=== PATIENT | female | born 2000 | race Caucasian/White ===

== ENCOUNTER 2023-04-16 14:40 | Emergency (ER) | payer BC, SELFPAY ==
[2023-04-16 14:50] VITALS: BP 133/84; PULSE 92; RESP 18; TEMP 36.4; O2SAT 97; BMI 34.3
--- NOTE | 2023-04-16 14:51 | XR_ITS ---
The [address] [address] Patient Name: CHACE KHANNA MRN: [id number] date: 2000 Sex: F Assigned Patient Location: ER Current Patient Location: ER Accession/Order Number: [id number] Exam Date: 04/16/2023 14:55 Report Date: 04/16/2023 15:46 At the request of: MAVERICK FAM Procedure: XR elbow RT min 3V EXAM: XR elbow RT min 3V HISTORY: injury COMPARISON: None. TECHNIQUE: 3 views FINDINGS: There is an impacted fracture of the radial neck. The proximal ulna and distal humerus are intact. Articulations at the elbow are intact. Soft tissue swelling is noted, with displacement of distal humeral fat pads. XR/XR elbow RT min 3V IMPRESSION: Impacted radial neck fracture. Electronically authenticated by: Shalonda SCHULZ Date: 04/16/2023 15:46
--- NOTE | 2023-04-16 15:10 | PC.NURSE ---
Pt tripped and fell onto R arm -- some swelling to area. denies any chance of
--- NOTE | 2023-04-16 16:14 | ED_ITS ---
HPI - General Adult General Chief complaint: Extremity Injury, Upper Stated complaint: FELL ON R ARM, MIGHT BE BROKEN Time Seen by Provider: 04/16/23 15:54 Source: patient Mode of arrival: walk-in Limitations: no limitations History of Present Illness HPI narrative: Patient is a 23-year-old female who is presenting to the Emergency Room with chief complaint of right elbow pain. Patient Was on a ladder and getting down, patient had a misstep and fell to the side, most of her weight fell onto the right elbow. Patient did not hit her head. She has no headache. No headache or neck pain. No abdominal pain, nausea or vomiting. No other extremity injury except to right elbow. Patient is right-hand dominant. Patient states the pain is in the right elbow radiating slightly down into the right forearm mid sectio n. Patient has no right hand and right wrist pain. No right shoulder pain no right clavicle pain. No back pain, no other acute complaints. . All systems are negative except as noted/marked. All systems reviewed and otherwise negative. . Nurses note and vital signs reviewed and patient is not hypoxic. General: The patient appears well and in no apparent distress. Patient is resting comfortably on cart. Patient is not toxic, lethargic, or listless Skin: Warm, dry, no pallor noted. There is no rash noted. No petechiae, purpura. Head: Normocephalic, atraumatic, Patient has no midline or paracervical tenderness to palpation. Patient has full range of motion of cervical spinal no difficulty. Eye: Normal conjunctiva, no drainage, EOMI. PERRL Ears, Nose, Mouth, and Throat: oral mucosa is moist. Nares patent. Mouth without vesicles. Cardiovascular: Regular Rate and Rhythm, no murmur, gallop, rub Respiratory: Patient is in no distress, no accessory muscle use, lungs are clear to auscultation, no wheezing, rales or rhonchi Back: non-tender, GI: soft, no tenderness Musculoskeletal: Patient has full range of motion of all of the extremities Except the right elbow. Patient has limited range of motion of flexion and extension supination pronation of the right elbow with moderate pain. Patient has mild swelling to the proximal 3rd of the right forearm and to the right elbow. No ecchymosis noted. Otherwise no motor, sensory, or focal neurological deficits Neurological: A&O x3, normal speech Psychiatric: Cooperative Related Data Previous Rx's Medication Instructions Recorded hydrocodone 5 mg-acetaminophen 325 1 tab PO Q6H PRN pain #10 tabs 04/16/23 mg tablet Allergies Allergy/AdvReac Type Severity Reaction Status Date / Time No Known Drug Allergies Allergy Verified 04/16/23 14:50 PFSH PFSH Social History Smoking status: Never smoker Exam Constitutional Vital Signs, click to edit/add: Last Vital Signs Temp 97.6 F 04/16/23 14:50 Pulse 92 H 04/16/23 14:50 Resp 18 04/16/23 14:50 BP 133/84 H 04/16/23 14:50 Pulse Ox 97 04/16/23 14:50 O2 Del Method Room Air 04/16/23 14:50 Course Vital Signs Vital signs: Vital Signs Temperature 97.6 F 04/16/23 14:50 Pulse Rate 92 H 04/16/23 14:50 Respiratory Rate 18 04/16/23 14:50 Blood Pressure 133/84 H 04/16/23 14:50 Pulse Oximetry 97 04/16/23 14:50 Oxygen Delivery Method Room Air 04/16/23 14:50 Temperature 97.6 F 04/16/23 14:50 Pulse Rate 92 H 04/16/23 14:50 Respiratory Rate 18 04/16/23 14:50 Blood Pressure 133/84 H 04/16/23 14:50 Pulse Oximetry 97 04/16/23 14:50 Oxygen Delivery Method Room Air 04/16/23 14:50 Medical Decision Making MDM Narrative Medical decision making narrative: Patient has no obvious signs of fracture on the right elbow x-ray, but she does have a positive anterior and posterior fat pad sign. Patient was placed in a long arm posterior splint and sling. Patient was sent home with a few Clements to use if needed for severe pain. Patient took 1000 mg of Tylenol and 800 mg of Motrin prior to arrival with ice. 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 Education done at bedside on Rice therapy, a management, and following up with orthopedic surgery. Patient understands Aleve or sling on at all times. Patient has seen Dr. Melvin or Kristine previously in the past, she was given a name and number to follow up with him again. No questions at discharge. Discharge Plan Discharge Chief Complaint: Extremity Injury, Upper Clinical Impression: Closed fracture of head of right radius Patient Disposition: Home, Self-Care Condition: Fair Prescriptions / Home Meds: New hydrocodone-acetaminophen 5-325 mg tablet 1 tab PO Q6H PRN (Reason: pain) Qty: 10 0RF Instructions: Arm Fracture in Adults (DC), Elbow Fracture (ED), Splint Care (ED) Additional Instructions: Ice 20 minutes on, 20 minutes off. Call orthopedic surgery on Tuesday for follow- up. Keep her splint on at all times. Use your sling as needed as well. Keep your splint dry in the shower or bath. Alternate Tylenol and Motrin every 4 hours for pain. Do not take the pain pill with Tylenol, he could actually take too much Tylenol together. Pain medication may cause constipation, be cautious. As discussed at bedside, Dr. Melvin or Kristine by the orthopedic surgeons down the road in [place] to call on Tuesday. [phone] Stand Alone Forms: Portal Instructions Referrals: Meena Tim MD [Primary Care Provider] - 1 week Discharge Date/Time: 04/16/23 16:26 Procedures ED Procedure Instructions Procedures Procedures: Patient had a long arm posterior splint and sling placed to the right arm Splint was assisted with . the patient was neurovascularly intact before and after the splint was placed. the affected bones/injured area had proper alignment in a splint. Education on splint care at home was given at bedside. Patient and family have no questions at discharge.
== END 2023-04-16 16:26 | disposition home or self-care (01) ==
PROVIDERS: Emergency Provider Emergency Medicine; PCP Family Medicine
DX: S52.121A Displaced fracture of head of right radius, initial encounter for closed fracture (principal); W11.XXXA Fall on and from ladder, initial encounter
CPT/HCPCS: 29105; 73080; 99283

== ENCOUNTER 2023-07-22 14:10 | Outpatient (OUT) | payer BC, SELFPAY ==
[2023-07-22 14:38] LABS: Basophils Percent Auto 0.5 % (0.2-2.0); Eosinophils Absolute Auto 0.2 10^3/uL (0.0-0.7); Hematocrit 39.6 % (36.0-48.0); Hemoglobin 13.5 g/dL (12.0-16.0); Immature Granulocytes Abs Auto 0.02 10^3/uL (0.00-0.03); Immature Granulocytes Pct Auto 0.2 % (0.0-0.5); Lymphocytes Absolute Auto 1.8 10^3/uL (1.2-3.8); Lymphocytes Percent Auto 21.2 % (20.5-60.0); Mean Corpuscular HGB Conc 34.1 g/dL (29.9-35.2); Mean Corpuscular Hemoglobin 29.5 pg (26.7-34.0); Mean Corpuscular Volume 86.5 fL (81.0-99.0); Mean Platelet Volume 8.6 fL (9.5-13.5); Monocytes Absolute Auto 0.8 10^3/uL (0.3-0.8); Monocytes Percent Auto 9.9 % (1.7-12.0); Neutrophils Absolute Auto 5.6 10^3/uL (1.4-6.5); Neutrophils Percent Auto 66.2 % (43.0-75.0); Platelet Count 341 10^3/uL (150-450); Red Blood Count 4.58 10^6/uL (4.20-5.40); Red Cell Distribution Width 12.6 % (11.0-15.0); White Blood Count 8.4 10^3/uL (4.0-11.0)
--- NOTE | 2023-07-22 14:56 | ECG_ITS ---
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
[2023-07-22 15:16] LABS: Free T4 0.85 ng/dL (0.76-1.46)
[2023-07-22 15:21] LABS: Anion Gap 11.5; BUN Creatinine Ratio 12.8; Calcium 8.7 mg/dL (8.5-10.1); Carbon Dioxide 27.3 mmol/L (21.0-32.0); Chloride 103 mmol/L (98-107); Estimated GFR (African America >60 (>=60); Estimated GFR (Non-African Ame >60 (>=60); Glucose 84 mg/dL (74-106); Potassium 3.8 mmol/L (3.5-5.1); Sodium 138 mmol/L (136-145); Thyroid Stimulating Hormone 1.038 uIU/mL (0.358-3.740)
== END 2023-07-22 14:11 | disposition home or self-care (01) ==
PROVIDERS: PCP Family Medicine; Visit Provider Family Medicine
DX: R55 Syncope and collapse (principal); E03.9 Hypothyroidism, unspecified
CPT/HCPCS: 36415; 80048; 84439; 84443; 85025; 93005

== ENCOUNTER 2024-01-11 15:58 | Outpatient (OUT) | payer BC, SELFPAY ==
[2024-01-11 16:17] LABS: Basophils Absolute Auto 0.1 10^3/uL (0.0-0.1); Basophils Percent Auto 0.6 % (0.2-2.0); Eosinophils Absolute Auto 0.2 10^3/uL (0.0-0.7); Eosinophils Percent Auto 2.1 % (0.9-7.0); Hematocrit 39.6 % (36.0-48.0); Hemoglobin 13.1 g/dL (12.0-16.0); Immature Granulocytes Abs Auto 0.03 10^3/uL (0.00-0.03); Immature Granulocytes Pct Auto 0.3 % (0.0-0.5); Lymphocytes Absolute Auto 2.5 10^3/uL (1.2-3.8); Lymphocytes Percent Auto 25.8 % (20.5-60.0); Mean Corpuscular HGB Conc 33.1 g/dL (29.9-35.2); Mean Corpuscular Hemoglobin 28.5 pg (26.7-34.0); Mean Corpuscular Volume 86.1 fL (81.0-99.0); Mean Platelet Volume 8.8 fL (9.5-13.5); Monocytes Absolute Auto 0.8 10^3/uL (0.3-0.8); Monocytes Percent Auto 8.6 % (1.7-12.0); Neutrophils Absolute Auto 6.1 10^3/uL (1.4-6.5); Neutrophils Percent Auto 62.6 % (43.0-75.0); Platelet Count 326 10^3/uL (150-450); Red Cell Distribution Width 13.2 % (11.0-15.0); White Blood Count 9.7 10^3/uL (4.0-11.0)
[2024-01-11 16:49] LABS: Alanine Aminotransferase 35 U/L (14-59); Albumin Globulin Ratio 0.9; Albumin Level 3.5 g/dL (3.4-5.0); Alkaline Phosphatase 70 U/L (46-116); Anion Gap 12.9; Aspartate Amino Transferase 24 U/L (15-37); BUN Creatinine Ratio 14.8; Bilirubin Total 0.2 mg/dL (0.2-1.0); Calcium 9.2 mg/dL (8.5-10.1); Carbon Dioxide 27.9 mmol/L (21.0-32.0); Chloride 101 mmol/L (98-107); Estimated GFR (African America >60 (>=60); Estimated GFR (Non-African Ame >60 (>=60); Glucose 90 mg/dL (74-106); Potassium 3.8 mmol/L (3.5-5.1); Sodium 138 mmol/L (136-145); Thyroid Stimulating Hormone 1.854 uIU/mL (0.358-3.740); Total Protein 7.5 g/dL (6.4-8.2)
[2024-01-11 17:11] LABS: Free T4 0.91 ng/dL (0.76-1.46)
== END 2024-01-11 15:59 | disposition home or self-care (01) ==
LOC: LAB 16:00
PROVIDERS: PCP Family Medicine
DX: F31.12 Bipolar disorder, current episode manic without psychotic features, moderate (principal)
CPT/HCPCS: 36415; 80053; 82306; 82607; 84439; 84443; 85025

== ENCOUNTER 2024-04-14 14:33 | Emergency (ER) | payer BC, SELFPAY ==
[2024-04-14 14:37] VITALS: BP 128/86; PULSE 87; TEMP 36.8; O2SAT 100; BMI 35.5
--- OUTSIDE RECORDS SUMMARY | 2024-04-14 14:41 | XMS_ITS | CCD ---
Author Organization [facility] CliniSym[facility] Care Team Providers Care Acute Care Nursing Assistant Name Role Phone No, Physician Primary Care Provider Unavailshen AVALOS, PHYSICIAN Primary Care Unavailable JAZ CAMPOS Attending Unavailable BAILEY, PHYSICIAN Primary Care Unavailable JOE JIMENEZ Admitting Unavailable JOE JIMENEZ Consulting Unavailable JOE JIMENEZ Attending Unavailable MD Meena Olmos Primary Care Provider DO Jaz Farrell Emergency Provider Meena Leigh Unavailable Sarah Bennett Unavailable AMARILIS, DR MEENA Guido Primary Care Unavailable MISC, DR HYDE Attending Unavailable MISC, DR HYDE Consulting Unavailable MISC, DR HYDE Admitting Unavailable OLMOS, DR MEENA Guido Admitting Unavailable OLMOS, DR MEENA Guido Attending Unavailable AMARILIS, DR MEENA Guido Consulting Unavailable AMARILIS, DR MEENA Guido Primary Care Unavailable AMARILIS, DR MEENA Guido Admitting Unavailable AMARILIS, DR MEENA Gudio Referring Unavailable OLMOS, DR MEENA Guido Attending Unavailable AMARILIS, DR MEENA Guido Consulting Unavailable AMARILIS, DR MEENA Guido Primary Care Unavailable RAJEEV HUBER Admitting Unavailable RAJEEV HUBER Attending Unavailable RAJEEV HUBER Consulting Unavailable AMARILIS, DR MEENA Guido Primary Care Unavailable Mayo Ellis Consulting Unavailable NABOR PIKE Attending Unavailable Cynthia Sarah Unavailable NABOR PIKE Admitting Unavailable NABOR PIKE Attending Unavailable NABOR PIKE Primary Care Unavailable MD Meena Olmos Primary Care Provider JOSE Payne Emergency Provider JOSE Salas Emergency Provider [phone] Arielle Payne Admitting Unavailable Arielle Payne Attending Unavailable Meena Olmos Primary Care Unavailable Tonie Salas Admitting Unavailable Tonie Salas Attending Unavailable Meena Olmos Primary Care Unavailable Allergies Allergy Classification Reported Allergen(s) Allergy Type Date of Onset Reaction(s) Facility (4 sources) patient allergy list reviewed by nurse or physicia Propensity to adverse reactions 7 Comment:Done NWIX Other (4 sources) Allergies Reconciled Propensity to adverse reactions Unknown NWIX Other Medications Current Medications Medication Drug Class(es) Dates Sig (Normalized) Sig (Original) amoxicillin 875 mg / clavulanate 125 mg oral tablet (3 sources) Penicillin-class Antibacterial Start: 10-21-2022 take 1 tablet by mouth every twelve hours Amoxicillin-Pot Clavulanate 875-125 MG 1 tablet Orally every 12 hrs for 10 day(s) Sep, Active cefdinir 300 mg oral capsule (1 source) Cephalosporin Antibacterial Start: 10-28-2023 Cefdinir 300 MG as directed Orally bid for 7 days Oct, Active Norgestimate-Ethin yl Estradiol (11 sources) Progestin, Estrogen Start: 11-24-2023 take 1 tablet by mouth once daily Norgestimate-Ethi nyl Estradiol (Sprintec (28)) 0.25-35 mg-mcg tablet Active 1 TAB PO Daily November 24, 2023 1:00am Start: 06-18-2020 take 1 tablet by [place] [facility] once daily Estarylla 0.25-35 mg-mcg per tablet Take 1 tablet by mouth daily . 0 06/18/2020 Active Start: 06-18-2020 Estarylla 0.25 -35 mg-mcg per tablet take 1 tablet by [place] th every twenty-four hours Sprintec 28 0.25-35 MG-MCG 1 tablet Orally Once a day Active FLUoxetine 10 mg oral capsule (6 sources) Serotonin Reuptake Inhibitor Start: 11-24-2023 take 1 capsule by mouth once daily Fluoxetine (Prozac) 10 mg capsule Active 10 MG PO Daily November 24, 2023 1:00am take 1 capsule by mo [facility] every twenty-four hours PROzac 10 MG 1 tablet once a day Active ibuprofen 800 mg oral tablet (4 sources) Nonsteroidal Anti-inflammatory Drug Start: 07-15-2020 take 1 tablet by mouth every six hours as needed ibuprofen (ADVIL,MOTRIN) 800 MG tablet Take 800 mg by mouth every 6 (six) hours as needed . 0 07/15/2020 Active End: 08-07-2020 take 1 tablet by mouth every six hours as needed ibuprofen (ADVIL,MOTRIN) 400 MG tablet Take 400 mg by mouth every 6 (six) hours as needed for pain . 0 08/07/2020 Discontinued (Stop Taking at Discharge) lamoTRIgine 150 mg oral tablet (12 sources) Mood Stabilizer, Anti-epileptic Agent Start: 11-24-2023 take 150 mg by mouth once daily Lamotrigine Active 150 MG PO Daily November 24, 2023 1:00am Start: 04-17-2022 End: 11-24-2023 take 100 mg by mouth once daily Lamotrigine Discontinued 100 MG PO Daily April 17, 2022 12:00am November 24, 2023 9:32am lamoTRIgine 150 MG Oral for 30 Days Active levothyroxine sodium 0.05 mg oral tablet (12 sources) l-Thyroxine Start: 12-30-2023 take 1 tablet by mouth once daily Levothyroxine Active 0 .ROUTE .COMPLEX December 30, 2023 10:47pm TAKE 1 TABLET BY MOUTH EVERY DAY Start: 04-17-2022 End: 12-30-2023 take 50 ug by mouth once daily Levothyroxine Discontin ued 50 MCG PO Daily April 17, 2022 12:00am December 30, 2023 10:47pm take 1 tablet by [place] th once daily Levothyroxine Sodium 50 MCG TAKE 1 TABLET BY MOUTH EVERY DAY Active QUEtiapine 25 mg oral tablet (6 sources) Atypical Antipsychotic Start: 11-24-2023 take 75 mg by mouth once daily Quetiapine Active 75 MG PO Daily November 24, 2023 1:00am QUEtiapine Fumar ate 25 MG 1 tablet & 1 50 mg. tablet once a day for the 75 mg. Active sertraline 25 mg oral tablet (2 sources) Serotonin Reuptake Inhibitor Start: 07-11-2020 take 1 tablet by mouth once daily sertraline (ZOLOFT) 25 MG tablet Take 25 mg by mouth daily . 0 07/11/2020 Active traMADol hydrochloride 50 mg oral tablet (2 sources) Opioid Agonist Start: 08-07-2020 End: 08-07-2020 take 1 tablet by mouth every four hours as needed for pain traMADoL (ULTRAM) 50 mg tablet Indications: Appendicitis, unspecified appendicitis type Take 1 (one) tablet (50 mg total) by mouth every 4 (four) hours as needed for pain (postoperative pain) . 5 tablet 0 08/07/2020 Active Completed/Discontinued Medications Medication Drug Class(es) Dates Sig (Normalized) Sig (Original) acetaminophen 325 mg oral tablet (3 sources) Start: 08-07-2020 End: 08-07-2020 take 1 tablet by mouth every eight hours 975 mg, Oral, Every 8 hours, First dose on Nicky 08/07/20 at 1800 []Do not give within 6 hours of last dose of IV acetaminophen (OFIRMEV). []Give when patient is tolerating Oral Intake. [] Maximum dose of 4 grams in 24 hours. Start: 08-06-2020 End: 08-07-2020 650 mg, Oral, As needed, mil d pain, Starting Nicky 08/07/20 at 0756, PACU (only) calcium chloride 0.001 meq/ml / glucose 50 mg/ml / potassium chloride 0.004 meq/ml / sodium chloride 0.103 meq/ml / sodium lactate 0.028 meq/ml injectable solution (1 source) Start: 08-06-2020 End: 08-07-2020 take 125 mL intravenous route every hour 125 mL/hr, Intravenous, Continuous, Starting 08/06/20 at 1945 cefoTEtan (CEFOTAN) 2000 mg in sodium chloride (NS) 0.9% 50 mL MBP (2 sources) Start: 08-07-2020 End: 08-07-2020 take 2000 mg intravenous route every twelve hours 2,000 mg, Intravenous, at 100 mL/hr, Every 12 hours, First dose on Nicky 08/07/20 at 0600 Indication: appendicitis Start: 08-06-2020 End: 08-06-2020 cefoTEtan (CEFOTAN) 2000 mg in sodium chloride (NS) 0.9% 50 mL MBP 2 ml dicyclomine hydrochloride 10 mg/ml injection (1 source) Anticholinergic Start: 08-06-2020 End: 08-06-2020 dicyclomine (BENTYL) injection 20 mg 0.4 ml enoxaparin sodium 100 mg/ml prefilled syringe (1 source) Low Molecular Weight Heparin Start: 08-07-2020 End: 08-07-2020 inject 40 mg by subcutaneous injection once daily 40 mg, Subcutaneous, Daily, First dose on Nicky 08/07/20 at 2000 Administer in abdomen unless otherwise directed by prescriber. Notify physician if patient refuses. Indication: VTE Prophylaxis Start: 08-07-2020 End: 08-07-2020 inject 40 mg by subcutaneous injection once daily 40 mg, Subcutaneous, Daily, First dose on Nicky 08/07/20 at 2000 Administer in abdomen unless otherwise directed by prescriber. Notify physician if patient refuses. Indication: VTE Prophylaxis escitalopram 10 mg oral tablet (7 sources) Serotonin Reuptake Inhibitor Escitalopram Oxalate 10 MG Oral for 30 Days Not-Taking/PRN fluticasone propionate 0.05 mg/actuat metered dose nasal spray (4 sources) Corticosteroid Start: 11-24-2023 End: 03-14-2024 Fluticasone Propionate Discontinued 1 SPRAY INTRANASAL Daily November 24, 2023 1:00am March 14, 2024 8:59pm Start: 08-24-2023 take 1 spray(s) nasa l route once daily Fluticasone Propionate 50 MCG/ACT 1 spray in each nostril Nasally Once a day for 14 days Jul, Active Start: 08-24-2023 take 1 spray(s) nasa l route once daily Fluticasone Propionate 50 MCG/ACT 1 spray in each nostril Nasally Once a day for 14 days Jul, Active 0.5 ml HYDROmorphone hydrochloride 1 mg/ml prefilled syringe (1 source) Opioid Agonist Start: 08-06-2020 End: 08-07-2020 take 0.25-0.5 mg intravenous route every three hours as needed 0.25-0.5 mg, Intravenous, Every 3 hours PRN (may repeat), moderate to severe pain, Starting 08/06/20 at 1941 [] Initiate with 0.25 mg IV every 3 hours prn moderate to severe pain. [] For unrelieved pain, may repeat 0.25 mg IV dose within 30 minutes of initial dose. [] If pain is RELIEVED after repeat dose, change to 0.5 mg IV every 3 hours prn moderate to severe pain. [] If pain is UNrelieved after repeat dose, or patient requires dose reduction, call physician. [] May use IV for breakthrough pain or if unable to tolerate oral route. 1 ml morphine sulfate 4 mg/ml cartridge (1 source) Opioid Agonist Start: 08-06-2020 End: 08-06-2020 morphine syringe 4 mg naloxone (NARCAN) injection 0.1 mg (1 source) Start: 08-06-2020 End: 08-07-2020 naloxone (NARCAN) injection 0.1 mg ondansetron 4 mg oral tablet (4 sources) Serotonin-3 Receptor Antagonist Start: 04-17-2022 End: 11-24-2023 take 4 mg by mouth every eight hours Ondansetron Hcl Discontinued 4 MG PO Q8H 12 4 April 17, 2022 12:00am November 24, 2023 9:33am Start: 08-06-2020 End: 08-06-2020 ondansetron (ZOFRAN) injecti on 4 mg ondansetron (ZOFRAN-ODT) disintegrating tablet 4 mg (2 sources) Start: 08-07-2020 End: 08-07-2020 take 1 tablet by mouth every six hours as needed ondansetron (ZOFRAN-ODT) disintegrating tablet 4 mg Start: 08-07-2020 End: 08-07-2020 take 1 tablet by mouth every four hours as needed ondansetron (ZOFRAN-ODT) disintegrating tablet 4 mg oxyCODONE hydrochloride 5 mg oral tablet (1 source) Opioid Agonist Start: 08-06-2020 End: 08-07-2020 take 5-10 mg by mouth every four hours as needed 5-10 mg, Oral, Every 4 hours PRN (may repeat), moderate to severe pain, Starting 08/06/20 at 1950 [] Initiate with 5 mg oral every 4 hours prn moderate to severe pain. [] For unrelieved pain, may repeat 5 mg oral dose within 60 minutes of initial dose. [] If pain is RELIEVED after repeat dose, change to 10 mg oral every 4 hours prn moderate to severe pain. [] If pain is UNrelieved after repeat dose, or patient requires dose reduction, call physician. Sodium Chloride (2 sources) Start: 08-07-2020 End: 08-07-2020 sodium chloride (PF) (NS) flush 5 mL Start: 08-06-2020 End: 08-06-2020 sodium chloride 0.9% (NS) doris fozia 1,000 mL sodium chloride (PF) (NS) 0. 9 % contrast line flush 10 mL (1 source) Start: 08-06-2020 End: 08-07-2020 sodium chloride (PF) (NS) 0. 9 % contrast line flush 10 mL Problems Active Problems Problem Classification Problem Date Documented Date Episodic/Chronic Anxiety disorders (20 sources) Anxiety; Translations: [Anxiety disorder, unspecified] 11-24-2023 Chronic Appendicitis and other appendiceal conditions (4 sources) Appendicitis; Translations: [Disorder of appendix] Onset: 08-06-2020 08-06-2020 Episodic Headache; including migraine (13 sources) Migraine; Translations: [Migraine, unspecified, not intractable, without status migrainosus] 11-24-2023 Chronic Headache; including migraine (12 sources) Headache; Translations: [Headache] 04-17-2022 Episodic Mood disorders (4 sources) Bipolar disorder, current episode manic without psychotic features, moderate; Translations: [BIPOLAR CURRNT MANIC W/O PSYCH MOD] Onset: 12-20-2022 Chronic Nausea and vomiting (3 sources) Nausea and vomiting; Translations: [Nausea with vomiting, unspecified] 04-17-2022 Episodic Open wounds of extremities (2 sources) Laceration of thumb; Translations: [Laceration without foreign body of unspecified thumb without damage to nail, initial encounter] 03-14-2024 Episodic Other aftercare (1 source) Postoperative visit; Translations: [Encounter for other specified surgical aftercare] 03-15-2024 Episodic Other lower respiratory disease (3 sources) Dyspnea; Translations: [Shortness of breath] 04-17-2022 Episodic Other nutritional; endocrine; and metabolic disorders (3 sources) Obese class I; Translations: [Body mass index (BMI) 34.0-34.9, adult] Chronic Other nutritional; endocrine; and metabolic disorders (1 source) Body mass index (BMI) 34.0-34.9, adult; Translations: [Body mass index (BMI) 34.0-34.9, adult] Chronic Other upper respiratory infections (12 sources) Bacterial sinusitis; Translations: [Chronic sinusitis, unspecified] Chronic Other upper respiratory infections (11 sources) Acute upper respiratory infection, unspecified; Translations: [Acute pharyngitis, unspecified] Onset: 02-04-2014 Episodic Syncope (1 source) Syncope and collapse Episodic Thyroid disorders (16 sources) Hypothyroidism; Translations: [Hypothyroidism, unspecified] Onset: 06-09-2022 Chronic Viral infection (3 sources) Viral disease; Translations: [Viral infection, unspecified] 04-17-2022 Episodic Past or Other Problems Problem Classification Problem Date Documented Da te Episodic/Chronic Abdominal pain (5 sources) Lower abdominal pain; Translations: [Left lower quadrant pain] Onset: 06-05-2014 Episodic E Codes: Fall (1 source) Unspecified fall, initial encounter; Translations: [UNSPECIFIED FALL INITIAL ENCOUNTER] Onset: 08-03-2022 Episodic Genitourinary symptoms and ill-defined conditions (4 sources) Dysuria; Translations: [Dysuria] Onset: 11-29-2017 Episodic Intracranial injury (8 sources) Concussion with no loss of consciousness; Translations: [Concussion without loss of consciousness, initial encounter] Onset: 11-09-2016 Episodic Other aftercare (1 source) 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; Translations: [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 CURRENT DRUG THERAPY] Onset: 08-03-2022 Episodic Other aftercare (1 source) snf (current) use of hormonal contraceptives; Translations: [RETIREMENT HORMONAL CONTRACEPTIVES] Onset: 08-03-2022 Episodic Other non-traumatic joint disorders (3 sources) Pain in right ankle and joints of right foot; Translations: [PAIN IN RIGHT ANKLE] Onset: 07-31-2022 Episodic Other skin disorders (4 sources) Acne vulgaris; Translations: [Acne vulgaris] Onset: 12-18-2013 11-24-2023 Episodic Other skin disorders (4 sources) Hirsutism; Translations: [Hirsutism] Onset: 11-18-2016 11-24-2023 Episodic Other skin disorders (2 sources) Acne vulgaris; Translations: [Acne vulgaris] Onset: 12-18-2013 Episodic Other skin disorders (2 sources) Hirsutism; Translations: [Hirsutism] Onset: 11-18-2016 Episodic Ovarian cyst (4 sources) Cyst of ovary; Translations: [Other and unspecified ovarian cyst] Onset: 06-05-2014 Episodic Sprains and strains (1 source) Strain of unspecified muscle and tendon at ankle and foot level, right foot, initial encounter; Translations: [STRAIN UNS M AND T ANK FT LEVL RT INIT] Onset: 08-03-2022 Episodic Unclassified (2 sources) Contact with and (suspected) exposure to covid-19 Z20.822 Urinary tract infections (3 sources) Urinary tract infectious disease; Translations: [Urinary tract infection, site not specified] Onset: 11-29-2017 Episodic Urinary tract infections (1 source) Urinary tract infections; Translations: [Urinary tract infection, site not specified] Onset: 11-29-2017 Viral infection (1 source) COVID-19 Results Test Name Value Interpretation Reference Range Facility Basophils Auto (Bld) [#/Vol] on 01-11-2024 Basophils (Bld) [#/Vol] 0.1 10 3/uL 0.0-0.1 [facility] Basophils/100 WBC Auto (Bld) on 01-11-2024 Basophils/100 WBC (Bld) 0.6 % 0.2-2.0 [facility] Eosinophils/100 WBC Auto (Bl d)on 01-11-2024 Eosinophils/100 WBC (Bld) 2.1 % 0.9-7.0 [facility] Erythrocyte distribution wid th Auto (RBC) [Ratio]on 01-11-2024 Erythrocyte distribution width (RBC) [Ratio] 13.2 % 11.0-15.0 [facility] Estimated glomerular filtrat ion rate (GFR) non- Americanon 01-11-2024 GFR/1.73 sq M.predicted among non-blacks MDRD (S/P/Bld) [Vol rate/Area] mL/min/{1.73_m2} >=60 [facility] Globulin Calc (S) [Mass/Vol] on 01-11-2024 Globulin (S) [Mass/Vol] 4.0 g/dL [facility] Hematocrit Auto (Bld) [Volum e fraction]on 01-11-2024 Hematocrit (Bld) [Volume fraction] 39.6 % 36.0-48.0 [facility] Hemoglobin [Mass/volume] in Bloodon 01-11-2024 Hemoglobin (Bld) [Mass/Vol] 13.1 g/dL 12.0-16.0 [facility] Laboratory - Chemistry and C hemistry - challengeon 01-11-2024 Albumin [Mass/Vol] 3.5 g/dL 3.4-5.0 [facility] ALP [Catalytic activity/Vol] 70 U/L 46-116 [facility] ALT [Catalytic activity/Vol] 35 U/L 14-59 [facility] AST [Catalytic activity/Vol] 24 U/L 15-37 [facility] Bilirubin [Mass/Vol] 0.2 mg/dL 0.2-1.0 [facility] Calcium [Mass/Vol] 9.2 mg/dL 8.5-10.1 [facility] Chloride [Moles/Vol] 101 mmol/L 98-107 [facility] CO2 [Moles/Vol] 27.9 mmol/L 21.0-32.0 [facility] Cobalamin (Vitamin B12) [Mass/Vol] 218.0 pg/mL 193.0-986.0 [facility] Creatinine [Mass/Vol] 0.88 mg/dL 0.55-1.02 [facility] Free T4 [Mass/Vol] 0.91 ng/dL 0.76-1.46 [facility] GFR/1.73 sq M.predicted MDRD (S/P/Bld) [Vol rate/Area] mL/min/{1.73_m2} >=60 [facility] Glucose [Mass/Vol] 90 mg/dL 74-106 [facility] Potassium [Moles/Vol] 3.8 mmol/L 3.5-5.1 [facility] Protein [Mass/Vol] 7.5 g/dL 6.4-8.2 [facility] Sodium [Moles/Vol] 138 mmol/L 136-145 [facility] TSH Qn 1.854 m[IU]/L 0.358-3.740 [facility] Urea nitrogen [Mass/Vol] 13.0 mg/dL 7.0-18.0 [facility] Urea nitrogen/Creatinine [Mass ratio] 14.8 mg/mg [facility] - Hematology and Cell countson 01-11-2024 Immature granulocytes/100 WBC (Bld) 0.3 % 0.0-0.5 [facility] Leukocytes [#/volume] correc jose for nucleated erythrocytes in Blood by Automated counon 01-11-2024 WBC corrected for nucl RBC Auto (Bld) [#/Vol] 9.7 10 3/uL 4.0-11.0 [facility] Lymphocytes Auto (Bld) [#/Vo l]on 01-11-2024 Lymphocytes (Bld) [#/Vol] 2.5 10 3/uL 1.2-3.8 [facility] Lymphocytes/100 WBC Auto (Bl d)on 01-11-2024 Lymphocytes/100 WBC (Bld) 25.8 % 20.5-60.0 [facility] MCH Auto (RBC) [Entitic mass ]on 01-11-2024 MCH (RBC) [Entitic mass] 28.5 pg 26.7-34.0 [facility] MCHC Auto (RBC) [Mass/Vol]on 01-11-2024 MCHC (RBC) [Mass/Vol] 33.1 g/dL 29.9-35.2 [facility] MCV Auto (RBC) [Entitic vol] on 01-11-2024 MCV (RBC) [Entitic vol] 86.1 fL 81.0-99.0 [facility] Monocytes Auto (Bld) [#/Vol] on 01-11-2024 Monocytes (Bld) [#/Vol] 0.8 10 3/uL 0.3-0.8 [facility] Monocytes/100 WBC Auto (Bld) on 01-11-2024 Monocytes/100 WBC (Bld) 8.6 % 1.7-12.0 [facility] Neutrophils Auto (Bld) [#/Vo l]on 01-11-2024 Neutrophils (Bld) [#/Vol] 6.1 10 3/uL 1.4-6.5 [facility] Neutrophils/100 WBC Auto (Bl d)on 01-11-2024 Neutrophils/100 WBC (Bld) 62.6 % 43.0-75.0 [facility] No Panel Informationon 01-10 25-Hydroxy Vitamin D Total 37.6 ng/mL [facility] Comment on above: <20 ng/mL Vit D defi cient20-<30 ng/mL Vit D sivwmnubctes55-154 ng/mL Vit D sufficient>100 ng/mL Potential Toxicity Eosinophils # (Auto) 0.2 10 3/uL 0.0-0.7 [facility] Immature Granulocyte # (Auto) 0.03 10 3/uL 0.00-0.03 [facility] Platelet mean volume Auto (B ld) [Entitic vol]on 01-11-2024 Platelet mean volume (Bld) [Entitic vol] 8.8 fL 9.5-13.5 [facility] Platelets Auto (Bld) [#/Vol] on 01-11-2024 Platelets (Bld) [#/Vol] 326 10 3/uL 150-450 [facility] RBC Auto (Bld) [#/Vol]on RBC (Bld) [#/Vol] 4.60 10 6/uL 4.20-5.40 [facility] Serum or plasma albumin/glob ulin mass ratioon 01-11-2024 Albumin/Globulin [Mass ratio] 0.9 {ratio} [facility] Serum or plasma anion gap de terminationon 01-11-2024 Anion gap [Moles/Vol] 12.9 mmol/L [facility] Physical Therapy Noteon Physical Therapy Note [id number] [facility] Coding Summaryon 09-14-2023 Coding Summary HTMLBase 64 WkxvvaglLKw8jRi+PG hlYWQ+KM9XFXUdC75y yLVrqZ2qG9ITMNeJPy wgQVBQTElOSyIgbmFt AW7fmOZdGANk IC8+HD7sXOCtZspsjZ Xwz9Y3xNY8J70sya0e WGsvaIC9LIIhVfBaxp hwx4zdrMa5LRkiKxzs OyBt YHSyjO15JSC0oE31Mu 84eQBvzKZmm8daqFd6 BfQjCXZbDJU1mYdmYK ezs5NmQRNbF75zrILm c2U6 IGNvbGxhcHNlOyBlbX O5zX3qZFrzruguj7qu cfqpGaq0fj55wFTkd2 A2sRG9L0GpdyW4NIIo bGQg VjoxsCXFdZ3xujjmq8 xvcjogIzAwMDAwMDt0 BCz6XQYvhSzoYvGjRK 33THF9GZFxdnQtS7Sp LWFs hCsvFhZ8o2L5Dv4MK1 OFLjjzR4VTMOBWFQkp dGQ+GP13sh85H5OfBe diXzy2XMSaETF2fGQ1 aD0n KPUoGSpax0H9zIG5O7 DkkoIjch5pm8ezWWNt DSljB79eqWXqr4P4XT KatQP0BUQwoJtlTqZf aG93 Oyc+WJYlsTzty6RtTt oec9stm5qmbJk2Resw ZAJrqlDleZkdFVP0i6 VrGa5cBWAygUX1eYS6 aD0i CfJcRcN4XOmrJ333Cc BffTIpZidrX58yX1Wu dXA+WPNzCum9TUDfqP mqOM4hU8BdJDBynsfn bGVm jSqwYW4iFGSepfyhOX NvzH0wXRNmE7e9SrQs BvT5MSzlQ4BxYVFkst bdXc13vE4pFeHwBuW6 MGlu O5AapyR5VARvxHDkQX rtXKO9I15lg9W8LIJx IRMuOXN6iVV8aR8vlF lnbjogbGVmdDsgdmVy dGlj FXilTEouD582OWZreV snPkNvZGluZyBEYXRl OiAgMTIvMjAvMjAyMz wvdGQ+WPOmHUC6cRqh PSAn sXEnICycKu6icKzkqQ csNG7bQMRbutkaHEAe jS5oVPPieEQsiYztKJ 4hVDQnrgbvb400HuNr MHB0 VGXqiTImW1DdoJ8pKv MiBIMgVZNhM0HvwIPl GWiyW419JPcrEpH5YF HknbKtB5HhUHSitXyw OiB0 o6B9Ti3Gj3UizmxtU0 RhdHVzOiAgRmluYWw8 T0EdTvqkgRU+PC90YW VrLC47DRr7LEM5eDkg PSdi JSWqS2JmgL9zQiUzRZ RkZGRkOyc+PHRhYmxl IHdpZHRoPScxMDAlJy TfnOfwXM6cWe3oIYUj LWNv jKtvuXVjDrXwz4qmAJ NdAJzvOV5ahXhnX8By xJX3GWVwb3w2Qd82S4 4gS4FmxJN+PGNvbCB3 aWR0 xF2kZbYiAeC4UIpyQ1 96MlPbmPOrQchun6qg d9ksjAi2QyV7IEPfee FtbRefBTB2b1FdBi59 Y29s IHdpZHRoPSIxNSUiIH TmnZoprc4xzR5cAx4+ IKMuhBS2fYJ0fE7kYr ZlChP7NWzyH620XxCl cCIv Irmwv1byl8bhlHt6In IwJSIgdmFsaWduPSJ0 e2BlHk67P6EesPlbn9 YfSjn3us24xFNvv2S3 bGU9 Q0RqDUThtzqtuZCtlB igCZ7jWENndgfjVXRt hH1mSLSkA7q1PiAkPu J1QRdoP2AtnvH9QMWx bGQg VUCgbLIKmU4cvqjeu3 xvcjogIzAwMDAwMDt0 TZx6DVTrmHjqMfZbYT L2WdJ1FXG8yEHimX5u bGln jfogeD3vNuq+UGF0aW YgkALXDN2pRshjrNV+ ECKvWVY4iQarFDusNI VelZ4lCXRwU5u3XpLi LjA1 GKzzL0CjmpL6VTFovE CmUQKfhVCHiF7vohtq e8etcpciUbLbFYOsPD h3XFg8DERcbQhzSeAo ZWZ0 DhL2FPF2tQXbuB2sxE gwbcctpZ0dZjb+Qmly pQreFWH6KMp6O3TdHg y9WXUqaMnaEA1ugCVo ZGlu Gv5juPybqMfiTV4sJU Ynmmumu688OiRty6zi YPEzqFJeWMguEOW2C1 9fh9H9HQOrSSMiCZC3 dGV4 xI6ioHvbeanfnBYfcV sgdmVydGljYWwtYWxp R501NGUubKdpYxCzEF f0K9CaBdo8WUSzcXlx ZT0n gLLsGSuwHx1wfXmptV idKW8iFVBxomdrg882 WtJca2laLPMylJLiES haAPX8R72wf6B3BGSi MDAw ATJ3kYY6xA8joKobis ogbGVmdDsgdmVydGlj OLhpRNdyI069ASRhzW doHzVkuQu6F6CwKfx7 ZCBz xZuhUX4wuQMrJMfyVa 7brCxblMpeLZ6iDKCu nnbbj433WmFmn9hmOT ZqhCZtVDtcVNI2L18g b3I6 IITuVCLhVSG7rET5mA 1hbGlnbjogbGVmdDsg dmVydGljYWwtYWxpZ2 46IHRvcDsnPlBhdGll bnQg ZYnkJKu6Q3MbNxejxH I+HE48CVTeRV82zXVq gYZsg7lhgIp6LsFlID TaCWL6xZndUImws3So ZXIt A54yxGFvi8P4XKTabN rnoDKeBhAhbVT2fH0u GQepvutfn5jcazrtLi oyj4omcs68vR26V54i IHdp ZHRoPSIzMCUiIHZhbG rgan8znD0fNj9+PGNv cUM1eTW4bP8vOMXtBz T1QSbjR086TeTniLJt Pjxj s0sny1ttyTn4CqW0RN TlhhPrzGbtVVP5d4Aw Df15B93qLZzdVRIpTR FtEGGhAXLnnOnmyx0b dG9w Ii8+AUYqpVB5sRK6yL 3dDbBbBvI7NWdkO853 DqBguJLbQzuvL72uL7 JvdXA+ZLYcZoa2OQXg dHls NT3gnRGaVDmeAb6cNU T0CgIsTeKuWYrvA9Zm QCLzzqthskokgHO0MP LyFXZpyW69Ys0vlKcd MTBw fNMKiD5cngbwx7ajzo lnCgAgCXIlREo8NSm9 CAWoyHmiQrGmQXX3Wa W5ZTA7eXUepA1ujSgn bjog pH1fS8GeZIRwpqwtSc 30tS7yQtQuWhO4KJnx Oyc+C1CFDRAXMLFXOO 8GDO3HC36BDSfrlVV+ PHRk XBS5xKbjIBlsEUAduO 3zJHMiH5f4RbHqPwT4 MZgfK3MxOTXnffcePm 46hB3iIcAeTkZ6XJwf O2Zv uuW4CLCvqTUbZWjwZN P1H61oq9Z9GXNlQAMq WKQ4yLL1qV9ldTjqqa ogbGVmdDsgdmVydGlj YWwt IAcwG603WSQikCbcTc T0XiZpPuF9QBb2W2Ju Wia0PVLjfCtnAV3eiE EuAGtzGd6qeJiklZzg MC4w VBIpzfpnBUHtyJ4cTR RkhUGsmQtzGW1qPTCu bymms218CvMoKDA0AG LisAObO0MrxE8dHmDl MDAw VTZkD9UhgJCvJIkiC6 73TMwkMqN5BAErbcQs L6ZxEYWuhGscYbM9l5 H7Yz4pDMMHBVLwkpbi dGQ+ KDEeYJY5uZazSVohJK PldK6pBNFzE1u9YuQl ViU8NAiqU6ZyARYtov ufTs72nH5rGyPmGgC5 MGlu T0UbavA4DHNbnQAwHP knIED1U62ja9A9SYEu SDQsKAW1kKJ2hF4nxX lnbjogbGVmdDsgdmVy dGlj XLpfTMqeO584RVCqhY snPkZFTUFMRTwvdGQ+ VCCjNRL1pAvdVMtwCQ EtdC1xUUUiX4k1MsAo LjA1 LDqaT1FmWRFabflkNu 78oC1fZoZoMvT0NPal K0NvbxK1OQOolOWxBI ivIDC2F89wt1B5ROHo MDAw UHT6bPI8bU2fxFekhw ogbGVmdDsgdmVydGlj PXxrFEqvJ624XAYguC vtKzCqE2GornvsCrCE dXRw BFJcLZ64BL27DS78T5 RyPjwvdGFibGU+PHRh YmxlIHdpZHRoPScxMD RfUlTtlYhyTA4jIe4m ZGVy LWNvbGxhcHNlOiBjb2 baGXHxCLkdQZ8uaTqg Q1ImxQU7RIUqd2k1Ke 23H48wU4CsrEJ+PGNv bCB3 tWD0dJ3rRjXhBxO5AL daQ897LxMjbPTvDfij y8vyu5gawOg5PiJcAI VtueFegCybDUJ5f8Gc Lz48 H64rNDneQXUwRJUjQJ TmEFItcKdwbt9rkW5r Ii8+DNSksSC7lXD4lA 5dVsBjSrB1MWjlF239 InRv mPArBxcvM26lV9RciX A+OFRqFpu1HYDtwMco UR2eyPUmPRfdEe1xJX M0CqTmSsPxRRfeK3Ky ZGRp tztxawwkkSL2JCFrQI YukX45Yb4iqAyrRj0t TYCjUJR8HFHpcRLsD0 GadL0rNoLjQAGzUWIk O3Rl aPCpXWisZ943SJbdSp N7NALdfqWzH6PxNIZa jAwdNhW1o8U1Zh8MnZ unqTCfVM5yZkGkFTu7 L3Rk Seo2YQTgoOimGJ9kfE PfQNxhMd4upLjllUav BV9vYFSsynuaq402Nr Peb5jxJNYotFSvUApl ZXM7 Y89sd0Z2UDCkPJQgKA M3jFK2sD9miFjmxeau bGVmdDsgdmVydGljYW krUQvlD386UCMtsMtp PkZJ Qia2S6GkHdn0TFFisI nvKA8rcHEsUAumFo9j qHvxpGerVJ2xNCJpdp bht590FrYdh1hiOTDl cHQg ABnjSAU1Q03ag9X8IP LjXRBwVRB7oVE7oV3v bGlnbjogbGVmdDsgdm UutKrcCDgyUEfoI386 IHRv vVpxXw2RRhm5E1SaPa i7PEJbsXrwZO3oiHBq DQiiCm9deCardRptVZ 3eMVBjtoqbh268ZdSf b2xk SAXvzPAaOVgsUPM1O8 9hl0Q8FLNfKZBsUVO1 hJX8wX8pkWcrhipaqW VmdDsgdmVydGljYWwt YWxp O062DOBtoGsdYrIfnT VyOjwvdGQ+GN24ct36 Y2ZzJyciJil3ZMNbTD F7rDW8qJ4eVUWoYWvf c3R5 bGU (more content not included)... [facility] Provider Orderson 08-24-2023 Provider Orders [id number] Normal [facility] [place] [facility] SARS-CoV-2 (COVID-19) RNA NA A+probe Ql (Resp)on 08-24-2023 SARS-CoV-2 (COVID-19) RNA NIRANJAN+probe Ql (Unsp spec) Positive [facility] Other CBC AUTO DIFFon 12-20-2022 BASO # 0.1 103/ul Normal 0.0-0.1 [facility] Comment on above: Performed By: #### C BC #### [facility] [address] [place] [address] Dr. Ana Leo Basophils/100 WBC (Bld) 0.6 % Normal 0.2-2.0 [facility] Comment on above: Performed By: #### C BC #### [facility] [address] [place] [address] Dr. Ana Leo EO # 0.2 103/ul Normal 0.0-0.7 [facility] Comment on above: Performed By: #### C BC #### [facility] [address] [place] [address] Dr. Ana Leo Eosinophils/100 WBC (Bld) 1.9 % Normal 0.9-7.0 [facility] Comment on above: Performed By: #### C BC #### [facility] [address] [address] [address] Ana Leo Erythrocyte distribution width (RBC) [Ratio] 12.9 % Normal 11.0-15.0 [facility] Comment on above: Performed By: #### C BC #### [facility] [address] [place] [address] Dr. Ana Leo Hematocrit (Bld) [Volume fraction] 39.4 % Normal 36.0-48.0 [facility] Comment on above: Performed By: #### C BC #### [facility] [address] [place] [address] Dr. Ana Leo Hemoglobin (Bld) [Mass/Vol] 13.2 g/dL Normal 12.0-16.0 [facility] Comment on above: Performed By: #### C BC #### [facility] [address] [place] [address] Dr. Ana Leo IG # 0.01 10e3/ul Normal 0.00-0.03 [facility] Comment on above: Performed By: #### C BC #### [facility] [address] [place] [address] Dr. Ana Leo IG % 0.1 % Normal 0.0-0.5 [facility] Comment on above: Performed By: #### C BC #### [facility] [address] [place] [address] Dr. Ana Leo LYMPH # 2.3 103/ul Normal 1.2-3.8 [facility] Comment on above: Performed By: #### C BC #### [facility] [address] [place] [address] Dr. Ana Leo Lymphocytes/100 WBC (Bld) 27.7 % Normal 20.5-60.0 [facility] Comment on above: Performed By: #### C BC #### [facility] [address] [place] [address] Dr. Ana Leo MANUAL DIFF REQ NO Normal [facility] Comment on above: Performed By: #### C BC #### [facility] [address] [place] [address] Dr. Ana Leo MCH (RBC) [Entitic mass] 28.2 pg Normal 26.7-34.0 [facility] Comment on above: Performed By: #### C BC #### [facility] [address] [place] [address] Dr. Ana Leo MCHC (RBC) [Mass/Vol] 33.5 g/dL Normal 29.9-35.2 [facility] Comment on above: Performed By: #### C BC #### [facility] [address] [place] [address] Dr. Ana Leo MCV (RBC) [Entitic vol] 84.2 fL Normal 81.0-99.0 [facility] Comment on above: Performed By: #### C BC #### [facility] [address] [place] [address] Dr. Ana Leo MONO # 0.8 103/ul Normal 0.3-0.8 [facility] Comment on above: Performed By: #### C BC #### [facility] [address] [place] [address] Dr. Ana Leo Monocytes/100 WBC (Bld) 10.0 % Normal 1.7-12.0 [facility] Comment on above: Performed By: #### C BC #### [facility] [address] [place] [address] Dr. Ana Leo NEUT # 5.0 103/ul Normal 1.4-6.5 [facility] Comment on above: Performed By: #### C BC #### [facility] [address] [place] [address] Dr. Ana Leo Neutrophils/100 WBC (Bld) 59.7 % Normal 43.0-75.0 [facility] Comment on above: Performed By: #### C BC #### [facility] [address] [place] [address] Dr. Ana Leo Platelet mean volume (Bld) [Entitic vol] 8.6 fL Critically low 9.5-13.5 [facility] Comment on above: Performed By: #### C BC #### [facility] [address] [place] [address] Dr. Ana Leo PLT 300 103/ul Normal 150-450 [facility] Comment on above: Performed By: #### C BC #### [facility] [address] [place] [address] Dr. Ana Leo RBC 4.68 106/ul Normal 4.20-5.40 [facility] Comment on above: Performed By: #### C BC #### [facility] [address] [place] [address] Dr. Ana Leo WBC 8.4 103/ul Normal 4.0-11.0 [facility] Comment on above: Performed By: #### C BC #### [facility] [address] [place] [address] Dr. Ana Leo LIPID PROFILEon 12-20-2022 CHOL-HDL RATIO NORM SEE BELOW Normal [facility] Comment on above: Result Comment: 3.3 - 4.4 LOW RISK 4.4 - 7.1 AVERAGE RISK 7.1 - 11.0 MODERATE RISK >11.0 HIGH RISK Performed By: #### C MP, TSH, LIPID ####[facility] [id number] [id number]. nAa Leo Cholesterol [Mass/Vol] 173 mg/dL Normal <=200 [facility] Comment on above: Performed By: #### C MP, TSH, LIPID ####[facility] [address] [id number]. Ana Leo Cholesterol in HDL [Mass/Vol] 62 mg/dL Critically high 40-60 [facility] Comment on above: Performed By: #### C MP, TSH, LIPID ####[facility] [address] [id number]. Ana Leo Cholesterol in LDL [Mass/Vol] 85.0 mg/dL Normal [facility] Comment on above: Performed By: #### C MP, TSH, LIPID ####[facility] [address] [id number]. Ana Leo Cholesterol.total/Chol esterol in HDL [Mass ratio] 2.8 {ratio} Normal [facility] Comment on above: Performed By: #### C MP, TSH, LIPID ####[facility] [address] [id number]. Ana Leo HDL NORMAL > or = 60 mg/dl - LOW CARDIOVASCULAR RISK <40 mg/dl - HIGH CARDIOVASCULAR RISK Normal [facility] Comment on above: Performed By: #### C MP, TSH, LIPID ####[facility] [address] [id number]. Ana Leo LDL CALC NORMAL SEE BELOW Normal [facility] Comment on above: Result Comment: <100 mg/dl OPTIMAL 100 - 129 mg/dl NEAR OR ABOVE OPTIMAL 130 - 159 mg/dl BORDERLINE HIGH 160 - 189 mg/dl HIGH >190 mg/dl VERY HIGH Performed By: #### C MP, TSH, LIPID ####[facility] [address] [place], [place] [address]OkDr. Ana Leo Triglyceride [Mass/Vol] 130 mg/dL Normal <=150 [facility] Comment on above: Performed By: #### C MP, TSH, LIPID ####[facility] [address] [place], [place] [address]CvBraulio Leo VLDL CALC 26.0 mg/dL Normal [facility] Comment on above: Performed By: #### C MP, TSH, LIPID ####[facility] [address] [place], [place] [address]RaBraulio Leo PROF 14(COMP METB)on 023 Albumin [Mass/Vol] 3.7 g/dL Normal 3.4-5.0 [facility] Comment on above: Performed By: #### C MP, TSH, LIPID #### [facility] [address] [address] [address] Ana Leo Albumin/Globulin [Mass ratio] 1.0 {ratio} Normal [facility] Comment on above: Performed By: #### C MP, TSH, LIPID #### [facility] [address] [address] [address] Ana Leo ALP [Catalytic activity/Vol] 99 U/L Normal 46-116 [facility] Comment on above: Performed By: #### C MP, TSH, LIPID #### [facility] [address] [address] [address] Ana Leo ALT [Catalytic activity/Vol] 42 U/L Normal 14-59 [facility] Comment on above: Performed By: #### C MP, TSH, LIPID #### [facility] [address] [address] [address] Ana Leo Anion gap [Moles/Vol] 12.6 mmol/L Normal [facility] Comment on above: Performed By: #### C MP, TSH, LIPID #### [facility] [address] [address] [address] Ana Leo AST [Catalytic activity/Vol] 24 U/L Normal 15-37 [facility] Comment on above: Performed By: #### C MP, TSH, LIPID #### [facility] [address] [address] [address] Ana Leo Bilirubin [Mass/Vol] 0.2 mg/dL Normal 0.2-1.0 [facility] Comment on above: Performed By: #### C MP, TSH, LIPID #### [facility] [address] [place] [address] Dr. Ana Leo Calcium [Mass/Vol] 8.8 mg/dL Normal 8.5-10.1 [facility] Comment on above: Performed By: #### C MP, TSH, LIPID #### [facility] [address] [place] [address] Dr. Ana Leo Chloride [Moles/Vol] 105 mmol/L Normal 98-107 [facility] Comment on above: Performed By: #### C MP, TSH, LIPID #### [facility] [address] [place] [address] Dr. Ana Leo CO2 [Moles/Vol] 27.5 mmol/L Normal 21.0-32.0 [facility] Comment on above: Performed By: #### C MP, TSH, LIPID #### [facility] [address] [place] [address] Dr. Ana Leo Creatinine [Mass/Vol] 0.77 mg/dL Normal 0.55-1.02 [facility] Comment on above: Performed By: #### C MP, TSH, LIPID #### [facility] [address] [place] [address] Dr. Ana Leo EGFR-AF [place] >60 Normal >=60 [facility] Comment on above: Performed By: #### C MP, TSH, LIPID #### [facility] [address] [place] [address] Dr. Ana Leo EGFR-NON AF [place] >60 Normal >=60 [facility] Comment on above: Performed By: #### C MP, TSH, LIPID #### [facility] [address] [place] [address] Dr. Ana Leo Globulin (S) [Mass/Vol] 3.6 g/dL Normal [facility] Comment on above: Performed By: #### C MP, TSH, LIPID #### [facility] [address] [place] [address] Dr. Ana Leo Glucose [Mass/Vol] 103 mg/dL Normal 74-106 [facility] Comment on above: Performed By: #### C MP, TSH, LIPID #### [facility] [address] [place] [address] Dr. Ana Leo Potassium [Moles/Vol] 4.1 mmol/L Normal 3.5-5.1 [facility] Comment on above: Performed By: #### C MP, TSH, LIPID #### [facility] [address] [place] [address] Dr. Ana Leo Protein [Mass/Vol] 7.3 g/dL Normal 6.4-8.2 [facility] Comment on above: Performed By: #### C MP, TSH, LIPID #### [facility] [address] [place] [address] Dr. Ana Leo Sodium [Moles/Vol] 141 mmol/L Normal 136-145 [facility] Comment on above: Performed By: #### C MP, TSH, LIPID #### [facility] [address] [place] [address] Dr. Ana Leo Urea nitrogen [Mass/Vol] 9.0 mg/dL Normal 7.0-18.0 [facility] Comment on above: Performed By: #### C MP, TSH, LIPID #### [facility] [address] [place] [address] Dr. Ana Leo Urea nitrogen/Creatinine [Mass ratio] 11.7 mg/mg Normal [facility] Comment on above: Performed By: #### C MP, TSH, LIPID #### [facility] [address] [place] [address] Dr. Ana Leo TSHon 12-20-2022 TSH 1.924 uIU/mL Normal 0.358-3.740 [facility] Comment on above: Performed By: #### C MP, TSH, LIPID ####[facility] [address] [place], [place] [address]XpDr. Ana Leo VITAMIN D 25 OHon 12-20-2022 VIT D 25-OH 49.3 ng/mL Normal [facility] Comment on above: Performed By: #### V ITAD #### [facility] [address] [place], [place] [address] Dr. Ana Leo VIT D RANGES SEE BELOW Normal [facility] Comment on above: Result Comment: <20 ng/mL Vit D deficient 20 - <30 ng/mL Vit D insufficient 30 - 100 ng/mL Vit D sufficient >100 ng/mL Potential Toxicity Performed By: #### V ITAD #### [facility] [address] [address] [address] Ana Leo COVID/FLU/RSV RT-PCRon 10-20 SARS-CoV-2 (COVID-19) RNA NIRANJAN+probe Ql (Unsp spec) Negative [facility] [employer] Other COVID/FLU/RSV RT-PCR Negative [facility] [employer] Other Quick Strepon 10-20-2022 S. pyogenes Org specific cx Ql (Throat) Negative [facility] [employer] Other Quick Strep [facility] [employer] Other XR ANKLE RT MIN 3 VIEWSon XR ANKLE RT MIN 3 VIEWS EXAM: XR ANKLE RT MIN 3 VIEWS HISTORY: Pain COMPARISON: None. TECHNIQUE: Frontal, lateral, oblique views of the right ankle. FINDINGS: Mineralization: Within normal limits. Bones: No acute fractures or dislocations. Ankle mortise intact. Joints: Normal joint spacing. No effusion. Soft Tissues: Unremarkable. IMPRESSION: No acute osseous abnormality. Electronically authenticated by: MAYO ELLIS Date: 2022-07-31 09:22 Normal [facility] FREE T4on 06-09-2022 Free T4 [Mass/Vol] 1.01 ng/dL Normal 0.76-1.46 [facility] Comment on above: Performed By: #### F T4 #### [facility] [address] [address] [address] Ana Leo TSHon 06-09-2022 TSH 1.337 uIU/mL Normal 0.358-3.740 [facility] Comment on above: Performed By: #### T #### [facility] [address] [address] [address] Ana Leo Basophils Auto (Bld) [#/Vol] Ordered By: Jaz Farrell on 04-17-2022 Basophils (Bld) [#/Vol] 0.1 10*3/uL 0.0-0.2 [facility] Basophils/100 WBC Auto (Bld) Ordered By: Jaz Farrell on 04-17-2022 Basophils/100 WBC (Bld) 0.7 % . [facility] Bilirubin Test strip Ql (U)O rdered By: Jaz Farrell on 04-17-2022 Bilirubin Ql (U) Negative Negative [facility] Blood hemoglobin measurement (mass/volume)Ordered By: Jaz Farrell on 04-17-2022 Hemoglobin (Bld) [Mass/Vol] 13.5 g/dL 11.8-15.4 [facility] Blood leukocytes automated c ount (number/volume)Ordered By: Jaz Farrell on 04-17-2022 WBC (Bld) [#/Vol] 7.9 10*3/uL 4.5-11.0 [facility] COVID-19 SOFIAOrdered By: Fox Farrell on 04-17-2022 SARS-CoV+SARS-CoV-2 (COVID-19) Ag IA.rapid Ql (Resp) Negative Negative [facility] Comment on above: This is a duplicate [facility] SARS Antigen (HUMZA) result to be used for statistical tracking purpose only. Color Auto (U)Ordered By: Fox Farrell on 04-17-2022 Color (U) Yellow Yellow [facility] Creatinine and Glomerular fi ltration rate.predicted panel (S/P/Bld)Ordered By: Jaz Farrell on 04-17-2022 Creatinine [Mass/Vol] 0.81 mg/dL 0.44-1.03 [facility] Eosinophils Auto (Bld) [#/Vo l]Ordered By: Jaz Farrell on 04-17-2022 Eosinophils (Bld) [#/Vol] 0.3 10*3/uL 0.0-0.45 [facility] Eosinophils/100 WBC Auto (Bl d)Ordered By: Jaz Farrell on 04-17-2022 Eosinophils/100 WBC (Bld) 3.6 % . [facility] Erythrocyte distribution wid th Auto (RBC) [Ratio]Ordered By: Jaz Farrell on 04-17-2022 Erythrocyte distribution width (RBC) [Ratio] 13.3 % 11.9-15.3 [facility] Estimated glomerular filtrat ion rate (GFR) non- AmericanOrdered By: Jaz Farrell on 04-17-2022 GFR/1.73 sq M.predicted among non-blacks MDRD (S/P/Bld) [Vol rate/Area] > 60 mL/Min [facility] HCG ( test) IA.rapi d Ql (U)Ordered By: Jaz Farrell on 04-17-2022 HCG ( test) Ql (U) Negative [facility] Hematocrit Auto (Bld) [Volum e fraction]Ordered By: Jaz Farrell on 04-17-2022 Hematocrit (Bld) [Volume fraction] 40.0 % 34.0-46.4 [facility] Ketones Auto test strip (U) [Mass/Vol]Ordered By: Jaz Farrell on 04-17-2022 Ketones (U) [Mass/Vol] Negative Negative [facility] - Hematology and Cell countsOrdered By: Jaz Farrell on 04-17-2022 Nucleated RBC/100 WBC (Bld) [Ratio] 0.1 % 0-0.5 [facility] Lymphocytes Auto (Bld) [#/Vo l]Ordered By: Jaz Farrell on 04-17-2022 Lymphocytes (Bld) [#/Vol] 2.2 10*3/uL 1.00-4.8 [facility] Lymphocytes/100 WBC Auto (Bl d)Ordered By: Jaz Farrell on 04-17-2022 Lymphocytes/100 WBC (Bld) 28.1 % . [facility] MCH Auto (RBC) [Entitic mass ]Ordered By: Jaz Farrell on 04-17-2022 MCH (RBC) [Entitic mass] 28.9 pg 24.7-34.3 [facility] MCHC Auto (RBC) [Mass/Vol]Or dered By: Jaz Farrell on 04-17-2022 MCHC (RBC) [Mass/Vol] 33.7 g/dL 32.0-35.0 [facility] MCV Auto (RBC) [Entitic vol] Ordered By: Jaz Farrell on 04-17-2022 MCV (RBC) [Entitic vol] 85.9 fL 80-100 [facility] Monocytes Auto (Bld) [#/Vol] Ordered By: Jaz Farrell on 04-17-2022 Monocytes (Bld) [#/Vol] 0.7 10*3/uL 0.0-0.8 [facility] Monocytes/100 WBC Auto (Bld) Ordered By: Jaz Farrell on 04-17-2022 Monocytes/100 WBC (Bld) 9.4 % . [facility] Neutrophils Auto (Bld) [#/Vo l]Ordered By: Jaz Farrell on 04-17-2022 Neutrophils (Bld) [#/Vol] 4.6 10*3/uL 1.8-7.7 [facility] Neutrophils/100 WBC Auto (Bl d)Ordered By: Jaz Farrell on 04-17-2022 Neutrophils/100 WBC (Bld) 58.2 % . [facility] Nitrite Test strip Ql (U)Ord ered By: Jaz Farrell on 04-17-2022 Nitrite Ql (U) Negative Negative [facility] No Panel InformationOrdered By: Jaz Farrell on 04-17-2022 D-Dimer Quantitative (PE/DVT) < 200 ng/mL 0-243 [facility] Comment on above: The reference range for D-dimer is <243 ng/mL D-dimer units. D-dimer results must be used in conjunction with a clinical pretest probability (PTP) assessment model for deep vein thrombosis (DVT) and pulmonary embolism (PE). Results <230 ng/mL d-dimer units can be used as a negative predictor in patients with low or moderate probability for DVT/PE. Results above the exclusion threshold of 230 ng/ml D-dimer units for DVT/PE may indicate the need for further diagnostic testing. D-Dimer can be increased in hospitalized patients due to co-morbid conditions. Estimated GFR () > 60 mL/Min [facility] Comment on above: GFR estimated refere nce range: According to KDOQI guidelines, <60 ml/min/1.73m2 is sufficient to diagnose a patient with chronic kidney disease. Pharmacy Creatinine Clearance (Chem 117.87 [facility] SARS Antigen (LFIA) [facility] Platelet mean volume Auto (B ld) [Entitic vol]Ordered By: Jaz Farrell on 04-17-2022 Platelet mean volume (Bld) [Entitic vol] 7.0 fL 6.3-10.7 [facility] Platelets Auto (Bld) [#/Vol] Ordered By: Jaz Farrell on 04-17-2022 Platelets (Bld) [#/Vol] 299 10*3/uL 150-450 [facility] Protein Auto test strip (U) [Mass/Vol]Ordered By: Jaz Farrell on 04-17-2022 Protein (U) [Mass/Vol] Negative Negative [facility] RBC Auto (Bld) [#/Vol]Ordere d By: Jaz Farrell on 04-17-2022 RBC (Bld) [#/Vol] 4.66 10*6/uL 3.60-5.00 [facility] Serum or plasma calcium trupti urement (mass/volume)Ordered By: Jaz Farrell on 04-17-2022 Calcium [Mass/Vol] 9.1 mg/dL 8.2-10.2 [facility] Serum or plasma chloride nicole surement (moles/volume)Ordered By: Jaz Farrell on 04-17-2022 Chloride [Moles/Vol] 103 mmol/L 95-114 [facility] Serum or plasma glucose trupti urement (mass/volume)Ordered By: Jaz Farrell on 04-17-2022 Glucose [Mass/Vol] 92 mg/dL 70-100 [facility] Comment on above: ADA recommended refe rence range Random Glucose Reference Range is dependent on time and content of last meal. Glucose of more than 200 mg/dL in a nonstressed, ambulatory subject supports the diagnosis of Diabetes Mellitus. Serum or plasma potassium me asurement (moles/volume)Ordered By: Jaz Farrell on 04-17-2022 Potassium [Moles/Vol] 3.8 mmol/L 3.5-5.1 [facility] Serum or plasma sodium measu rement (moles/volume)Ordered By: Jaz Farrell on 04-17-2022 Sodium [Moles/Vol] 138 mmol/L 136-146 [facility] Serum or plasma total carbon dioxide measurement (moles/volume)Ordered By: Jaz Farrell on 04-17-2022 CO2 [Moles/Vol] 25.8 mmol/L 22.0-30.0 [facility] Serum or plasma urea nitroge n measurement (mass/volume)Ordered By: Jaz Farrell on 04-17-2022 Urea nitrogen [Mass/Vol] 11 mg/dL 06-18 [facility] Specific gravity Auto test s trip (U) [Rel density]Ordered By: Jaz Farrell on 04-17-2022 Specific gravity (U) [Rel density] 1.010 1.001-1.030 [facility] Troponin I.cardiac [Mass/vol ume] in Serum or Plasma by High sensitivity methodOrdered By: Jaz Farrell on 04-17-2022 Troponin I.cardiac High sensitivity method [Mass/Vol] < 3 pg/mL 0-15 [facility] Urine clarity by refractomet ry automatedOrdered By: Jaz Farrell on 04-17-2022 Clarity Refractometry automated (U) Clear Clear [facility] Urine glucose measurement by automated test strip (mass/volume)Ordered By: Jaz Farrell on 04-17-2022 Glucose Auto test strip (U) [Mass/Vol] Normal mg/dL Normal [facility] Urine hemoglobin detection b y automated test stripOrdered By: Jaz Farrell on 04-17-2022 Hemoglobin Auto test strip Ql (U) Negative Negative [facility] Urine leukocyte esterase det ection by automated test stripOrdered By: Jaz Farrell on 04-17-2022 Leukocyte esterase Auto test strip Ql (U) Negative Negative [facility] Urobilinogen Auto test strip (U) [Mass/Vol]Ordered By: Jazdebra Farrell on 04-17-2022 Urobilinogen (U) [Mass/Vol] Normal mg/dL Normal [facility] pH Auto test strip (U)Ordere d By: Jaz Farrell on 04-17-2022 pH (U) 6.5 [pH] 5.0-9.0 [facility] CBC AUTO DIFFon 03-03-2022 BASO # 0.1 103/ul Normal 0.0-0.1 [facility] Comment on above: Performed By: #### C BC #### [facility] [address] [place] [address] Dr. Ana Leo Basophils/100 WBC (Bld) 0.9 % Normal 0.2-2.0 [facility] Comment on above: Performed By: #### C BC #### [facility] [address] [place] [address] Dr. Ana Leo EO # 0.3 103/ul Normal 0.0-0.7 [facility] Comment on above: Performed By: #### C BC #### [facility] [address] [place] [address] Dr. Ana Leo Eosinophils/100 WBC (Bld) 4.0 % Normal 0.9-7.0 [facility] Comment on above: Performed By: #### C BC #### [facility] [address] [place] [address] Dr. Ana Leo Erythrocyte distribution width (RBC) [Ratio] 12.9 % Normal 11.0-15.0 [facility] Comment on above: Performed By: #### C BC #### [facility] [address] [place] [address] Dr. Ana Leo Hematocrit (Bld) [Volume fraction] 39.5 % Normal 36.0-48.0 [facility] Comment on above: Performed By: #### C BC #### [facility] [address] [place] [address] Dr. Ana Leo Hemoglobin (Bld) [Mass/Vol] 12.9 g/dL Normal 12.0-16.0 [facility] Comment on above: Performed By: #### C BC #### [facility] [address] [place] [address] Dr. Ana Leo IG # 0.01 10e3/ul Normal 0.00-0.03 [facility] Comment on above: Performed By: #### C BC #### [facility] [address] [place] [address] Dr. Ana Leo IG % 0.1 % Normal 0.0-0.5 [facility] Comment on above: Performed By: #### C BC #### [facility] [address] [place] [address] Dr. Ana Leo LYMPH # 3.0 103/ul Normal 1.2-3.8 [facility] Comment on above: Performed By: #### C BC #### [facility] [address] [place] [address] Dr. Ana Leo Lymphocytes/100 WBC (Bld) 40.4 % Normal 20.5-60.0 [facility] Comment on above: Performed By: #### C BC #### [facility] [address] [place] [address] Dr. Ana Leo MANUAL DIFF REQ NO Normal [facility] Comment on above: Performed By: #### C BC #### [facility] [address] [place] [address] Dr. Ana Leo MCH (RBC) [Entitic mass] 28.5 pg Normal 26.7-34.0 [facility] Comment on above: Performed By: #### C BC #### [facility] [address] [place] [address] Dr. Ana Leo MCHC (RBC) [Mass/Vol] 32.7 g/dL Normal 29.9-35.2 [facility] Comment on above: Performed By: #### C BC #### [facility] [address] [place] [address] Dr. Ana Leo MCV (RBC) [Entitic vol] 87.2 fL Normal 81.0-99.0 [facility] Comment on above: Performed By: #### C BC #### [facility] [address] [address] [address] Ana Leo MONO # 0.9 103/ul Critically high 0.3-0.8 [facility] Comment on above: Performed By: #### C BC #### [facility] [address] [address] [address] Ana Leo Monocytes/100 WBC (Bld) 12.4 % Critically high 1.7-12.0 [facility] Comment on above: Performed By: #### C BC #### [facility] [address] [place] [address] Dr. Ana Leo NEUT # 3.2 103/ul Normal 1.4-6.5 [facility] Comment on above: Performed By: #### C BC #### [facility] [address] [place] [address] Dr. Ana Leo Neutrophils/100 WBC (Bld) 42.2 % Critically low 43.0-75.0 [facility] Comment on above: Performed By: #### C BC #### [facility] [address] [place] [address] Dr. Ana Leo Platelet mean volume (Bld) [Entitic vol] 9.2 fL Critically low 9.5-13.5 [facility] Comment on above: Performed By: #### C BC #### [facility] [address] [place] [address] Dr. Ana Leo PLT 267 103/ul Normal 150-450 [facility] Comment on above: Performed By: #### C BC #### [facility] [address] [place] [address] Dr. Ana Leo RBC 4.53 106/ul Normal 4.20-5.40 [facility] Comment on above: Performed By: #### C BC #### [facility] [address] [place] [address] Dr. Ana Leo WBC 7.5 103/ul Normal 4.0-11.0 [facility] Comment on above: Performed By: #### C BC #### [facility] [address] [address] [address] Ana Leo LIPID PROFILEon 03-03-2022 CHOL-HDL RATIO NORM SEE BELOW Normal [facility] Comment on above: Result Comment: 3.3 - 4.4 LOW RISK 4.4 - 7.1 AVERAGE RISK 7.1 - 11.0 MODERATE RISK >11.0 HIGH RISK Performed By: #### L IPID, BMP, TSH #### [facility] [address] [address] [address] Ana Leo Cholesterol [Mass/Vol] 164 mg/dL Normal <=200 [facility] Comment on above: Performed By: #### L IPID, BMP, TSH #### [facility] [address] [address] [address] Ana Leo Cholesterol in HDL [Mass/Vol] 65 mg/dL Critically high 40-60 [facility] Comment on above: Performed By: #### L IPID, BMP, TSH #### [facility] [address] [address] [address] Ana Leo Cholesterol in LDL [Mass/Vol] 85.4 mg/dL Normal [facility] Comment on above: Performed By: #### L IPID, BMP, TSH #### [facility] [address] [address] [address] Ana Leo Cholesterol.total/Chol esterol in HDL [Mass ratio] 2.5 {ratio} Normal [facility] Comment on above: Performed By: #### L IPID, BMP, TSH #### [facility] [address] [address] [address] Ana Leo HDL NORMAL > or = 60 mg/dl - LOW CARDIOVASCULAR RISK <40 mg/dl - HIGH CARDIOVASCULAR RISK Normal [facility] Comment on above: Performed By: #### L IPID, BMP, TSH #### [facility] [address] [address] [address] Ana Leo LDL CALC NORMAL SEE BELOW Normal [facility] Comment on above: Result Comment: <100 mg/dl OPTIMAL 100 - 129 mg/dl NEAR OR ABOVE OPTIMAL 130 - 159 mg/dl BORDERLINE HIGH 160 - 189 mg/dl HIGH >190 mg/dl VERY HIGH Performed By: #### L IPID, BMP, TSH #### [facility] [address] [place] [address] Dr. Ana Leo Triglyceride [Mass/Vol] 68 mg/dL Normal <=150 [facility] Comment on above: Performed By: #### L IPID, BMP, TSH #### [facility] [address] [address] [address] Ana Leo VLDL CALC 13.6 mg/dL Normal [facility] Comment on above: Performed By: #### L IPID, BMP, TSH #### [facility] [address] [place] [address] Dr. Ana Leo PROF CHEM 8 (BAS METB)on Anion gap [Moles/Vol] 10.5 mmol/L Normal [facility] Comment on above: Performed By: #### L IPID, BMP, TSH #### [facility] [address] [place] [address] Dr. Ana Leo Calcium [Mass/Vol] 8.5 mg/dL Normal 8.5-10.1 [facility] Comment on above: Performed By: #### L IPID, BMP, TSH #### [facility] [address] [place] [address] Dr. Ana Leo Chloride [Moles/Vol] 107 mmol/L Normal 98-107 [facility] Comment on above: Performed By: #### L IPID, BMP, TSH #### [facility] [address] [place] [address] Dr. Ana Leo CO2 [Moles/Vol] 27.9 mmol/L Normal 21.0-32.0 [facility] Comment on above: Performed By: #### L IPID, BMP, TSH #### [facility] [address] [place] [address] Dr. Ana Leo Creatinine [Mass/Vol] 0.93 mg/dL Normal 0.55-1.02 [facility] Comment on above: Performed By: #### L IPID, BMP, TSH #### [facility] [address] [address] [address] Ana Leo EGFR-AF [place] >60 Normal >=60 [facility] Comment on above: Performed By: #### L IPID, BMP, TSH #### [facility] [address] [address] [address] Ana Leo EGFR-NON AF [place] >60 Normal >=60 [facility] Comment on above: Performed By: #### L IPID, BMP, TSH #### [facility] [address] [address] [address] Ana Leo Glucose [Mass/Vol] 88 mg/dL Normal 74-106 [facility] Comment on above: Performed By: #### L IPID, BMP, TSH #### [facility] [address] [address] [address] Ana Leo Potassium [Moles/Vol] 4.4 mmol/L Normal 3.5-5.1 [facility] Comment on above: Performed By: #### L IPID, BMP, TSH #### [facility] [address] [address] [address] Ana Leo Sodium [Moles/Vol] 141 mmol/L Normal 136-145 [facility] Comment on above: Performed By: #### L IPID, BMP, TSH #### [facility] [address] [address] [address] Ana Leo Urea nitrogen [Mass/Vol] 10.0 mg/dL Normal 7.0-18.0 [facility] Comment on above: Performed By: #### L IPID, BMP, TSH #### [facility] [address] [address] [address] Ana Leo Urea nitrogen/Creatinine [Mass ratio] 10.8 mg/mg Normal [facility] Comment on above: Performed By: #### L IPID, BMP, TSH #### [facility] [address] [address] [address] Ana Leo TSHon 03-03-2022 TSH 4.155 uIU/mL Critically high 0.358-3.740 [facility] Comment on above: Performed By: #### L IPID, BMP, TSH #### [facility] [address] [place], [place] [address] Dr. Ana Leo TSH RANGE SEE BELOW Normal [facility] Comment on above: Result Comment: <0.3 4 UIU/ml HYPERTHYROID 0.34-5.60 UIU/ml EUTHYROID >5.60 UIU/ml HYPOTHYROID Performed By: #### L IPID, BMP, TSH #### [facility] [address] [place], [place] [address] Dr. Ana Leo Basic Metabolic Panelon 07-27 Anion gap [Moles/Vol] 12 mmol/L 10 - 20 mmol/L [facility] Calcium [Mass/Vol] 8.8 mg/dL 8.4 - 10. 2 mg/dL [facility] Chloride [Moles/Vol] 104 mmol/L 98 - 10 8 mmol/L [facility] Creatinine [Mass/Vol] 0.57 mg/dL 0.40 - 1.10 [facility] GFR/1.73 sq M predicted among non-blacks MDRD (S/P/Bld) [Vol rate/Area] The eGFR should be used for monitoring renal function only and not for medication dosing. [facility] GFR/1.73 sq M.predicted CKD-EPI (S/P/Bld) [Vol rate/Area] 132 >=60 mL/min/1.73 m2 [facility] Glucose [Mass/Vol] 161 mg/dL High 65 - 99 mg/dL [facility] HCO3 [Moles/Vol] 24 mmol/L 21 - 32 mmol/L [facility] Interpretation and review of laboratory results Abnormal [facility] Potassium [Moles/Vol] 4.3 mmol/L 3.5 - 5.1 mmol/L [facility] Sodium [Moles/Vol] 136 mmol/L 135 - 145 mmol/L [facility] Urea nitrogen [Mass/Vol] 6 mg/dL Low 8 - 25 mg/dL [facility] Urea nitrogen/Creatinine [Mass ratio] 10.5 mg/mg [facility] CBCon 08-07-2020 Erythrocyte distribution width (RBC) [Entitic vol] 13.5 % 11.6 - 14.8 % [facility] Hematocrit (Bld) [Volume fraction] 37.5 % 36 - 46 % [facility] Hemoglobin (Bld) [Mass/Vol] 12.4 g/dL 12 - 16 g/dL [facility] Interpretation and review of laboratory results Abnormal [facility] MCH (RBC) [Entitic mass] 28.3 pg 26 - 34 pg [facility] MCHC (RBC) [Mass/Vol] 33.1 g/dL 31 - 37 g/dL [facility] MCV (RBC) [Entitic vol] 85.6 fL 80 - 100 fL [facility] Nucleated RBC (Bld) [#/Vol] 0.00 10*3/uL [facility] Nucleated RBC/100 WBC (Bld) [Ratio] 0.0 % [facility] Platelet mean volume (Bld) [Entitic vol] 9.0 fL Low 9.4 - 12.4 fL [facility] Platelets (Bld) [#/Vol] 284 10*3/uL [facility] RBC (Bld) [#/Vol] 4.38 10*6/uL [facility] ealth WBC (Bld) [#/Vol] 20.39 10*3/uL High [facility] CHLAMYDIA/GONORRHOEAE AMPLIF IED RNAon 08-07-2020 C. trachomatis rRNA NIRANJAN+probe Ql (Cvx) Negative Negative [facility] N. gonorrhoeae rRNA NIRANJAN+probe Ql (Cvx) Negative Negative [facility] ECG 12-LEADon 08-07-2020 Atrial Rate 61 BPM [facility] P [place] 33 degrees [facility] P-R Interval 122 ms [facility] Q-T Interval 418 ms [facility] QRS Duration 84 ms [facility] QTC Calculation (Bezet) 420 ms [facility] R [place] 104 degrees [facility] T [place] 49 degrees [facility] Ventricular Rate 61 BPM [facility] Normal sinus rhythm Rightward axis Borderline ECG Confirmed by Ezequiel Raymond MD ([id number]) on 08/07/2020 8:22:51 AM [facility] Otheron 08-07-2020 Interpretation and review of laboratory results Normal [facility] Trichomonas vaginalis Amplif ied RNAon 08-07-2020 T. vaginalis rRNA NIRANJAN+probe Ql (Cvx) Negative Negative [facility] ABORH VERIFICATIONon 020 ABO and Rh group Nom (Bld) O Positive [facility] ABO and Rh group Nom (Bld) ABO/Rh Verification [facility] Comment on above: Patient's ABO/Rh is verified. CBC WITH AUTO DIFFERENTIALon 08-06-2020 Basophils (Bld) [#/Vol] 0.06 10*3/uL [facility] Basophils/100 WBC (Bld) 0.4 % [facility] Eosin[facility] (Bld) [#/Vol] 0.09 10*3/uL [facility] Eosinophils/100 WBC (Bld) 0.6 % [facility] Erythrocyte distribution width (RBC) [Entitic vol] 13.2 % 11.6 - 14.8 % [facility] Hematocrit (Bld) [Volume fraction] 43.8 % 36 - 46 % [facility] Hemoglobin (Bld) [Mass/Vol] 14.1 g/dL 12 - 16 g/dL [facility] Immature granulocytes (Bld) [#/Vol] 0.05 10*3/uL [facility] Immature granulocytes/100 WBC (Bld) 0.30 % [facility] Comment on above: The IG parameter is the percentage of metamyelocytes, myelocytes and promyelocytes. An immature granulocyte count (IG) of 1% or more suggests the possibility of infection, an IG count of 3% is very likely related to an infection. Interpretation and review of laboratory results Abnormal [facility] Lymphocytes (Bld) [#/Vol] 1.50 10*3/uL [facility] Lymphocytes/100 WBC (Bld) 10.1 % [facility] MCH (RBC) [Entitic mass] 27.9 pg 26 - 34 pg [facility] MCHC (RBC) [Mass/Vol] 32.2 g/dL 31 - 37 g/dL [facility] MCV (RBC) [Entitic vol] 86.6 fL 80 - 100 fL [facility] Monocytes (Bld) [#/Vol] 0.82 10*3/uL [facility] Monocytes/100 WBC (Bld) 5.5 % [facility] Neutrophils (Bld) [#/Vol] 12.35 10*3/uL High [facility] Neutrophils/100 WBC (Bld) 83.1 % [facility] Nucleated RBC (Bld) [#/Vol] 0.00 10*3/uL [facility] Nucleated RBC/100 WBC (Bld) [Ratio] 0.0 % [facility] Platelet mean volume (Bld) [Entitic vol] 8.7 fL Low 9.4 - 12.4 fL [facility] Platelets (Bld) [#/Vol] 323 10*3/uL [facility] RBC (Bld) [#/Vol] 5.06 10*6/uL [facility] ealth WBC (Bld) [#/Vol] 14.87 10*3/uL [facility] COVID-19, MOLECULARon 2019 SARS-COV-2 (NGUYEN ID) Not Detected Normal Not Detecte d [facility] Comment on above: Result Comment: This test was performed under the FDA's Emergency Use Authorization (EUA). Testing was performed using the Nguyen ID NOW COVID-19 assay on the ID NOW platform. This test has not been approved for use in asymptomatic patients and its performance in this patient population has not been evaluated. Negative results do not rule out the presence of SARS-CoV-2/COVID-19. Fact sheets for the EUA can be found at the following links: For Healthcare Providers: https://www.fda.gov/media/809098/download For Patients: https://www.fda.gov/media/116480/download Performed By: #### L [id number] #### [facility] [address] [place] [address] Jignesh Leija M.D. [id number] COVID-19, Molecularon 2019 Interpretation and review of laboratory results Normal [facility] SARS-CoV-2 Not Detected Not Detected [facility] Comment on above: This test was perfor med under the FDA's Emergency Use Authorization (EUA). Testing was performed using the Nguyen ID NOW COVID-19 assay on the ID NOW platform. This test has not been approved for use in asymptomatic patients and its performance in this patient population has not been evaluated. Negative results do not rule out the presence of SARS-CoV-2/COVID-19. Fact sheets for the EUA can be found at the following links: For Healthcare Providers: https://www.fda.gov/media/058229/download For Patients: https://www.fda.gov/media/727170/download CT ABDOMEN PELVIS WITH IV CO NTRAST ONLYon 08-06-2020 CT ABDOMEN PELVIS WITH IV CONTRAST ONLY EXAMINATION: CT ABDOMEN PELVIS WITH IV CONTRAST ONLY 08/06/2020 HISTORY: ORDERING SYSTEM PROVIDED HISTORY: RLQ abdominal pain, appendicitis suspected (Age => 12y), TECHNOLOGIST PROVIDED HISTORY: Injury/Trauma Reason for exam: RLQ abdominal pain, appendicitis suspected (Age => 12y) Encounter Type: Initial Mechanism of injury: RLQ abdominal pain, appendicitis suspected (Age => 12y) ORDERING SYSTEM PROVIDED DIAGNOSIS CODES: COMPARISON: None. TECHNIQUE: CT examination of the abdomen and pelvis following the administration of intravenous contrast. Coronal and sagittal reformations were performed. Dose reduction techniques were achieved by using automated exposure control and/or adjustment of mA and/or kV according to patient size and/or use of iterative reconstruction technique. CONTRAST: IOPAMIDOL 76 % INTRAVENOUS SOLUTION - 75 mL, FINDINGS: CT ABDOMEN: The lower cardiac chambers, posterior mediastinal structures and lung bases appear unremarkable. Liver, gallbladder, spleen, pancreas, adrenals and kidneys appear unremarkable. Bowel pattern does not appear to be obstructive. CT PELVIS: The urinary bladder, uterus and ovaries appear age-appropriate. Small volume of fluid within the cul-de-sac is identified. There are a few scattered pelvic phleboliths noted. A proximally located calcified appendicolith measures 9 x 17 mm. Distal to this the appendix is abnormal and fluid-filled. On image number 96 of the axial plane, the appendix has transverse diameter of 18 mm. More distally the lumen has an AP diameter of 11 mm with mild circumferential thickening of the wall noted. Adjacent inflammatory changes are present. There is no evidence of an obvious abscess. No acute osseous abnormality is identified. IMPRESSION: Proximally located calcified appendicolith measuring 9 x 17 mm with associated acute appendicitis. Maximum transverse diameter of the appendix distal to the stone is 18 mm. There are mild surrounding inflammatory changes without obvious abscess. Small volume of free pelvic fluid within the cul-de-sac. Critical results were called by Dr. Brii Young to Dr. CLAIRE GIBSON on 08/06/2020 at 17:30. SKS/jcw Workstation ID: [id number] Dictated by: BRII YOUNG on TueAug 06, 2020 5:32:28 PM EST Transcribed by: LISA JUAREZ on TueAug 06, 2020 5:39:06 PM EST Finalized by: BRII YOUNG on TueAug 06, 2020 6:26:37 PM EST Normal [facility] Comment on above: Order Comment: Injur y/Trauma or Illness?:Injury/Trauma How long have you had these symptoms (acute/chronic)?:Acute Reason for exam?:RLQ abdominal pain, appendicitis suspected (Age => 12y) Type of Exam?:Initial Mechanism of injury?:RLQ abdominal pain, appendicitis suspected (Age => 12y) CT Abdomen Pelvis With IV Co ntrast Onlyon 08-06-2020 Proximally located calcified appendicolith measuring 9 x 17 mm with associated acute appendicitis. Maximum transverse diameter of the appendix distal to the stone is 18 mm. There are mild surrounding inflammatory changes without obvious abscess. Small volume of free pelvic fluid within the cul-de-sac. Critical results were called by Dr. Brii Young to Dr. CLAIRE GIBSON on 08/06/2020 at 17:30. [employer]WhenSoon Workstation ID: [id number] [facility], Rad In [facility] - 08/06/2020 6:29 PM EST EXAMINATION: CT ABDOMEN PELVIS WITH IV CONTRAST ONLY 08/06/2020 HISTORY: ORDERING SYSTEM PROVIDED HISTORY: RLQ abdominal pain, appendicitis suspected (Age => 12y), TECHNOLOGIST PROVIDED HISTORY: Injury/Trauma Reason for exam: RLQ abdominal pain, appendicitis suspected (Age => 12y) Encounter Type: Initial Mechanism of injury: RLQ abdominal pain, appendicitis suspected (Age => 12y) ORDERING SYSTEM PROVIDED DIAGNOSIS CODES: COMPARISON: None. TECHNIQUE: CT examination of the abdomen and pelvis following the administration of intravenous contrast. Coronal and sagittal reformations were performed. Dose reduction techniques were achieved by using automated exposure control and/or adjustment of mA and/or kV according to patient size and/or use of iterative reconstruction technique. CONTRAST: IOPAMIDOL 76 % INTRAVENOUS SOLUTION - 75 mL, FINDINGS: CT ABDOMEN: The lower cardiac chambers, posterior mediastinal structures and lung bases appear unremarkable. Liver, gallbladder, spleen, pancreas, adrenals and kidneys appear unremarkable. Bowel pattern does not appear to be obstructive. CT PELVIS: The urinary bladder, uterus and ovaries appear age-appropriate. Small volume of fluid within the cul-de-sac is identified. There are a few scattered pelvic phleboliths noted. A proximally located calcified appendicolith measures 9 x 17 mm. Distal to this the appendix is abnormal and fluid-filled. On image number 96 of the axial plane, the appendix has transverse diameter of 18 mm. More distally the lumen has an AP diameter of 11 mm with mild circumferential thickening of the wall noted. Adjacent inflammatory changes are present. There is no evidence of an obvious abscess. No acute osseous abnormality is identified. IMPRESSION: Proximally located calcified appendicolith measuring 9 x 17 mm with associated acute appendicitis. Maximum transverse diameter of the appendix distal to the stone is 18 mm. There are mild surrounding inflammatory changes without obvious abscess. Small volume of free pelvic fluid within the cul-de-sac. Critical results were called by Dr. Brii Young to Dr. CLAIRE GIBSON on 08/06/2020 at 17:30. [employer]When[employer] Workstation ID: [id number] [facility] EXAMINATION: CT ABDOMEN PELVIS WITH IV CONTRAST ONLY 08/06/2020 HISTORY: ORDERING SYSTEM PROVIDED HISTORY: RLQ abdominal pain, appendicitis suspected (Age => 12y), TECHNOLOGIST PROVIDED HISTORY: Injury/Trauma Reason for exam: RLQ abdominal pain, appendicitis suspected (Age => 12y) Encounter Type: Initial Mechanism of injury: RLQ abdominal pain, appendicitis suspected (Age => 12y) ORDERING SYSTEM PROVIDED DIAGNOSIS CODES: COMPARISON: None. TECHNIQUE: CT examination of the abdomen and pelvis following the administration of intravenous contrast. Coronal and sagittal reformations were performed. Dose reduction techniques were achieved by using automated exposure control and/or adjustment of mA and/or kV according to patient size and/or use of iterative reconstruction technique. CONTRAST: IOPAMIDOL 76 % INTRAVENOUS SOLUTION - 75 mL, FINDINGS: CT ABDOMEN: The lower cardiac chambers, posterior mediastinal structures and lung bases appear unremarkable. Liver, gallbladder, spleen, pancreas, adrenals and kidneys appear unremarkable. Bowel pattern does not appear to be obstructive. CT PELVIS: The urinary bladder, uterus and ovaries appear age-appropriate. Small volume of fluid within the cul-de-sac is identified. There are a few scattered pelvic phleboliths noted. A proximally located calcified appendicolith measures 9 x 17 mm. Distal to this the appendix is abnormal and fluid-filled. On image number 96 of the axial plane, the appendix has transverse diameter of 18 mm. More distally the lumen has an AP diameter of 11 mm with mild circumferential thickening of the wall noted. Adjacent inflammatory changes are present. There is no evidence of an obvious abscess. No acute osseous abnormality is identified. [facility] Chem 7on 08-06-2020 Anion gap [Moles/Vol] 17 mmol/L 10 - 20 mmol/L [facility] Chloride [Moles/Vol] 100 mmol/L 98 - 10 8 mmol/L [facility] [facility] Creatinine [Mass/Vol] 0.66 mg/dL 0.40 - 1.10 [facility] GFR/1.73 sq M predicted among non-blacks MDRD (S/P/Bld) [Vol rate/Area] The eGFR should be used for monitoring renal function only and not for medication dosing. [facility] GFR/1.73 sq M.predicted CKD-EPI (S/P/Bld) [Vol rate/Area] 126 >=60 mL/min/1.73 m2 [facility] Glucose [Mass/Vol] 88 mg/dL 65 - 99 mg/dL [facility] HCO3 [Moles/Vol] 23 mmol/L 21 - 32 mmol/L [facility] Interpretation and review of laboratory results Normal [facility] Potassium [Moles/Vol] 4.1 mmol/L 3.5 - 5.1 mmol/L [facility] Sodium [Moles/Vol] 136 mmol/L 135 - 145 mmol/L [facility] Urea nitrogen [Mass/Vol] 10 mg/dL 8 - 25 mg/dL [facility] Urea nitrogen/Creatinine [Mass ratio] 15.2 mg/mg [facility] Hepatic Function Panel (LFT) on 08-06-2020 Albumin [Mass/Vol] 4.5 g/dL 3.2 - 5.2 g/dL [facility] ALP [Catalytic activity/Vol] 67 U/L 40 - 140 U/L [facility] ALT [Catalytic activity/Vol] 21 U/L 0 - 40 U/L [facility] AST [Catalytic activity/Vol] 33 U/L 0 - 45 U/L [facility] Comment on above: Slightly Hemolyzed Bilirubin [Mass/Vol] 0.3 mg/dL 0 - 1.3 mg/dL [facility] Bilirubin.conjugated [Mass/Vol] mg/dL 0 - 0.4 mg/dL [facility] Interpretation and review of laboratory results Abnormal [facility] Protein [Mass/Vol] 8.2 g/dL High 6 - 8 g/dL [facility] alth Lipaseon 08-06-2020 Interpretation and review of laboratory results Normal [facility] Lipase [Catalytic activity/Vol] 34 U/L 15 - 65 U/L [facility] Otheron 08-06-2020 Extra Tube Hold for add-ons. [facility] Comment on above: Auto resulted. PT/INRon 08-06-2020 INR Coag (PPP) [Relative time] 1.0 {INR} [facility] Interpretation and review of laboratory results Normal [facility] PT Coag (PPP) [Time] 12.8 s [facility] During the induction phase of oral anticoagulation, the INR may not reflect the anticoagulation status of the patient. Therapeutic ranges for INR's are: Most clinical situations: INR 2.0-3.0 Mechanical Prosthetic Valve: INR 2.5-3.5 Critical: INR >5.0 [facility] Type and Screenon 08-06-2020 ABO and Rh group Nom (Bld) O Positive [facility] Blood group antibody screen Ql Negative [facility] Specimen Expires 08/09/2020 23:59 EST [facility] URINALYSISon 08-06-2020 Bacteria Auto Ql (U) None Seen None Seen /hpf [facility] Bilirubin Ql (U) Negative Negative [facility] th Clarity Refractometry automated (U) Hazy Abnormal Clear [facility] Color (U) Yellow Colorless, Yellow [facility] Epithelial cells.squamous Auto (Urine sed) [#/Area] 11 High [facility] Glucose Auto test strip (U) [Mass/Vol] Negative Negative mg/dL [facility] Hemoglobin Auto test strip Ql (U) Negative Negative [facility] Interpretation and review of laboratory results Abnormal [facility] Ketones (U) [Mass/Vol] 20 Abnormal Negative mg/d L [facility] Leukocyte esterase Auto test strip Ql (U) Negative Negative [facility] h Mucus Auto (Urine sed) [#/Area] Few Abnormal None Seen, Rare /lpf [facility] Nitrite Auto test strip Ql (U) Negative Negative [facility] pH (U) 6.0 [pH] [facility] Protein (U) [Mass/Vol] 30 Abnormal Negative mg/d L [facility] Comment on above: False positive resul ts may occur in urines with large amounts of hemoglobin, pH greater than 8.0, contrast medium, or disinfectants including ammonium compounds. Specific gravity (U) [Rel density] 1.033 High [facility] Urobilinogen (U) [Mass/Vol] <2.0 <2.0 mg/dL [facility] Microscopic examination is performed on all urinalysis samples and only positive findings are reported. The test for blood on the chemical analytic portion of urinalysis may also be positive due to hemoglobinuria and myoglobinuria and if red blood cells are present they are quantified by microscopic examination. [facility] Urine Pregnancyon 08-06-2020 HCG ( test) Ql (U) Negative Negative [facility] Interpretation and review of laboratory results Normal [facility] WET PREPARATIONon 08-06-2020 Clue cells Wet prep Ql (Unsp spec) No Clue Cells Seen No Clue Cells Seen [facility] Interpretation and review of laboratory results Abnormal [facility] T. vaginalis Wet prep Ql (Genital specimen) No Trichomonas Seen No Trichomonas Seen [facility] WBC Wet prep Ql (Unsp spec) Few WBC's Seen Abnormal No WBC's Seen [facility] Yeast Wet prep Ql (Genital specimen) No Yeast Seen No Yeast Seen [facility] Yeast.hyphae Wet prep Ql (Unsp spec) No Yeast with Hyphae Seen No Yeast with Hyphae Seen [facility] Vital Signs Date Time Vital Sign Value Performing Clinician Facility 03-15-2024 15:04-0400 Body height 160.02 cm MD Meena Olmos Work Phone: [facility] 03-15-2024 15:04-0400 Body temperature 97.9 [degF] MD Meena Olmos Work Phone: [facility] 03-15-2024 15:04-0400 Body weight 94 kg MD Meena Olmos Work Phone: [facility] 03-15-2024 15:04-0400 Diastolic blood pressure 80 mm[Hg] MD Meena Olmos Work Phone: [facility] 03-15-2024 15:04-0400 Heart rate 91 /min MD Meena Olmos Work Phone: [facility] 03-15-2024 15:04-0400 Respiratory rate 16 /min MD Meena Olmos Work Phone: [facility] 03-15-2024 15:04-0400 SaO2% (BldA) [Mass fraction] 98 % MD Meena Olmos Work Phone: [facility] 03-15-2024 15:04-0400 Systolic blood pressure 134 mm[Hg] MD Meena Olmos Work Phone: [facility] 03-14-2024 20:58-0400 Body height 160.02 cm MD Meena Olmos Work Phone: [facility] 03-14-2024 20:58-0400 Body temperature 97.7 [degF] MD Meena Olmos Work Phone: [facility] 03-14-2024 20:58-0400 Body weight 96.1 kg MD Meena Olmos Work Phone: [facility] 03-14-2024 20:58-0400 Diastolic blood pressure 94 mm[Hg] MD Meena Olmos Work Phone: [facility] 03-14-2024 20:58-0400 Heart rate 95 /min MD Meena Olmos Work Phone: [facility] 03-14-2024 20:58-0400 Respiratory rate 18 /min MD Meena Olmos Work Phone: [facility] 03-14-2024 20:58-0400 SaO2% (BldA) [Mass fraction] 100 % MD Meena Olmos Work Phone: [facility] 03-14-2024 20:58-0400 Systolic blood pressure 137 mm[Hg] MD Meena Olmos Work Phone: [facility] 08-24-2023 14:55-0500 Body height 162.56 cm Sarah Cynthia Other [facility] Other 08-24-2023 14:55-0500 Body mass index (BMI) [Ratio] 35.49 kg/m2 Sarah Cynthia Other [facility] Other 08-24-2023 14:55-0500 Body temperature 98.2 [degF] Sarah Cynthia Other [facility] Other 08-24-2023 14:55-0500 Body weight 93.8 kg Sarah Cynthia Other [facility] Other 08-24-2023 14:55-0500 Diastolic blood pressure 89 mm[Hg] Sarah Cynthia Other [facility] Other 08-24-2023 14:55-0500 Respiratory rate 18 /min Sarah Cynthia Other [facility] Other 08-24-2023 14:55-0500 SaO2% (BldA) [Mass fraction] 98 % Sarah Cynthia Other [facility] Other 08-24-2023 14:55-0500 Systolic blood pressure 140 mm[Hg] Sarah Cynthia Other [facility] Other 07-22-2023 14:30-0400 Body height 162.56 cm Meena Olmos Other [facility] Other 07-22-2023 14:30-0400 Body mass index (BMI) [Ratio] 34.6 kg/m2 Meena Olmos Other [facility] Other 07-22-2023 14:30-0400 Body weight 91.45 kg Meena Olmos Other [facility] Other 07-22-2023 14:30-0400 Diastolic blood pressure 87 mm[Hg] Meena Olmos Other [facility] Other 07-22-2023 14:30-0400 Systolic blood pressure 123 mm[Hg] Meena Olmos Other [facility] Other 10-20-2022 11:20-0500 Body height 162.56 cm Sarah Bennett Other [facility] Other 10-20-2022 11:20-0500 Body mass index (BMI) [Ratio] 35.18 kg/m2 Sarah Sabrina Other [facility] Other 10-20-2022 11:20-0500 Body temperature 98 [degF] Sarha Bennett Other [facility] Other 10-20-2022 11:20-0500 Body weight 92.99 kg Sarah Bennett Other [facility] Other 10-20-2022 11:20-0500 Diastolic blood pressure 85 mm[Hg] Sarah Bennett Other [facility] Other 10-20-2022 11:20-0500 Respiratory rate 18 /min Sarah Bennett Other [facility] Other 10-20-2022 11:20-0500 SaO2% (BldA) [Mass fraction] 97 % Sarah Bennett Other [facility] Other 10-20-2022 11:20-0500 Systolic blood pressure 125 mm[Hg] Sarah Bennett Other [facility] Other 04-17-2022 18:14-0400 Diastolic blood pressure 80 mm[Hg] MD Meena Olmos Work Phone: [facility] 04-17-2022 18:14-0400 Heart rate 85 /min MD Meena Olmos Work Phone: [facility] 04-17-2022 18:14-0400 Respiratory rate 20 /min MD Meena Olmos Work Phone: [facility] 04-17-2022 18:14-0400 SaO2% (BldA) [Mass fraction] 100 % MD Meena Olmos Work Phone: [facility] 04-17-2022 18:14-0400 Systolic blood pressure 133 mm[Hg] MD Meena Olmos Work Phone: [facility] 04-17-2022 15:27-0400 Body height 162.56 cm MD Meena Olmos Work Phone: [facility] 04-17-2022 15:27-0400 Body temperature 98.7 [degF] MD Meena Olmos Work Phone: [facility] 04-17-2022 15:27-0400 Body weight 92.25 kg MD Meena Olmos Work Phone: [facility] 08-07-2020 12:20-0500 Respiratory Rate 12 /min [facility] 08-07-2020 10:21-0500 Body Temperature 98.49 [degF] [facility] 08-07-2020 10:21-0500 BP Diastolic 73 mm[Hg] [facility] 08-07-2020 10:21-0500 BP Systolic 113 mm[Hg] [facility] 08-07-2020 10:21-0500 Pulse (Heart Rate) 90 /min [facility] 08-07-2020 10:21-0500 Pulse Oximetry 96 % [facility] 08-06-2020 13:08-0500 BMI (Body Mass Index) 31.84 kg/m2 [facility] 08-06-2020 13:08-0500 Body weight 84.14 kg [facility] 08-06-2020 13:08-0500 Height 162.6 cm [facility] 08-06-2020 12:02-0500 BMI (Body Mass Index) 31.93 kg/m2 [facility] 08-06-2020 12:02-0500 Body Temperature 97.59 [degF] [facility] 08-06-2020 12:02-0500 Body weight 84.37 kg [facility] 08-06-2020 12:02-0500 BP Diastolic 88 mm[Hg] [facility] 08-06-2020 12:02-0500 BP Systolic 129 mm[Hg] [facility] 08-06-2020 12:02-0500 Height 162.6 cm [facility] 08-06-2020 12:02-0500 Pulse (Heart Rate) 71 /min [facility] 08-06-2020 12:02-0500 Pulse Oximetry 97 % [facility] 12:050 Respiratory Rate 15 /[facility] En[facility] Encounter Date Encounter Type Care Provider Facility Start: 03-15-2024 End: 03-15-2024 Emergency department patient visit MD Meena Olmos Work Phone: [facility] Work Phone: Start: 03-14-2024 End: 03-14-2024 Emergency department patient visit MD Meena Olmos Work Phone: [facility] Work Phone: Start: 01-11-2024 Non-patient / Non-visit MD Neda Olmos Work Phone: [facility] Work Phone: Start: 10-28-2023 End: 10-28-2023 ambulatory Meena Olmos Other [facility] Other Start: 10-28-2023 Office outpatient vi sit 15 minutes Meena Olmos [facility] Start: 09-01-2023 End: 09-28-2023 ambulatory NABOR APLING Facility:[facility] Start: 08-24-2023 End: 08-24-2023 ambulatory Sarah Cynthia Other [facility] Other Start: 08-24-2023 Office outpatient vi sit 15 minutes Saraheric Marie [facility] Start: 08-22-2023 End: 08-22-2023 ambulatory NABOR B APLING Not Available Start: 07-28-2023 End: 07-28-2023 ambulatory Meena Olmos Other [facility] Other Start: 07-28-2023 Telephone encounter Meena Olmos [facility] Start: 07-22-2023 End: 07-22-2023 ambulatory Meena Olmos Other [facility] Other Start: 07-22-2023 Office outpatient vi sit 15 minutes Meena ARNETT [facility] Start: 12-20-2022 End: 12-21-[address] MEENA OLMOS Facility:[facility] Start: 10-21-2022 (Televisit) Televisit Meena Olmos [facility] Start: 10-21-2022 End: 10-21-2022 ambulatory Meena Olmos Other [facility] Other Start: 10-20-2022 End: 10-20-2022 ambulatory Sarah Bennett Other [facility] Other Start: 10-20-2022 Office outpatient ne w 20 minutes Sarah Bennett [facility] Start: 10-19-2022 End: 10-19-2022 ambulatory Meena Olmos Other [facility] Other Start: 10-19-2022 Telephone encounter Meena Olmos [facility] Start: 07-31-2022 End: 07-31-2022 ambulatory RAJEEV KIM . Facility:[facility] Start: 06-09-2022 End: 06-10-[address] MEENA OLMOS Facility:[facility] Start: 06-01-2022 Adult health examination Urvashi lOmos Other [facility] Other Start: 04-17-2022 End: 04-17-2022 Emergency department patient visit MD Meena Olmos Work Phone: [facility] Start: 03-06-2022 Encounter for genera l adult medical examination without abnormal findings DR MEENA OLMOS [facility] Start: 03-03-2022 End: 03-04-[address] MEENA OLMOS Facility:[facility] Start: 03-03-2022 End: 03-04-2022 Encounter for general adult medical examination without abnormal findings DR MEENA OLMOS Facility:[facility] Start: 08-06-2020 End: 08-07-2020 Patient encounter procedure PHYSICIAN NO [facility] Start: 08-06-2020 End: 08-06-2020 Patient encounter procedure PHYSICIAN [facility] Start: 08-06-2020 End: 08-07-2020 Evaluation and management of inpatient Berlin Garcia Work Phone: [facility] Comment on above: Appendicitis, unspec ified appendicitis type (Primary Dx); Appendicolith Start: 08-06-2020 End: 08-06-2020 Patient encounter procedure Jaz Campos Work Phone: [facility] Comment on above: Lower abdominal pain (Primary Dx) Start: 06-18-2020 Routine infant or ch ild health check Meena Olmos Other [facility] Other Start: 06-18-2020 Well child visit Meena Olmos Other [facility] Other Procedures Date Procedure Procedure Detail Performing Clinician Start: 04-17-2022 Plain chest X-ray MD Meena Olmos Work Phone: Start: 08-07-2020 End: 08-07-2020 APPENDECTOMY LAPAROSCOPIC Edirma Escobedo Work Phone: Start: 08-07-2020 Basic metabolic 2000 panel - Serum or Plasma Terrell John Work Phone: Start: 08-07-2020 Complete blood count (hemogram) panel - Blood by Automated count Terrell John Work Phone: Start: 08-06-2020 COVID-19, MOLECULAR Berlin Garcia Work Phone: Start: 08-06-2020 12 lead ECG Brandon A Conner Work Phone: Start: 08-06-2020 Blood group typing Aracely Lobo Work Phone: Start: 08-06-2020 Ct abdomen & pelvis w/contrast material Claire Gibson Work Phone: Start: 08-06-2020 Cast care: wet Claire Gibson Work Phone: Start: 08-06-2020 Chlamydia trachomatis rRNA assay Claire Gibson Work Phone: Start: 08-06-2020 Iadna trichomonas vaginalis amplified probe tech Claire Gibson Work Phone: Start: 08-06-2020 Neisseria gonorrhoeae nucleic acid detection Claire Gibson Work Phone: Start: 08-06-2020 Basic metabolic 1998 panel - Serum or Plasma Berlin Garcia Work Phone: Start: 08-06-2020 Blood type and Indirect antibody screen panel - Blood Brandon Conner Work Phone: Start: 08-06-2020 Choriogonadotropin ( test) [Presence] in Urine Berlin Garcia Work Phone: Start: 08-06-2020 Complete blood count with white cell differential, automated Berlin Saw Garcia Work Phone: Start: 08-06-2020 Complete blood count with white cell differential, manual Berlin Garcia Work Phone: Start: 08-06-2020 ROLLINS TOP Berlin Garcia Work Phone: Start: 08-06-2020 Hepatic function 2000 panel - Serum or Plasma Claire Gibson Work Phone: Start: 08-06-2020 INR in Platelet poor plasma by Coagulation assay Brandon Conner Work Phone: Start: 08-06-2020 LAVENDER TOP Berlin Garcia Work Phone: Start: 08-06-2020 LIGHT BLUE TOP Berlin Garcia Work Phone: Start: 08-06-2020 LIGHT GREEN TOP Berlin Garcia Work Phone: Start: 08-06-2020 Lipase [Enzymatic activity/volume] in Serum or Plasma Claire Buchanan Arthur Work Phone: Start: 08-06-2020 MINT GREEN TOP Berlin Garcia Work Phone: Start: 08-06-2020 PINK TOP Berlin Garcia Work Phone: Start: 08-06-2020 RAINBOW DRAW Berlin Garcia Work Phone: Start: 08-06-2020 Urinalysis Berlin Garcia Work Phone: Start: 12-01-2016 Contraception care education Meena duff Other SARS Antigen (LFIA) MD Urvashi Olmos Work Phone: Plan of Treatment Date Care Activity Detail Author Start: 05-27-2020 Influenza vaccinatio n given Sequential Influenza Vaccine (#1) [facility] Start: 2016 Hepatitis C antibody , confirmatory test Hepatitis C Screening [facility] Start: 2013 HIV screening HIV Screening [facility] Start: 2009 Vaccination for lexus n papillomavirus HPV Vaccines (1 - 2-dose series) [facility] Start: 2001 History and physical examination, annual for health maintenance Wellness Visit [facility] Start: 1998 Screening for Chlamy olvin trachomatis Chlamydia Screening [facility] Start: 1998 Screening for malign ant neoplasm of cervix Pap Smear [facility] Start: 1998 Tetanus vaccination Tetanus: Every 1 0yrs [facility] Patient Education [facility] Work Phone: Patient referral [facility] Work Phone: Procedure on tissue specimen [facility] Comment on above: Release Upon Orderin g for 1 Occurrences starting 08/07/2020, 1 completed Immunizations Immunization Date Immunization Notes Care Provider Fa cility 03-03-2021 COVID-19 Vaccine Pfi zer - Documentation Purposes Only Meena Olmos Other [facility] 02-10-2021 COVID-19 Vaccine Mod theodore - Documentation Purposes Only Meena Olmos Other [facility] Payers Date Payer Category Payer Self-pay [id number] 2021 [facility] [id number] 2018 Unknown ALEX JOHNSON GUILLAUME/PREF/HMO/PPO [id number] 2018-Present [id number] 1998 Unknown [id number] 03 1998 Unknown [id number] 00 1998 Unknown [id number] 93 1998 Unknown [id number] 93 1998 Unknown [id number] 93 1998 Unknown [id number] 93 1998 Unknown [id number] 1998 Unknown [id number] 18 1959 Unknown [id number] Unknown [id number] 31 Unknown [id number] 31 Social History Date Type Detail Facility Start: 08-06-2020 End: 04-17-2022 Tobacco smoking status [facility] Never smoker [facility] Start: 08-06-2020 End: 08-07-2020 Tobacco use and exposure Never used [facility] Start: 08-06-2020 End: 08-07-2020 Alcohol intake Current drinker of alcohol (finding) [facility] Sex Assigned At Not on file [facility] Exposure to SARS-CoV-2 (event) Not sure [facility] Start: 1998 Sex Assigned At Female F [facility] Sex Assigned At Sex Assigned At Bir th [facility] Other Start: 03-14-2024 Tobacco smoking status NHIS Current Light tobacco smoker [facility] Clinical Notes 10-20-2022 to 03-15-2024 Note Date & Type Note Facility 03-15-2024 Hospital Discharg e instructions Additional Instructions Avoid soaking or swimming Sutures should be removed in 7 to 10 days Observe for signs of infection redness, swelling, purulent drainage follow-up immediately Tylenol or Motrin if needed for pain [facility] Work Phone: 03-14-2024 Hospital Discharg e instructions Additional Instructions Avoid soaking or swimming Sutures should be removed in 7 to 10 days Observe for signs of infection redness, swelling, purulent drainage follow-up immediately Tylenol or Motrin if needed for pain [facility] Work Phone: 10-28-2023 Evaluation note Encounter Date Diagnosis Assessment Notes Oct, Acute non-recurren t maxillary sinusitis (ICD-10 - J01.00) Sinus infections can be triggered by a secondary infection from a viral URI or even seasonal allergies. Take medications as directed. Use saline nasal spray prior to presciption nasal spray. Take medications as directed, and complete all doses of medication even if you start to feel better. Patient advised to follow up with PCP if symptoms persist or worsen. Patient verbalized understanding and agreement with treatment plan. [facility] Other [id number] Note [id number]11-29-2023 Evaluation note* Encounter Date Diagnosis Assessment Notes Treatment Notes Treatment Clinical Notes Jul, Contact with and (suspected) exposure to covid-19 (ICD-10 - Z20.822) Jul, COVID (ICD-10 - U07.1) You were seen here for your congestion and lost of taste. Your covid test was positive. You sinuses were inflammed so you are being prescribed flonase nasal spray. Use as directed fo rhte next 14 days. Drink plenty of fluids. Take tylenol or motrin as needed if you develop fever, body aches, or discomfort. You will need to remain off work for 5 days as your symptoms started today. You may return to work after the 5 days if your symptoms are improving but you should maintain wearing a mask at that time. Follow up with your primary care provider if symptoms persist. Go to the ER if chest pain, shortness o fbreath, pain with breathing. [facility] Other 10-27-2023 Evaluation note* Encounter Date Diagnosis Assessment Notes Treatment Notes Treatment Clinical Notes Jun, Syncope, unspecified syncope type (ICD-10 - R55) Discussed possible etiologies - dehydration, illness, stress. will check labs and EKG to be complete. Has never had this problem before or since this episode. Jun, Hypothyroidism (ICD-10 - E03.9) chronic problem, due for labs. [facility] Other 01-26-2023 Evaluation note* Encounter Date Diagnosis Assessment Notes Treatment Notes Treatment Clinical Notes Sep, Bacterial sinusitis (ICD-10 - J32.9) Sinus infections can be triggered by a secondary infection from a viral URI or even seasonal allergies. Take medications as directed. Use saline nasal spray prior to presciption nasal spray. Take medications as directed, and complete all doses of medication even if you start to feel better. [facility] Other 01-25-2023 Evaluation note* Encounter Date Diagnosis Assessment Notes Treatment Notes Treatment Clinical Notes Sep, Contact with and (suspected) exposure to covid-19 (ICD-10 - Z20.822) Sep, Viral upper respiratory infection (ICD-10 - J06.9) Viral upper respiratory infection: adult home care material was printed Drink plenty fluids, get plenty of rest. Take Tylenol or Motrin as needed for aches pains or fevers. Take Mucinex and/or Sudafed for nasal congestion. Follow-up with your family physician if no improvement in 2 to 3 days. Sep, Sore throat (ICD-10 - J02.9) [facility] Other Evaluation noteNo assessment information available [facility] Work Phone: Evaluation noteNo [facility] [place] Other History general Narrative - Reported* Type Description Date Medical History Hypothyroidism Medical History Anxiety Medical History Bacterial sinusitis Medical History Anxiety and depression Medical History Migraine Medical History Tension-type headache, unspecifi ed, intractable Surgical History appendectomy 2019 Surgical History wisdom teeth Hospitalization History see surgical hx [facility] Other Hospital Discharge instructions Additional Instructions Increase your intake of fluids. Take Motrin Tylenol as needed for any recurrent headache. Take Zofran as prescribed for any nausea or vomiting. Follow-up with your primary care physician within 5 to 7 days for any recurrent symptoms.[facility] [facility] Work Phone: Instructions * Patient Instructions* Jaz Campos PA-C - 08/06/2020 12:48 PM EST Please go directly to [facility] Emergency Room for further evaluation and treatment. Address: [address] [place] [address] documented in this encounter History of Present Illness * Jaz Campos PA-C - 08/06/2020 12:47 PM EST [facility] Brief Evaluation Form Patient Name: [facility] Location: Rhea Corcoran [address] [place] [address] Date Of : Date Of Visit: 2000 08/06/2020 MRN# Provider: [id number] Jaz Campos PA-C SUBJECTIVE Rhea Corcoran presented to [facility] with Abdominal Pain (horrible cramping all over abd since 4am today. rates pain 04/04) HPI: Patient woke up at 0400 with lower abdominal pain that has gotten progressively worse. She has a history of PCOS and ovarian cysts but states this feels different. + for nausea and emesis. No fevers,dysuria, hematuria, diarrhea, hematochezia or melena. Allergies: Patient has no known allergies. OBJECTIVE BP 129/88 Pulse 71 Temp 97.6 F (36.4 C) (Tympanic) Resp 15 Ht 5' 4 Wt 84.4 kg (186 lb) LMP 07/23/2020 (Approximate) SpO2 97% BMI 31.93 kg/m Pertinent PE Findings: + for TTP in bilateral LOWER quadrants. No rebound. ASSESSMENT 1. Lower abdominal pain Medical Decision Making: Send to [facility]. Suspect patient needs labs and advanced imaging. [facility] COVID-19 suspected symptoms and mask status: Does the patient have suspected COVID-19 symptoms? No, the patient does not have COVID-19 symptoms,the patient WAS wearing a mask during the visit and I (the provider) WAS wearing a mask during the visit. PLAN Patient is being recommended to go to [facility] for further evaluation and treatment. Patient will transport via Private Auto (family, friend, or other). Transfer Center Contacted: yes Orders Placed This Visit No orders of the defined types were placed in this encounter. Medication List At End Of Visit Current Outpatient Medications Medication Sig Dispense Refill Estarylla 0.25-35 mg-mcg per tablet ibuprofen (ADVIL,MOTRIN) 400 MG tablet Take 400 mg by mouth every 6 (six) hours as needed for pain . sertraline (ZOLOFT) 25 MG tablet Take 25 mg by mouth daily . ibuprofen (ADVIL,MOTRIN) 800 MG tablet TAKE 1 TABLET BY MOUTH EVERY 6 TO 8 HOURS NEEDED FOR PAIN No current facility-administered medications for this visit. *Transfer location subject to change based on patient condition during transport at EMS discretion. documented in this encounter* Annie Pastrana RN - 08/07/2020 1:55 PM EST Pt educated on AVS. No scripts attached to AVS. Pt is leaving with mother by car. * Anthony Myers MD - 08/07/2020 11:47 AM EST POST-OP CHECK Ms. Rhea Corcoran is a 20 y.o. female s/p L/S appendectomy 08/07/2020 Patient resting comfortably. Pain well controlled. Denies N/V. Incisions C/D/I. 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 documented in this encounter Assessments Diagnosis Lower abdominal pain- Primary Abdominal pain, other specified site Diagnosis Acute appendicitis- Primary Acute appendicitis without mention of peritonitis Appendicitis, unspecified appendicitis type Appendicolith Advance Directives No Advanced Directives Records FoundDocuments on File Type Date Recorded Patient Stock Plan Administrator Expl anation Advance Directives and Living Will Documents on File Type Date Recorded Patient Stock Plan Administrator Expl anation Advance Directives and Livin g Will 08/06/2020 5:25 PM Latest Code Status on File Code Status Date Activated Date Inactivated Comments Full Code - Unverified 08/06/2020 7:26 PM 08/07/2020 4 :20 PM Advance Directive Response Recorded Date/ Time Advance Directives No January 26, 2021 10:27am Advance Directive Response Recorded Date/ Time Advance Directives No January 08, 024 11:40am Summary Purpose Family History No Family History Records FoundNo Family History Records FoundNo Family History Records FoundNo Family History Records FoundNo Family History Records FoundNo Family History Records Found Discharge Instructions * Attachments The following attachments cannot be sent through Care Everywhere. * Appendectomy: Post-op ([place]) documented in this encounter Chief Complaint and Reason for Visit Chief Complaint nausea and dizzyness Chief Complaint left thumb laceratio n Chief Complaint left thumb laceratio n L thumb stitch untied Additional Source Comments Reason for Visit (unrecogniz ed section and content) Reason Comments Abdominal Pain horrible cramping al l over abd since 4am today. rates pain 7/10 Reason Comments Abdominal Pain Emesis Status Reason Specialty Diagnoses / Procedures Referre d By Contact Referred To Contact Diagnoses Acute appendicitis Appendicolith Appendicitis, unspecified appendicitis type INFORMATION SOURCE (unrecogn ized section and content) DATE CREATED AUTHOR 08/06/2020 [facility] DATE CREATED AUTHOR AUTHOR'S ORGANIZ ATION 08/15/2020 [facility] DATE CREATED AUTHOR AUTHOR'S ORGANIZ ATION 12/29/2022 [facility] DATE CREATED AUTHOR AUTHOR'S ORGANIZ ATION 08/23/2023 [facility] EPIC DATE CREATED AUTHOR AUTHOR'S ORGANIZ ATION 10/03/2023 [facility] DATE CREATED AUTHOR AUTHOR'S ORGANIZ ATION 03/16/2024 [facility] Joe Jimenez MD - 08/07/2020 7:03 AM Brandon Coombs MD - 08/06/2020 5:48 PM EST H&P Notes (unrecognized sect ion and content) INTERVAL HISTORY AND PHYSICAL Patient Name: Rhea Corcoran Admit Date: MR #: [id number] : 2000 The H&P has been reviewed and the patient has been examined. I concur with the findings of the H&P. There are no significant changes. It is appropriate to proceed with the planned procedure. Joe Jimenez MD 08/07/2020 7:03 AM General Surgery H&P Note Patient Name: Rhea Corcoran Admit Date: MR #: [id number] : 2000 Assessment/Plan: Ms. Rhea Corcoran is a 20 y.o. female w/ PMH of anxiety and PCOS who presents to [facility] on 08/06 for abdominal pain. -CT AP 08/06: Proximally located calcified appendicolith (9 x 17 mm) and e/o acute appendicitis. Maximum transverse diameter of appendix distal to stone is 18 mm. Appendicitis - Afebrile, leukocytosis WBC 14.9k - Abdominal exam soft, McBurney's point TTP, Rovsing's+ - CT AP 08/06 c/w acute appendicitis w/ calcified appendicolith 9 x 17 mm - Admit to general surgery - NPO and mIVF - Cefotetan, ABx OCTOR - PT/INR and Type&Screen - Pain and nausea control - Will obtain consent - Plan for l/s appendectomy, OR timing TBD - D/w Dr Jimenez History of Present Illness: Ms. Rhea Corcoran is a 20 y.o. female w/ PMH of anxiety and PCOS who presents to [facility] on 08/06 for abdominal pain. Her pain is sharp in nature and started this morning at 4 AM. It has been episodic throughout the day but progressively worsening. Describes the pain as diffuse without radiation. No prior similar symptoms. She also endorses associated nausea, vomiting. Denies fevers, chills, diarrhea/constipation, CP, SOB. CT scan c/w large appendicolith. Denies hx of abdominal surgeries. Denies use of AC/AP. General surgery following for evaluation. Review of Systems: The following system(s) were reviewed. Pertinent positive and negative findings are noted in the HPI. [x] Const [] Eyes [x] ENT [x] Resp [x] CV [x] GI [] [x] Neuro [x] Musc [x] Skin [] Psych [x] Endo [x] Allergy [x] Heme/Lymph Physical Examination: I/O: No intake/output data recorded. VS: BP 132/81 (BP Location: Right arm, Patient Position: Lying) Pulse 62 Temp 98.4 F (36.9 C) (Oral) Resp 16 Ht 5' 4 Wt 84.1 kg (185 lb 8 oz) LMP 07/23/2020 (Approximate) SpO2 99% BMI 31.84 kg/m General: awake and alert, no acute distress. Head: normocephalic, atraumatic Eyes: EOMI, no scleral icterus Neck: trachea midline, soft Cardiovascular: hemodynamically stable Pulmonary: nonlabored breathing, equal chest rise Abdomen: soft, McBurney's point TTP, Rovsing's+ Extremities: no obvious deformities Skin: warm, dry and intact Neurological: JOYCE History: Past Medical History: Diagnosis Date Anxiety PCOS (polycystic ovarian syndrome) Past Surgical History: Procedure Laterality Date WISDOM TOOTH EXTRACTION Family History Problem Relation Age of Onset No Known Problems Mother No Known Problems Father Social History Socioeconomic History Marital status: Single Spouse name: Not on file Number of children: Not on file Years of education: Not on file Highest education level: Not on file Occupational History Not on file Social Needs Financial resource strain: Not on file Food insecurity Worry: Not on file Inability: Not on file Transportation needs Medical: Not on file Non-medical: Not on file Tobacco Use Smoking status: Never Smoker Smokeless tobacco: Never Used Substance and Sexual Activity Alcohol use: Yes Drug use: Never Sexual activity: Not on file Lifestyle Physical activity Days per week: Not on file Minutes per session: Not on file Stress: Not on file Relationships Social connections Talks on phone: Not on file Gets together: Not on file Attends congregation service: Not on file Active member of club or organization: Not on file Attends meetings of clubs or organizations: Not on file Relationship status: Not on file Other Topics Concern Not on file Social History Narrative Not on file Allergy Information: Patient has no known allergies. Home Medications: Outpatient Medications as of 08/06/2020 Medication Sig Estarylla 0.25-35 mg-mcg per tablet ibuprofen (ADVIL,MOTRIN) 800 MG tablet TAKE 1 TABLET BY MOUTH EVERY 6 TO 8 HOURS NEEDED FOR PAIN sertraline (ZOLOFT) 25 MG tablet Take 25 mg by mouth daily . Laboratory and Additional Data Reviewed: Lab Results Component Value Date WBC 14.87 (H) 08/06/2020 HGB 14.1 08/06/2020 HCT 43.8 08/06/2020 MCV 86.6 08/06/2020 PLT 323 08/06/2020 Lab Results Component Value Date GLUCOSE 88 08/06/2020 NA 136 08/06/2020 K 4.1 08/06/2020 CL 100 08/06/2020 BUN 10 08/06/2020 CREATININE 0.66 08/06/2020 Lab Results Component Value Date ALT 21 08/06/2020 AST 33 08/06/2020 ALKPHOS 67 08/06/2020 BILITOT 0.3 08/06/2020 No results found for: INR, PROTIME Imaging: Ct Abdomen Pelvis With Iv Contrast Only Result Date: 08/06/2020 EXAMINATION: CT ABDOMEN PELVIS WITH IV CONTRAST ONLY 08/06/2020 HISTORY: ORDERING SYSTEM PROVIDED HISTORY: RLQ abdominal pain, appendicitis suspected (Age => 12y), TECHNOLOGIST PROVIDED HISTORY: Injury/Trauma Reason for exam: RLQ abdominal pain, appendicitis suspected (Age => 12y) Encounter Type: Initial Mechanism of injury: RLQ abdominal pain, appendicitis suspected (Age => 12y) ORDERING SYSTEM PROVIDED DIAGNOSIS CODES: COMPARISON: None. TECHNIQUE: CT examination of the abdomen and pelvis following the administration of intravenous contrast. Coronal and sagittal reformations were performed. Dose reduction techniques were achieved by using automated exposure control and/or adjustment of mA and/or kV according to patient size and/or use of iterative reconstruction technique. CONTRAST: IOPAMIDOL 76 % INTRAVENOUS SOLUTION - 75 mL, FINDINGS: CT ABDOMEN: The lower cardiac chambers, posterior mediastinal structures and lung bases appear unremarkable. Liver, gallbladder, spleen, pancreas, adrenals and kidneys appear unremarkable. Bowel pattern does not appear to be obstructive. CT PELVIS: The urinary bladder, uterus and ovaries appear age-appropriate. Small volume of fluid within the cul-de-sac is identified. There are a few scattered pelvic phleboliths noted. A proximally located calcified appendicolith measures 9 x 17 mm. Distal to this the appendix is abnormal and fluid-filled. On image number 96 of the axial plane, the appendix has transverse diameter of 18 mm. More distally the lumen has an AP diameter of 11 mm with mild circumferential thickening of the wall noted. Adjacent inflammatory changes are present. There is no evidence of an obvious abscess. No acute osseous abnormality is identified. Proximally located calcified appendicolith measuring 9 x 17 mm with associated acute appendicitis. Maximum transverse diameter of the appendix distal to the stone is 18 mm. There are mild surrounding inflammatory changes without obvious abscess. Small volume of free pelvic fluid within the cul-de-sac. Critical results were called by Dr. Brii Young to Dr. CLAIRE GIBSON on 08/06/2020 at 17:30. 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 I discussed the case with the resident/[employer] and agree with the findings and plan as documented in his/her note and/or any note I supplied. Risks and benefits of lap appy are explained. She agrees to proceed.documented in this encounter Natali Fitzpatrick RN - 08/06/2020 8:58 PM Micheal Venegas - 08/06/2020 5:45 PM Micheal Venegas - 08/06/2020 5:42 PM Claire Walter PA-C - 08/06/2020 5:09 PM EST ED Notes (unrecognized secti on and content) Pt w/ episode of emesis immediately after ingestion of oxicodone, zofran given at this time Dr conner to speak to dr garcia on 1200 Dr conner to write orders for admission [phone] ED PROVIDER NOTE [facility] EMERGENCY DEPARTMENT NAME: Rhea Corcoran AGE: 20 y.o. : 2000 VISIT DATE: 08/06/2020 CSN: [id number] PCP: Physician No Chief Complaint Patient presents with Abdominal Pain Emesis HPI Rhea Corcoran is a 20 y.o. female that has a past medical history of Anxiety and PCOS (polycystic ovarian syndrome).. This is a very pleasant 18-year-old female presenting to the emergency department today after she woke up from sleep around 0400. This was 12 hours prior to arrival. The patient seeks evaluation today after reporting progressive worsening diffuse abdominal pain. Describes the pain is a constant pain. She states is worsened by movement. Not particularly worsened by bumps in the road. She states she was nauseated for most of the day. She is having normal bowel moods. She states however, in the past couple hours she went to an urgent care, and she vomited at the urgent care as well as subsequent 3 times since then. She denies ever having pain like this although she does report a history of PCOS, she states she never had ovarian cyst pain like this. Denies history of frequency urgency. Denies vaginal discharge or concern for sexually transmitted disease. Past Medical History: Diagnosis Date Anxiety PCOS (polycystic ovarian syndrome) Past Surgical History: Procedure Laterality Date WISDOM TOOTH EXTRACTION Family History Problem Relation Age of Onset No Known Problems Mother No Known Problems Father Social History Socioeconomic History Marital status: Single Spouse name: Not on file Number of children: Not on file Years of education: Not on file Highest education level: Not on file Occupational History Not on file Social Needs Financial resource strain: Not on file Food insecurity Worry: Not on file Inability: Not on file Transportation needs Medical: Not on file Non-medical: Not on file Tobacco Use Smoking status: Never Smoker Smokeless tobacco: Never Used Substance and Sexual Activity Alcohol use: Yes Drug use: Never Sexual activity: Not on file Lifestyle Physical activity Days per week: Not on file Minutes per session: Not on file Stress: Not on file Relationships Social connections Talks on phone: Not on file Gets together: Not on file Attends congregation service: Not on file Active member of club or organization: Not on file Attends meetings of clubs or organizations: Not on file Relationship status: Not on file Other Topics Concern Not on file Social History Narrative Not on file Previous Medications Medication Sig Estarylla 0.25-35 mg-mcg per tablet ibuprofen (ADVIL,MOTRIN) 400 MG tablet Take 400 mg by mouth every 6 (six) hours as needed for pain . ibuprofen (ADVIL,MOTRIN) 800 MG tablet TAKE 1 TABLET BY MOUTH EVERY 6 TO 8 HOURS NEEDED FOR PAIN sertraline (ZOLOFT) 25 MG tablet Take 25 mg by mouth daily . No Known Allergies Review of Systems CONSTITUTIONAL: No unexpected weight loss SKIN: No new hair loss EYE: no diplopia ENT: No tinnitus GENITOURINARY: No swelling of genitals GASTROINTESTINAL: No new encopresis ENDOCRINE: No excessive sweating NEUROLOGIC: No new unilateral weakness PSYCHIATRIC: No hallucinations HEMATOLOGIC/LYMPH: No unusual bruising ALLERGIC/IMMUNOLOGIC: No new reported HIV exposure. Patient Vitals for the past 24 hrs: BP Temp Temp src Pulse Resp SpO2 Height Weight 08/06/20 1721 132/81 62 16 99 % 08/06/20 1308 (!) 155/93 98.4 F (36.9 C) Oral 64 16 99 % 5' 4 84.1 kg (185 lb 8 oz) Physical Exam Vitals signs and nursing note reviewed. Exam conducted with a medical receptionist present. Constitutional: Appearance: Normal appearance. She is well-developed. HENT: Head: Normocephalic and atraumatic. Right Ear: External ear normal. Left Ear: External ear normal. Eyes: Pupils: Pupils are equal, round, and reactive to light. Neck: Musculoskeletal: Normal range of motion and neck supple. Cardiovascular: Rate and Rhythm: Normal rate and regular rhythm. Heart sounds: Normal heart sounds. No murmur. No friction rub. No gallop. Pulmonary: Effort: Pulmonary effort is normal. No respiratory distress. Breath sounds: Normal breath sounds. No decreased breath sounds, wheezing, rhonchi or rales. Abdominal: General: Bowel sounds are normal. There is no distension. Palpations: Abdomen is soft. Abdomen is not rigid. Tenderness: There is generalized abdominal tenderness and tenderness in the right lower quadrant, suprapubic area and left lower quadrant. There is no guarding or rebound. Negative signs include Aguayo's sign and McBurney's sign. Comments: Abdomen soft, diffuse, generalized tenderness, worse in the lower abdomen, particularly suprapubic. No peritoneal signs, rigidity. Genitourinary: Comments: Chaperoned by Coleen Hernández RN. Scant white discharge. No cervical motion tenderness. No next tenderness. Skin: General: Skin is warm and dry. Neurological: Mental Status: She is alert and oriented to person, place, and time. GCS: GCS eye subscore is 4. GCS verbal subscore is 5. GCS motor subscore is 6. Laboratory & Radiographic Imaging (if done): Results for orders placed or performed during the hospital encounter of 08/06/20 Wet Preparation Specimen: Cervix; Swab Result Value Ref Range Trich, Wet Prep No Trichomonas Seen No Trichomonas Seen Yeast, Wet Prep No Yeast Seen No Yeast Seen Yeast w/hyphae, Wet prep No Yeast with Hyphae Seen No Yeast with Hyphae Seen WBC, Wet Prep Few WBC's Seen (A) No WBC's Seen Clue Cells, Wet Prep No Clue Cells Seen No Clue Cells Seen Chem 7 Result Value Ref Range Sodium 136 135 - 145 mmol/L Potassium 4.1 3.5 - 5.1 mmol/L Chloride 100 98 - 108 mmol/L Bicarbonate 23 21 - 32 mmol/L Creatinine 0.66 0.40 - 1.10 mg/dL Glucose 88 65 - 99 mg/dL BUN 10 8 - 25 mg/dL eGFR 126 >=60 mL/min/1.73 m2 BUN/Creatinine Ratio 15.2 10.0 - 20.0 Anion Gap 17 10 - 20 mmol/L Urinalysis Result Value Ref Range Color, Urine Yellow Colorless, Yellow Clarity, Urine Hazy (A) Clear Specific Buena 1.033 (H) 1.005 - 1.025 pH, Urine 6.0 5.0 - 7.0 Protein, Urine 30 (A) Negative mg/dL Glucose, Urine Negative Negative mg/dL Ketones, Urine 20 (A) Negative mg/dL Bilirubin, Urine Negative Negative Urobilinogen, Urine <2.0 <2.0 mg/dL Blood, Urine Negative Negative Nitrite, Urine Negative Negative Leukocyte Esterase, Urine Negative Negative Bacteria, Urine None Seen None Seen /hpf Squamous Epithelial 11 (H) 0 - 4 /hpf Mucus, Urine Few (A) None Seen, Rare /lpf Urine Result Value Ref Range Beta-hCG, Ur, Qual Negative Negative Lavender Top Result Value Ref Range Extra Tube Hold for add-ons. Mint Green Top Result Value Ref Range Extra Tube Hold for add-ons. Gold Top Result Value Ref Range Extra Tube Hold for add-ons. Light Blue Top Result Value Ref Range Extra Tube Hold for add-ons. Rollins Top Result Value Ref Range Extra Tube Hold for add-ons. Hepatic Function Panel (LFT) Result Value Ref Range Total Protein 8.2 (H) 6.0 - 8.0 g/dL Albumin 4.5 3.2 - 5.2 g/dL Total Bilirubin 0.3 0.0 - 1.3 mg/dL Bilirubin, Direct <0.1 0.0 - 0.4 mg/dL Alkaline Phosphatase 67 40 - 140 U/L AST 33 0 - 45 U/L ALT 21 0 - 40 U/L Lipase Result Value Ref Range Lipase 34 15 - 65 U/L CBC Auto Differential Result Value Ref Range WBC 14.87 (H) 4.50 - 11.00 K/mcL RBC 5.06 4.00 - 5.20 M/mcL Hemoglobin 14.1 12.0 - 16.0 g/dL Hematocrit 43.8 36.0 - 46.0 % MCV 86.6 80.0 - 100.0 fL MCH 27.9 26.0 - 34.0 pg MCHC 32.2 31.0 - 37.0 g/dL Platelets 323 150 - 400 K/mcL RDW - CV 13.2 11.6 - 14.8 % MPV 8.7 (L) 9.4 - 12.4 fL Neutrophils 83.1 % Lymphocytes 10.1 % Monocytes 5.5 % Eosinophils 0.6 % Basophils 0.4 % IG Percent 0.30 % Neutrophils Abs 12.35 (H) 1.70 - 7.00 K/mcL Lymphocytes Abs 1.50 0.90 - 4.00 K/mcL Monocytes Abs 0.82 0.30 - 0.90 K/mcL Eosinophils Abs 0.09 0.00 - 0.50 K/mcL Basophils Abs 0.06 0.00 - 0.30 K/mcL IG Absolute 0.05 0.00 - 0.30 K/mcL Nucleated RBC 0.0 % Nucleated RBC Abs 0.00 0.00 - 0.00 K/mcL CT Abdomen Pelvis With IV Contrast Only Non-public Result Proximally located calcified appendicolith measuring 9 by 17 mm with associated acute appendicitis. Maximum transverse diameter of the appendix distal to the stone is 18 mm. There are mild surrounding inflammatory changes without obvious abscess. Small volume of free pelvic fluid within the cul-de-sac. Critical results were called by Dr. Brii Young to Dr. CLAIRE GIBSON on 08/06/2020 at 17:30. Workstation ID: [id number] Procedures MDM This is a 20-year-old female presents emergency department for abdominal pain. Patient seeks evaluation today with complaints of abdominal pain, nausea, vomiting. The patient notes that she has been having abdominal, nausea, vomiting for about 12.5 hours prior to arrival. Mild emergency department today, patient has a CBC with leukocytosis of 14. Otherwise hemodynamically stable and afebrile. CT imaging with IV contrast concerning for acute appendicitis with a large 9 x 17 mm appendicolith. On the emergency department today, patient is given pain on emaciation, fluids, as well as IV cefotetan after CT imaging showed acute appendicitis. Will speak with general surgery residents about need for admission and management of acute appendicitis. Clinical Impression: 1. Appendicitis, unspecified appendicitis type 2. Appendicolith ED Disposition ED Disposition Condition Comment Hospitalize Phone call required?: No Follow-up Information Follow-up information has not been specified. Contact information for after-discharge care Follow-up information has not been specified. The patient has been informed that they may have pre-hypertension or hypertension based on a blood pressure reading in the Emergency Department. I recommend that the patient call the primary care provider listed on their discharge instructions or a physician of their choice as soon as possible to arrange follow-up in the next 4 weeks for further evaluation of possible pre-hypertension or hypertension. . Claire Gibson PA-C 08/06/20 1736 Pt reports feeling some pressure in her chest and upper abd. Pt c/o abdominal pain starting 4am, getting worse now pt with n/v documented in this encounter ED Attestation Note - Berlin Garcia MD - 08/06/2020 5:01 PM EST Miscellaneous Notes (unrecog nized section and content) I personally interviewed the patient. I personally examined the patient. I discussed the patient with [employer]/PA. I agree with the [employer] [facility] [employer] treatment plan. I agree with the [employer] plan of care. I agree with the [employer] dispo as documented. The patient has been informed that they may have pre-hypertension or hypertension based on a blood pressure reading in the Emergency Department. I recommend that the patient call the primary care provider listed on their discharge instructions or a physician of their choice as soon as possible to arrange follow-up in the next 4 weeks for further evaluation of possible pre-hypertension or hypertension. . 20-year-old female presents for evaluation of abdominal pain. Woke up with it this morning around 4 AM pretty severe that time. Wax and wane throughout the day but gradually getting worse. Was seen in urgent care and referred here. She started having vomiting about 2 hours ago has been continuous since then. No fevers or chills. No urinary symptoms. On exam: Patient tender palpation diffusely but worse in the suprapubic region right lower quadrant with some guarding in that area. CT scan shows appendicitis with a large appendicolith. Discussed with surgery. Patient given antibiotics. Final disposition per surgery. documented in this encounter Care Teams (unrecognized sec tion and content) Team Status: Inactive Member Role Status Dates Meena Olmos MD Primary Care Provider Active Jaz Farrell DO Emergency Provider Active Team Status: Active Member Role Status Dates Meena Olmos MD Primary Care Provider Active Team Status: Active Member Role Status Dates Meena Olmos MD Primary Care Provide r, Attending Provider Active Start: January 11, 2024 Team Status: Inactive Member Role Status Dates Meena Olmos MD Primary Care Provider Active Start: March 14, 2024 End: March 14, 2024 Arielle Payne APRN Emergency Provider Active Start: March 14, 2024 End: March 14, 2024 Team Status: Inactive Member Role Status Dates Meena Olmos MD Primary Care Provider Active Start: March 15, 2024 End: March 15, 2024 Tonie Salas APRN Emergency Provider Active Start: March 15, 2024 End: March 15, 2024 Goals (unrecognized section and content) Goals may be documented in a n alternate sectionNo InformationNo InformationNo InformationNo InformationNo InformationNo InformationNo InformationGoals may be documented in an alternate sectionGoals may be documented in an alternate section FOR RECORDS PERTAINING TO PATIENTS WHO ARE OR HAVE BEEN ENROLLED IN A CHEMICAL DEPENDENCY/SUBSTANCEABUSE PROGRAM, SOME INFORMATION MAY BE OMITTED. This clinical summary was aggregated from multiple sources. Caution should be exercised in using it in the provision of clinical care. This summary normalizes information from multiple sources, and as a consequence, information in this document may materially change the coding, format and clinical context of patient data. In addition, data may be omitted in some cases. CLINICAL DECISIONS SHOULD BE BASED ON THE PRIMARY CLINICAL RECORDS. [facility] [employer] [facility]. provides no warranty or guarantee of the accuracy or completeness of information in this document.
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
[2024-04-14] MEDS: KETOROLAC TROMETHAMINE 30 MG/ML VIAL IM (15:05)
[2024-04-14 16:38] VITALS: BP 117/88; PULSE 71; O2SAT 98
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
== END 2024-04-14 16:41 | disposition home or self-care (01) ==
PROVIDERS: Emergency Provider Emergency Medicine; PCP Family Medicine
DX: S90.32XA Contusion of left foot, initial encounter (principal); V43.52XA Car driver injured in collision with other type car in traffic accident, initial encounter
CPT/HCPCS: 73610; 73630; 96372; 99284; J1885

== ENCOUNTER 2024-08-31 15:08 | Outpatient (OUT) | payer OTHER, SELFPAY ==
[2024-08-31 15:23] LABS: Basophils Absolute Auto 0.1 10^3/uL (0.0-0.1); Basophils Percent Auto 0.8 % (0.2-2.0); Eosinophils Absolute Auto 0.2 10^3/uL (0.0-0.7); Eosinophils Percent Auto 1.6 % (0.9-7.0); Hematocrit 38.5 % (36.0-48.0); Hemoglobin 12.3 g/dL (12.0-16.0); Immature Granulocytes Abs Auto 0.02 10^3/uL (0.00-0.03); Immature Granulocytes Pct Auto 0.2 % (0.0-0.5); Lymphocytes Absolute Auto 2.7 10^3/uL (1.2-3.8); Mean Corpuscular HGB Conc 31.9 g/dL (29.9-35.2); Mean Corpuscular Hemoglobin 26.9 pg (26.7-34.0); Mean Corpuscular Volume 84.1 fL (81.0-99.0); Mean Platelet Volume 8.5 fL (9.5-13.5); Monocytes Absolute Auto 0.9 10^3/uL (0.3-0.8); Monocytes Percent Auto 8.1 % (1.7-12.0); Neutrophils Absolute Auto 7.7 10^3/uL (1.4-6.5); Neutrophils Percent Auto 66.3 % (43.0-75.0); Platelet Count 336 10^3/uL (150-450); Red Blood Count 4.58 10^6/uL (4.20-5.40); Red Cell Distribution Width 13.2 % (11.0-15.0); White Blood Count 11.6 10^3/uL (4.0-11.0)
[2024-08-31 16:03] LABS: Free T4 0.84 ng/dL (0.76-1.46)
[2024-08-31 16:07] LABS: Anion Gap 11.7; BUN Creatinine Ratio 12.9; Calcium 8.7 mg/dL (8.5-10.1); Carbon Dioxide 26.1 mmol/L (21.0-32.0); Chloride 106 mmol/L (98-107); Estimated GFR (African America >60 (>=60 mL/min/1.73m^2); Estimated GFR (Non-African Ame >60 (>=60 mL/min/1.73m^2); Glucose 93 mg/dL (74-106); Potassium 3.8 mmol/L (3.5-5.1); Sodium 140 mmol/L (136-145); Thyroid Stimulating Hormone 1.434 uIU/mL (0.358-3.740)
== END 2024-08-31 15:09 | disposition home or self-care (01) ==
LOC: LAB 15:12
PROVIDERS: PCP Family Medicine; Visit Provider Family Medicine
DX: Z00.00 Encounter for general adult medical examination without abnormal findings (principal); E03.9 Hypothyroidism, unspecified; R53.83 Other fatigue
CPT/HCPCS: 36415; 80048; 84439; 84443; 85025

== ENCOUNTER 2024-11-13 17:32 | Emergency (ER) | payer OTHER, SELFPAY ==
[2024-11-13 17:38] VITALS: BP 174/96; PULSE 96; TEMP 36.6; O2SAT 100; BMI 38.6
--- OUTSIDE RECORDS SUMMARY | 2024-11-13 17:39 | XMS_ITS | CCD ---
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 Name Role Phone No, Physician Primary Care Provider Unavailshen AVALOS, PHYSICIAN Primary Care Unavailable JAZ CAMPOS Attending Unavailable BAILEY, PHYSICIAN Primary Care Unavailable ZANE JIMENEZ Admitting Unavailable ZANE JIMENEZ Consulting Unavailable ZANE JIMENEZ Attending Unavailable MD Sarah Olmos Primary Care Provider DO Jaz Farrell Emergency Provider Sarah Leigh Unavailable Sarah Bennett Unavailable MAARILIS, DR SARAH Guido Primary Care Unavailable MISC, DR HYDE Attending Unavailable MISC, DR HYDE Consulting Unavailable MISC, DR HYDE Admitting Unavailable OLMOS, DR SARAH Guido Admitting Unavailable OLMOS, DR SARAH Guido Attending Unavailable AMARILIS, DR SARAH Guido Consulting Unavailable AMARILIS, DR SARAH Guido Primary Care Unavailable AMARILIS, DR SARAH Guido Admitting Unavailable OLMOS, DR SARAH Guido Referring Unavailable OLMOS, DR SARAH Guido Attending Unavailable OLMOS, DR SARAH Guido Consulting Unavailable AMARILIS, DR SARAH Guido Primary Care Unavailable RAJEEV HUBER Admitting Unavailable RAJEEV HUBER Attending Unavailable RAJEEV HUBER Consulting Unavailable AMARILIS, DR SARAH Guido Primary Care Unavailable Mayo Ellis Consulting Unavailable Cynthia, Sarah Unavailable NABOR PIKE Admitting Unavailable GLENDY, NABOR Attending Unavailable NABOR PIKE Primary Care Unavailable MD Sarah Olmos Primary Care Provider [phone] JOSE Payne Emergency Provider [phone] JOSE Salas Emergency Provider [phone] Tonie Salas Attending Unavailable Tonie Salas Admitting Unavailable Sarah Olmos Primary Care Unavailable Arielle Payne Admitting Unavailable Sarah Olmos Primary Care Unavailable Arielle Payne Attending Unavailable Sarah Olmos MD Primary Care Provider [phone] THELMA RICHARDSON Attending Unavailable THELMA RICHARDSON Referring Unavailable VALORIEDEBRA Attending Unavailable Allergies Allergy Classification Reported Allergen(s) Allergy Type Date of Onset Reaction(s) Facility (4 sources) patient allergy list reviewed by nurse or physicia Propensity to adverse reactions Comment:Done [facility] Other (4 sources) Allergies Reconciled Propensity to adverse reactions Unknown [facility] Other Medications Current Medications Medication Drug Class(es) Dates Sig (Normalized) Sig (Original) amoxicillin 875 mg / clavulanate 125 mg oral tablet (3 sources) Penicillin-class Antibacterial Start: 10-21-2022 take 1 tablet by mouth every twelve hours Amoxicillin-Pot Clavulanate 875-125 MG 1 tablet Orally every 12 hrs for 10 day(s) Sep, Active atomoxetine 18 mg oral capsule (5 sources) Norepinephrine Reuptake Inhibitor take 1 capsule by mouth once daily Strattera 18 MG capsule Take 18 mg by mouth Daily Active cariprazine 4.5 mg oral capsule (3 sources) Atypical Antipsychotic Start: 08-31-2024 take 1 capsule by mouth once daily Cariprazine (Vraylar) 4.5 mg capsule Active 4.5 MG PO Daily August 31, 2024 12:00am cefdinir 300 mg oral capsule (1 source) Cephalosporin Antibacterial Start: 10-28-2023 Cefdinir 300 MG as directed Orally bid for 7 days Oct, Active cephalexin 500 mg oral capsule (2 sources) Cephalosporin Antibacterial Start: 07-13-2024 End: 07-23-2024 take 1 capsule by mouth in the morning, then take 1 capsule by mouth in the evening, then take 1 capsule by mouth at bedtime cephalexin (Keflex) 500 MG capsule Indications: Paronychia of great toe of right foot Take 1 capsule (500 mg) by mouth in the morning and 1 capsule (500 mg) in the evening and 1 capsule (500 mg) before bedtime. Do all this for 10 days. 30 capsule 07/13/2024 07/23/2024 Active dexamethasone 1 mg oral tablet (2 sources) Corticosteroid Start: 10-22-2024 take 1 tablet by mouth once dexAMETHasone (Decadron) 1 MG tablet Indications: PCOS (polycystic ovarian syndrome) Take 1 tablet (1 mg) by mouth 1 (one) time for 1 dose 1 tablet 10/22/2024 Active Start: 10-22-2024 take 1 tablet by mouth once de xAMETHasone (Decadron) 1 MG tablet Indications: PCOS (polycystic ovarian syndrome) Take 1 tablet (1 mg) by mouth 1 (one) time for 1 dose 1 tablet 10/22/2024 Active escitalopram 10 mg oral tablet (13 sources) Serotonin Reuptake Inhibitor Start: 08-31-2024 take 1 tablet by mouth once daily Escitalopram Oxalate (Lexapro) 10 mg tablet Active 10 MG PO Daily August 31, 2024 12:00am famotidine 40 mg oral tablet (1 source) Histamine-2 Receptor Antagonist Start: 10-30-2024 take 1 tablet by mouth once daily Famotidine 40 mg tablet Active 40 MG PO Daily October 30, 2024 12:00am ibuprofen 800 mg oral tablet (4 sources) [...] at Discharge) lamoTRIgine 150 mg oral tablet (19 sources) Mood Stabilizer, Anti-epileptic Agent Start: 11-24-2023 take 1 tablet by mouth once daily Lamotrigine 150 mg tablet Active 150 MG PO Daily November 24, 2023 12:00am Start: 04-17-2022 End: 11-24-2023 take 1 tablet by mouth once daily Lamotrigine 100 mg tablet Discontinued 100 MG PO Daily April 16, 2022 11:00pm November 24, 2023 8:32am levothyroxine sodium 0.05 mg oral tablet (20 sources) l-Thyroxine Start: 12-30-2023 End: 03-30-2024 take 1 tablet by mouth once daily Levothyroxine 50 mcg tablet Active 0 .ROUTE .COMPLEX March 30, 2024 2:55pm TAKE 1 TABLET BY MOUTH EVERY DAY Start: 04-17-2022 End: 12-30-2023 take 1 tablet by mouth once daily Levothyroxine 50 mcg tablet Discontinued 50 MCG PO Daily April 16, 2022 11:00pm December 30, 2023 9:47pm take 1 tablet by [place] once daily Levothyroxine Sodium 50 MCG TAKE 1 TABLET BY MOUTH EVERY DAY Active metFORMIN hydrochloride 500 mg oral tablet (2 sources) Biguanide Start: 10-22-2024 End: 04-20-2025 take 1 tablet by mouth in the morning metFORMIN (Glucophage) 500 MG tablet Indications: PCOS (polycystic ovarian syndrome) Take 1 tablet (500 mg) by mouth in the morning and 1 tablet (500 mg) in the evening. Take with meals. 180 tablet 1 10/22/2024 04/20/2025 Active pantoprazole 40 mg delayed release oral tablet (1 source) Proton Pump Inhibitor Start: 10-30-2024 take 1 tablet by mouth once daily Pantoprazole 40 mg tablet,delayed release (DR/EC) Active 40 MG PO Daily October 30, 2024 12:00am rimegepant 75 mg disintegrating oral tablet (5 sources) Rimegepant Sulfate (Nurtec) 75 MG tablet dispersible 1 tablet orally as needed (prn) Active sertraline 25 mg oral tablet (2 sources) Serotonin Reuptake Inhibitor Start: 07-11-2020 take 1 tablet by mouth once daily sertraline (ZOLOFT) 25 MG tablet Take 25 mg by mouth daily . 0 07/11/2020 Active temazepam 30 mg oral capsule (3 sources) Benzodiazepine Start: 09-24-2024 Temazepam 30 mg capsule Active 30 MG PO September 24, 2024 12:00am temazepam (Promise ril) 7.5 MG capsule Take 7.5 mg by mouth as needed at bedtime for sleep Active tiZANidine 4 mg oral tablet (5 sources) Central alpha-2 Adrenergic Agonist tiZANidine (Zanaflex) 4 MG tablet 1 tablet Active traMADol hydrochloride 50 mg oral tablet (2 sources) Opioid Agonist Start: 0 End: 0 take 1 tablet by mouth every four [...] sodium chloride (NS) 0.9% 50 mL MBP dextromethorphan hydrobromide 30 mg / pyrilamine maleate 30 mg oral tablet (1 source) Uncompetitive V-dduylk-R-aspartate Receptor Antagonist, Sigma-1 Agonist Start: 09-24-2024 End: 10-30-2024 take 1 tablet by mouth every six hours as needed Pyrilamine-Dextromethorphan (Fenton Dmt) 30-30 mg tablet Discontinued 1 TAB PO Every 6 hours as needed for cold symptoms September 24, 2024 12:00am October 30, 2024 3:44pm 2 ml dicyclomine hydrochloride 10 mg/ml injection (1 source) Anticholinergic Start: 08-06-2020 End: 08-06-2020 dicyclomine (BENTYL) injection 20 mg 0.4 ml enoxaparin sodium 100 mg/ml prefilled syringe (1 source) Low Molecular Weight Heparin Start: 08-07-2020 End: 08-07-2020 inject 40 mg by subcutan eous injectio n once daily 40 mg, Subcutaneous, Daily, First [...] physician if patient refuses. Indication: VTE Prophylaxis Norgestimate-Ethinyl Estradiol (17 sources) Progestin, Estrogen Start: 11-24-2023 End: 08-31-2024 take 1 tablet by mouth once daily Norgestimate-Ethinyl Estradiol (Sprintec (28)) 0.25-35 mg-mcg tablet Discontinued 1 TAB PO Daily November 24, 2023 12:00am August 31, 2024 2:43pm Start: 11-24-2023 take 1 tablet by [place] th once daily Norgestimate-Ethinyl Estradiol (Sprintec (28)) 0.25-35 mg-mcg tablet Active 1 TAB PO Daily November 24, 2023 1:00am Start: 05-25-2023 take 1 tablet by [place] th once daily norgestimate-ethinyl estradiol (Sprintec 28) 0.25-35 MG-MCG tablet Indications: Encounter for surveillance of contraceptive pills Take 1 tablet by mouth 1 (one) time each day at the same time. 84 tablet 3 05/25/2023 Active Start: 06-18-2020 take 1 tablet by [place] th once daily Estarylla 0.25-35 mg-mcg per tablet Take 1 tablet by mouth daily . 0 06/18/2020 Active Start: 06-18-2020 Estarylla 0.25 -35 mg-mcg per tablet take 1 tablet by [place] every twenty-four hours Sprintec 28 0.25-35 MG-MCG 1 tablet Orally Once a day Active FLUoxetine 10 mg oral capsule (7 sources) Serotonin Reuptake Inhibitor Start: 11-24-2023 End: 08-31-2024 take 1 capsule by mouth once daily Fluoxetine (Prozac) 10 mg capsule Discontinued 10 MG PO Daily November 24, 2023 12:00am August 31, 2024 2:43pm take 1 capsule by mo [facility] every twenty-four hours PROzac 10 MG 1 tablet once a day Active fluticasone propionate 0.05 mg/actuat metered dose nasal spray (5 sources) Corticosteroid Start: 11-24-2023 End: 03-14-2024 Fluticasone Propionate 50 mcg/actuation spray,suspension Discontinued 1 SPRAY INTRANASAL Daily as needed November 24, 2023 12:00am March 14, 2024 7:59pm Start: 08-24-2023 take 1 spray(s) nasa l [...] 0.1 mg ondansetron 4 mg oral tablet (5 sources) Serotonin-3 Receptor Antagonist Start: 04-17-2022 End: 11-24-2023 take 1 tablet by mouth every eight hours as needed for nausea and vomiting Ondansetron Hcl 4 mg tablet Discontinued 4 MG PO Q8H as needed for nausea and vomiting 12 4 April 16, 2022 11:00pm November 24, 2023 8:33am Start: 08-06-2020 End: 08-06-2020 ondansetron (ZOFRAN) injecti [...] or patient requires dose reduction, call physician. QUEtiapine 25 mg oral tablet (12 sources) Atypical Antipsychotic Start: 11-24-2023 End: 09-24-2024 take 3 tablets by mouth once daily Quetiapine 25 mg tablet Discontinued 75 MG PO Daily November 24, 2023 12:00am September 24, 2024 9:30am Start: 11-24-2023 take 75 mg by mouth once daily Quetiapine Active 75 MG PO Daily November 24, 2023 1:00am take 1 tablet by [place] th at bedtime QUEtiapine (SEROquel) 50 MG tablet Take 1 tablet by mouth at bedtime. Active QUEtiapine Fumar ate 25 MG 1 tablet & 1 50 mg. tablet once a day for the 75 mg. Active Sodium Chloride (2 sources) Start: 08-07-2020 End: 08-07-2020 sodium chloride (PF) (NS) fl ush 5 mL Start: 08-06-2020 End: 08-06-2020 sodium chloride 0.9% (NS) doris fozia 1,000 mL sodium chloride (PF) (NS) 0. 9 % contrast line flush 10 mL (1 source) Start: 08-06-2020 End: 08-07-2020 sodium chloride (PF) (NS) 0. 9 % contrast line flush 10 mL Problems Active Problems Problem Classification Problem Date Documented Date Episodic/Chronic Administrative/socia l admission (2 sources) Patient encounter status; Translations: [Dietary counseling and surveillance] 10-22-2024 Episodic Anxiety disorders (20 sources) Anxiety; Translations: [Anxiety disorder, unspecified] 11-24-2023 Chronic Appendicitis and other appendiceal conditions (4 sources) Appendicitis; Translations: [Disorder of appendix] Onset: 08-06-2020 08-06-2020 Episodic Esophageal disorders (2 sources) Gastroesophageal reflux disease; Translations: [Gastro-esophageal reflux disease without esophagitis] 10-30-2024 Chronic Headache; including migraine (14 sources) Migraine; Translations: [Migraine, unspecified, not intractable, without status migrainosus] 11-24-2023 Chronic Headache; including migraine (14 sources) Headache; Translations: [Headache] 04-17-2022 Episodic Comment on above: Problem List clean-u p per request of Phys. EHR Cmte Malaise and fatigue (2 sources) Fatigue; Translations: [Other fatigue] 09-05-2024 Episodic Mood disorders (4 sources) Bipolar disorder, current episode manic without psychotic features, moderate; Translations: [BIPOLAR CURRNT MANIC W/O PSYCH MOD] Onset: 12-20-2022 Chronic Nausea and vomiting (4 sources) Nausea and vomiting; Translations: [Nausea with vomiting, unspecified] 04-17-2022 Episodic Comment on above: Problem List clean-u p per request of Phys. EHR Cmte Nutritional deficiencies (2 sources) Vitamin D deficiency; Translations: [Vitamin D deficiency, unspecified] 10-22-2024 Chronic Open wounds of extremities (4 sources) Laceration of thumb; Translations: [Laceration without foreign body of unspecified thumb without damage to nail, initial encounter] Onset: 03-15-2024 03-14-2024 Episodic Other aftercare (2 sources) Postoperative visit; Translations: [Encounter for other specified surgical aftercare] 03-15-2024 Episodic Other endocrine disorders (2 sources) Polycystic ovary syndrome; Translations: [Polycystic ovarian syndrome] 10-22-2024 Chronic Other lower respiratory disease (4 sources) Dyspnea; Translations: [Shortness of breath] 04-17-2022 Episodic Comment on above: Problem List clean-u p per request of Phys. EHR Cmte Other nutritional; endocrine; and metabolic disorders (3 sources) Obese class I; Translations: [Body mass index (BMI) 34.0-34.9, adult] Chronic Other nutritional; endocrine; and metabolic disorders (1 source) Body mass index (BMI) 34.0-34.9, adult; Translations: [Body mass index (BMI) 34.0-34.9, adult] Chronic Other nutritional; endocrine; and metabolic disorders (2 sources) Obesity caused by energy imbalance; Translations: [Class 2 obesity due to excess calories without serious comorbidity with body mass index (BMI) of 39.0 to 39.9 in adult] 10-22-2024 Chronic Other upper respiratory infections (12 sources) Bacterial sinusitis; Translations: [Chronic sinusitis, unspecified] Chronic Other upper respiratory infections (12 sources) Acute upper respiratory infection, unspecified; Translations: [Acute pharyngitis, unspecified] Onset: 02-04-2014 Episodic Skin and subcutaneous tissue infections (2 sources) Paronychia of toe of right foot; Translations: [Cellulitis of right toe] 07-13-2024 Episodic Syncope (1 source) Syncope and collapse Episodic Thyroid disorders (20 sources) Hypothyroidism; Translations: [Hypothyroidism, unspecified] Onset: 06-09-2022 Chronic Comment on above: Problem List clean-u p per request of Phys. EHR Cmte Viral infection (4 sources) Viral disease; Translations: [Viral infection, unspecified] 04-17-2022 Episodic Comment on above: Problem List clean-u p per request of Phys. EHR Cmte Past or Other Problems Problem Classification Problem [...] 11-09-2016 Episodic Other aftercare (1 source) Other long term acute care registered nurse (current) drug therapy; Translations: [OTH INSULATION TECHNICIAN CURRENT DRUG THERAPY] Onset: 08-03-2022 Episodic Other aftercare (1 source) terminal clerk (current) use of hormonal contraceptives; Translations: [INSULATION TECHNICIAN HORMONAL CONTRACEPTIVES] Onset: 08-03-2022 Episodic Other non-traumatic joint disorders (3 sources) Pain in right ankle and joints of right foot; Translations: [PAIN IN RIGHT ANKLE] Onset: 07-31-2022 Episodic Other skin disorders (5 sources) Acne vulgaris; Translations: [Acne vulgaris] Onset: 12-18-2013 11-24-2023 Episodic Other skin disorders (5 sources) Hirsutism; Translations: [Hirsutism] Onset: 11-18-2016 11-24-2023 [...] Range Facility Basophils Auto (Bld) [#/Vol] on 08-31-2024 Basophils (Bld) [#/Vol] Automated basophil count 0.0-0.1 [facility] Basophils/100 WBC Auto (Bld) on 08-31-2024 Basophils/100 WBC (Bld) Automated basophil % 0.2-2.0 [facility] Eosinophils/100 WBC Auto (Bl d)on 08-31-2024 Eosinophils/100 WBC (Bld) Automated eosinophil % 0.9-7.0 [facility] Erythrocyte distribution wid th Auto (RBC) [Ratio]on 08-31-2024 Erythrocyte distribution width (RBC) [Ratio] Erythrocyte distribution width [Ratio] by Automated count 11.0-15.0 [facility] Estimated glomerular filtrat ion rate (GFR) non- Americanon 08-31-2024 GFR/1.73 sq M.predicted among non-blacks MDRD (S/P/Bld) [Vol rate/Area] Estimated glomerular filtration rate (GFR) non- >=60 mL/min/1.73m 2 [facility] Hematocrit Auto (Bld) [Volum e fraction]on 08-31-2024 Hematocrit (Bld) [Volume fraction] Hematocrit [Volume Fraction] of Blood by Automated count 36.0-48.0 [facility] Hemoglobin [Mass/volume] in Bloodon 08-31-2024 Hemoglobin (Bld) [Mass/Vol] Hemoglobin [Mass/volume] in Blood 12.0-16.0 [facility] Laboratory - Chemistry and C hemistry - challengeon 08-31-2024 Calcium [Mass/Vol] 8.7 mg/dL 8.5-10.1 [facility] Chloride [Moles/Vol] 106 mmol/L 98-107 [facility] CO2 [Moles/Vol] 26.1 mmol/L 21.0-32.0 [facility] Creatinine [Mass/Vol] 0.93 mg/dL 0.55-1.02 [facility] Free T4 [Mass/Vol] 0.84 ng/dL 0.76-1.46 [facility] GFR/1.73 sq M.predicted MDRD (S/P/Bld) [Vol rate/Area] mL/min/{1.73_m2} >=60 mL/min/1.73m 2 [facility] Glucose [Mass/Vol] 93 mg/dL 74-106 [facility] Potassium [Moles/Vol] 3.8 mmol/L 3.5-5.1 [facility] Sodium [Moles/Vol] 140 mmol/L 136-145 [facility] TSH Qn 1.434 m[IU]/L 0.358-3.740 [facility] Urea nitrogen [Mass/Vol] 12.0 mg/dL 7.0-18.0 [facility] Urea nitrogen/Creatinine [Mass ratio] 12.9 mg/mg [facility] Laboratory - Hematology and Cell countson 08-31-2024 Immature granulocytes/100 WBC (Bld) 0.2 % 0.0-0.5 [facility] Leukocytes [#/volume] correc jose for nucleated erythrocytes in Blood by Automated counon 08-31-2024 WBC corrected for nucl RBC Auto (Bld) [#/Vol] Leukocytes [#/volume] corrected for nucleated erythrocytes in Blood by Automated coun High 4.0-11.0 [facility] Lymphocytes Auto (Bld) [#/Vo l]on 08-31-2024 Lymphocytes (Bld) [#/Vol] Lymphocytes [#/volume] in Blood by Automated count 1.2-3.8 [facility] Lymphocytes/100 WBC Auto (Bl d)on 08-31-2024 Lymphocytes/100 WBC (Bld) Lymphocytes/100 leukocytes in Blood by Automated count 20.5-60.0 [facility] MCH Auto (RBC) [Entitic mass ]on 08-31-2024 MCH (RBC) [Entitic mass] MCH [Entitic mass] by Automated count 26.7-34.0 [facility] MCHC Auto (RBC) [Mass/Vol]on 08-31-2024 MCHC (RBC) [Mass/Vol] MCHC [Mass/volume] by Automated count 29.9-35.2 [facility] MCV Auto (RBC) [Entitic vol] on 08-31-2024 MCV (RBC) [Entitic vol] MCV [Entitic volume] by Automated count 81.0-99.0 [facility] Monocytes Auto (Bld) [#/Vol] on 08-31-2024 Monocytes (Bld) [#/Vol] Automated blood monocyte count High 0.3-0.8 [facility] Monocytes/100 WBC Auto (Bld) on 08-31-2024 Monocytes/100 WBC (Bld) Automated monocyte % 1.7-12.0 [facility] Neutrophils Auto (Bld) [#/Vo l]on 08-31-2024 Neutrophils (Bld) [#/Vol] Neutrophils [#/volume] in Blood by Automated count High 1.4-6.5 [facility] Neutrophils/100 WBC Auto (Bl d)on 08-31-2024 Neutrophils/100 WBC (Bld) Automated neutrophil % 43.0-75.0 [facility] No Panel Informationon 08-31 Eosinophils # (Auto) 0.2 10 3/uL 0.0-0.7 [facility] Immature Granulocyte # (Auto) 0.02 10 3/uL 0.00-0.03 [facility] Platelet mean volume Auto (B ld) [Entitic vol]on 08-31-2024 Platelet mean volume (Bld) [Entitic vol] Platelet mean volume [Entitic volume] in Blood by Automated count Low 9.5-13.5 [facility] Platelets Auto (Bld) [#/Vol] on 08-31-2024 Platelets (Bld) [#/Vol] Platelets [#/volume] in Blood by Automated count 150-450 [facility] RBC Auto (Bld) [#/Vol]on RBC (Bld) [#/Vol] Erythrocytes [#/volume] in Blood by Automated count 4.20-5.40 [facility] Serum or plasma anion gap de terminationon 08-31-2024 Anion gap [Moles/Vol] Serum or plasma anion gap determination [facility] Basophils Auto (Bld) [#/Vol] on 01-11-2024 Basophils (Bld) [#/Vol] 0.1 10 3/uL 0.0-0.1 [facility] Basophils/100 WBC Auto (Bld) on 01-11-2024 Basophils/100 WBC (Bld) 0.6 % 0.2-2.0 [facility] Eosinophils/100 WBC Auto (Bl d)on 01-11-2024 Eosinophils/100 WBC (Bld) 2.1 % 0.9-7.0 [facility] Erythrocyte distribution wid th Auto (RBC) [Ratio]on 01-11-2024 Erythrocyte distribution width (RBC) [Ratio] 13.2 % 11.0-15.0 [facility] Estimated glomerular filtrat ion rate (GFR) non- Americanon 01-11-2024 GFR/1.73 sq M.predicted among non-blacks MDRD (S/P/Bld) [Vol rate/Area] mL/min/{1.73_m2} >=60 [facility] Globulin Calc (S) [Mass/Vol] on 01-11-2024 Globulin (S) [Mass/Vol] 4.0 g/dL [facility] Hematocrit Auto (Bld) [Volum e fraction]on 01-11-2024 Hematocrit (Bld) [Volume fraction] 39.6 % 36.0-48.0 [facility] Hemoglobin [Mass/volume] in Bloodon 01-11-2024 Hemoglobin (Bld) [Mass/Vol] 13.1 g/dL 12.0-16.0 [facility] Laboratory - Chemistry and C hemistry - challengeon 01-11-2024 Albumin [Mass/Vol] 3.5 g/dL 3.4-5.0 [facility] ALP [Catalytic activity/Vol] 70 U/L 46-116 [facility] ALT [Catalytic activity/Vol] 35 U/L 14-59 [facility] AST [Catalytic activity/Vol] 24 U/L 15-37 [facility] Bilirubin [Mass/Vol] 0.2 mg/dL 0.2-1.0 [facility] Calcium [Mass/Vol] 9.2 mg/dL 8.5-10.1 [facility] Chloride [Moles/Vol] 101 mmol/L 98-107 [facility] CO2 [Moles/Vol] 27.9 mmol/L 21.0-32.0 [facility] Cobalamin (Vitamin B12) [Mass/Vol] 218.0 pg/mL 193.0-986.0 [facility] Creatinine [Mass/Vol] 0.88 mg/dL 0.55-1.02 [facility] Free T4 [Mass/Vol] 0.91 ng/dL 0.76-1.46 [facility] GFR/1.73 sq M.predicted MDRD (S/P/Bld) [Vol rate/Area] mL/min/{1.73_m2} >=60 [facility] Glucose [Mass/Vol] 90 mg/dL 74-106 [facility] Potassium [Moles/Vol] 3.8 mmol/L 3.5-5.1 [facility] Protein [Mass/Vol] 7.5 g/dL 6.4-8.2 [facility] Sodium [Moles/Vol] 138 mmol/L 136-145 [facility] TSH Qn 1.854 m[IU]/L 0.358-3.740 [facility] Urea nitrogen [Mass/Vol] 13.0 mg/dL 7.0-18.0 [facility] Urea nitrogen/Creatinine [Mass ratio] 14.8 mg/mg [facility] Laboratory - Hematology and Cell countson 01-11-2024 Immature granulocytes/100 WBC (Bld) 0.3 % 0.0-0.5 [facility] Leukocytes [#/volume] correc jose for nucleated erythrocytes in Blood by Automated counon 01-11-2024 WBC corrected for nucl RBC Auto (Bld) [#/Vol] 9.7 10 3/uL 4.0-11.0 [facility] Lymphocytes Auto (Bld) [#/Vo l]on 01-11-2024 Lymphocytes (Bld) [#/Vol] 2.5 10 3/uL 1.2-3.8 [facility] Lymphocytes/100 WBC Auto (Bl d)on 01-11-2024 Lymphocytes/100 WBC (Bld) 25.8 % 20.5-60.0 [facility] MCH Auto (RBC) [Entitic mass ]on 01-11-2024 MCH (RBC) [Entitic mass] 28.5 pg 26.7-34.0 [facility] MCHC Auto (RBC) [Mass/Vol]on 01-11-2024 MCHC (RBC) [Mass/Vol] 33.1 g/dL 29.9-35.2 [facility] MCV Auto (RBC) [Entitic vol] on 01-11-2024 MCV (RBC) [Entitic vol] 86.1 fL 81.0-99.0 [facility] Monocytes Auto (Bld) [#/Vol] on 01-11-2024 Monocytes (Bld) [#/Vol] 0.8 10 3/uL 0.3-0.8 [facility] Monocytes/100 WBC Auto (Bld) on 01-11-2024 Monocytes/100 WBC (Bld) 8.6 % 1.7-12.0 [facility] Neutrophils Auto (Bld) [#/Vo l]on 01-11-2024 Neutrophils (Bld) [#/Vol] 6.1 10 3/uL 1.4-6.5 [facility] Neutrophils/100 WBC Auto (Bl d)on 01-11-2024 Neutrophils/100 WBC (Bld) 62.6 % 43.0-75.0 [facility] No Panel Informationon 01-10 25-Hydroxy Vitamin D Total 37.6 ng/mL [facility] Comment on above: <20 ng/mL Vit D defi cient20-<30 ng/mL Vit D rjocdpqvvgde73-176 ng/mL Vit D sufficient>100 ng/mL Potential Toxicity Eosinophils # (Auto) 0.2 10 3/uL 0.0-0.7 [facility] Immature Granulocyte # (Auto) 0.03 10 3/uL 0.00-0.03 [facility] Platelet mean volume Auto (B ld) [Entitic vol]on 01-11-2024 Platelet mean volume (Bld) [Entitic vol] 8.8 fL 9.5-13.5 [facility] Platelets Auto (Bld) [#/Vol] on 01-11-2024 Platelets (Bld) [#/Vol] 326 10 3/uL 150-450 [facility] RBC Auto (Bld) [#/Vol]on RBC (Bld) [#/Vol] 4.60 10 6/uL 4.20-5.40 [facility] Serum or plasma albumin/glob ulin mass ratioon 01-11-2024 Albumin/Globulin [Mass ratio] 0.9 {ratio} [facility] Serum or plasma anion gap de terminationon 01-11-2024 Anion gap [Moles/Vol] 12.9 mmol/L [facility] Noteon Physical Therapy Note [id number]#1.00OTGTIFF [facility] Coding Summaryon 09-14-2023 [facility] BqzlkqatBTx2fDw+PG hlYWQ+BT6EKKDoV72t aOSxfD1uM5FXUHtIPo wgQVBQTElOSyIgbmFt MA5ivWIgEZZr IC8+CI1uPUFfRiarcG Vja9V8fXM9A05njh5i GFxxcKI2WXVoMfIrzi fnn4axnRd0OKlvVwwc OyBt PECkfO15ICX5gE57Nz 84wWEgqLArx7oifIf2 YrPnCKWkPUZ4oNdxQQ tho4XvTOVyJ16qaMZk c2U6 IGNvbGxhcHNlOyBlbX U2hN7qRZlflyqil6xd frlrCga9fi64pMPgp5 J8sXW7H6FmlzR7XMFd bGQg SpmmhPDTsA1sevbah8 xvcjogIzAwMDAwMDt0 BRx6OPDpwAmnYnNyWI 81EAT2UQTctoYuG5Gm LWFs pRayVvD2r0R3Bi5IS6 EEUztfS8KKTJJSGLle dGQ+ZU08xn13A0QxYi heEiv9GSBsBAQ5eBN2 aD0n NHKrTDmmh7X3bEH6O7 UzjtQsoh1ht9clBUMt XBvkR28deZZsl5N0ZT QubNC1TPQatObuCrUx aG93 Oyc+NRKuwIukt2BvNq djx3hjv4gfcQg1Fnmr VZFgmzFgpQxmSAY8v0 FaPq4kQDHzuEP1tEJ4 aD0i DjIySoZ2CGtmY963Mr AgzRIyGlteB56vU3Iu dXA+GAKdOst8FMKpeJ rvVW6yF6MjYTUksyjv bGVm zKywIE5iBDTfystaOX TtwP5mQLXmN8d7NmXn AkW8UNauA6YiLBWueq vjDs52cH6aOhMlQnX4 MGlu J5IdmyI5EZYyoQKfQN leKRD3X94ne3F1ZPQc RAEpWKL9lOM5xT3hpW lnbjogbGVmdDsgdmVy dGlj AVeqMRvhW948VLHpaQ snPkNvZGluZyBEYXRl OiAgMTIvMjAvMjAyMz wvdGQ+KAVuPSF7hJjh PSAn mFFmZPymIg2jvQlmbZ vuZM0xBEPasoyxBEJt rS9gTREwqGEppIemSP 0tGXAprzdbp699TzCb MHB0 ZSLhsADlX8OkfM9eOt RbRLOjEXWkV7PqnDFm IMwpM741PPcwLfW0XB BpkqSwU1FiWSPwhVsu OiB0 a7M4Yg6Dv3GotwifJ8 RhdHVzOiAgRmluYWw8 N0VxQtdljTY+PC90YW YjSJ90EBh1DYU0wXsg PSdi YNJlJ7HusL2qWbRsHR RkZGRkOyc+PHRhYmxl IHdpZHRoPScxMDAlJy LcfSklQZ4fFf2pUOEe LWNv lWjvqVYuGcKno8byAQ ChCUjmUI9lkEfoK4Qd tGB1NULsq2o8Kf25H9 4zE2AcaJF+PGNvbCB3 aWR0 yU4vNzShKyJ8RZnnG7 65XyCpnBTjWmrae2hn n1laxNw2XeK9SNVdlw XzzZkqNAO2j0DyGk20 Y29s IHdpZHRoPSIxNSUiIH VozIskcr6rmC1mDz6+ OUYiyDQ7yYO9nU0pCv FrQjG1QOzdG276IbWr cCIv Isgam5yez8jsbCr6Px IwJSIgdmFsaWduPSJ0 h1ViRs47F2OwiKxkt1 GsFvk2uw03bXVpy7Y0 bGU9 E2LzTKJldpqhhFLsxK pzQN1oKXVqbalvEFPu lN2dFIEwA6q6RgWkQw H9YMkpJ3QmxnS3WJVf bGQg QFIfaZSGlD6amvphz6 xvcjogIzAwMDAwMDt0 XLq7ZQIcyOobAyVzDF X5WhL5EHR7kPFlmQ0o bGln zewtjJ0qBjo+UGF0aW IyxXMRRV3cAzmdlBJ+ MYOuBSK2nTauZXdaYA DowJ6mLCCtB0x2QwBy LjA1 KLnbC9XtgkI0AFFvwT OpZCBelRRRwG9ryplc d8oyredrDqWsZIFcRP g8MFj3QNHtjCeqWyMv ZWZ0 PdX8FLI1lYZwhX2oqG heganmnY2wQcx+Qmly sJylSMF0PLb6I2HpWw x2CYIouHfeYN1paEQk ZGlu Ym3xcMbpgDxuGC3bLI Ytarvgn178RwIly2hd CCQmiVPkAVrjFRX8M5 9tn5C5TQPlDTUzZYU8 dGV4 hR0kfLrrewfzgKUeiK sgdmVydGljYWwtYWxp R708PNPvmTjhRxDaHI j8W8HrAtl7UYNzcJvn ZT0n sKLoIBtpQd6fpHzkoY hgUF5zDUFdbczcq823 CpEww5fePZUxjYZiUH sfOOQ7T02gb3H4WSCx MDAw LTC4tSO8vE9rkEnycj ogbGVmdDsgdmVydGlj TOlzIWtmY375IUOchF obJfNytMk0P8MeWkt8 ZCBz bStwRZ1qlOYcZPwrAz 0elAdlwKrqFI7bWZGf clliw622IkDey3wwAQ SckRPiLJlzVHB4P60l b3I6 CVMhDOLjXWH1qHG6vA 1hbGlnbjogbGVmdDsg dmVydGljYWwtYWxpZ2 46IHRvcDsnPlBhdGll bnQg BXbgCPw1K2YfBvexuO I+MC57WMAcMQ27gFVd jLPvr0nmjXm6AgCoJR IpILH1iDqtPOlmz0Na ZXIt Q82jkGTdn3J8BVJicE gpzQBeBoCgkHQ1yP1i EAiymzkvo2kkzqrpLj egp3izbi59nO91C62g IHdp ZHRoPSIzMCUiIHZhbG emae7idA3xCe1+PGNv iNY7fRK4wB5sSYCfRw K9MDhzG281PyEycVCi Pjxj e4fmp7chnKa9ZeU4VQ RtqcThuJmtHFX0t3Pz Kc35F97jUGcsHPSyCP YrYDStKPObjVveel5n dG9w Ii8+YLSnbGR2aZD3rQ 4rAsHwQwR2TYhqL943 GeBhmKGbRvtgL50wA3 JvdXA+MJTvPnp4REVr dHls AJ8hcMNaQQdhMl1gLK Q1PdRkTqVdAGjbN0Ol PTNzscqvkvevfIH7ZK SbJNFawC61Ti0gqHxo MTBw cJJSbV4xhvmte3qpwh nxZxHjQZWyHLu1WRa1 GJSbpNasJtWvVJB8Ot C1JEE8bAEfbA5rsOyf bjog hL7iT1RzRNGcbzmjRq 32gY9gSfJaAzT9MYwk Oyc+I5TJEAGNYIBYVJ 1AYC3TX95AYGixmWZ+ PHRk XXQ3yWjqBQwmQBSalD 7uIMPvE4u7LgWyFzH3 EHtsR4VvZXHkiukoPv 10rC0xZdCqUrX2WYym O2Zv maA6AFJtxAWrQYugVT O2L40wq2G6JKRlLBSu HVJ3cTV2qX5bjWojah ogbGVmdDsgdmVydGlj YWwt SHhkK912UTRjxQcfYj X6AzVvAoN5WNg9Z8Nt Cdl7YSIzzUqjVM9ycG JcFMjxJz2wwKwjwKjj MC4w FJFssliqLIRbyT7oJC GfqPVwcVvbWF4uFZDn gftog140YgIwGRI6VH DpcLKoW1WkfB3hKwSe MDAw AAGlR0ZhkTEpZLslN0 06OYagLrF3KJDgcnGj M8PvKRFsqGbvHoG4n5 L4Ax1fEGCEKMUnkitv dGQ+ JOCpLHO0gXprLThlVB GpwD6cTSNiX6y6XeTj XvC6KQqtZ0BdBOSmqy hpGt53hF8uXgPaOdK3 MGlu P6LjucQ2NWLtbYSxLD zzZUS2A27xi4K7LAMt VVYkVAX3vKF2fY6ynV lnbjogbGVmdDsgdmVy dGlj HKzcCLvxI355LCKlnB snPkZFTUFMRTwvdGQ+ VGTzWVC9qIukIEwnTP FegT7uNGOrP4b9MmFa LjA1 USvbD3MhHEJmtwngCi 03vW3wZbYsIgB0KSym F0RewlP7MJGegBApJT bbRKA0S51cb5E6RGPi MDAw BBI1rMV3iT4vyKflxo ogbGVmdDsgdmVydGlj UVnwWRuoN106XAComO mnHjZhH3ObwgfcLmQA dXRw IZCaUD77TR93TF00D6 RyPjwvdGFibGU+PHRh YmxlIHdpZHRoPScxMD CpLvYnpLghAU0oTa4g ZGVy LWNvbGxhcHNlOiBjb2 crMYJfYIwbSR7rfKdq J2UqpJZ8XWPki9w8Ne 53L49bK6CavTZ+PGNv bCB3 xWJ1tF7zWbWuZvQ4SZ ueD458ZwShrJWpIuso y4kst4hwjWz2IuLeED ZhumPseQvlRJW6t4Tl Lz48 P76aHBrlGSAmILGtUB OpIXMvpQgglw5afA7h Ii8+KKJyqXS4lTX6gL 8bXwHxGqF4ABzsF200 InRv bHDrRcyeM59lY1ShyG A+CZLsTjr9XOBwsGvh DZ5sqCWySQdcPb2kIA S0WcThGiMnRVleR0Rq ZGRp kjkliprdvMS8QTNrCR KmdO52Ee8hmHfpGb3l WZRaGNK6KVOtiUKwD9 KjnZ6tJjLhNKHfOZQz O3Rl yHBrWNxaS157JRmxCf H7FTWnsnKaJ7FtDDPl oGtfNyF5z5C0Tn9FjP btbWYoKV4uEzYhUEx2 L3Rk Phl0NEZvcOqwET0wwR JuZUjwXw0crYnlpFvu EW5dSNHsfmboj372Jk Hxl1ymLUPhnQPiQWmv ZXM7 X84qz9S3CSYmXHBqBO U9jTS6jU7vjGjufuqd bGVmdDsgdmVydGljYW jhBVwqT215JCSbiRdp PkZJ Mkz3K7MkWuc5HNEfcA gfGB0bgZNxBRpqVo8x fFmkvNnjLP6xYCRyai ugb656AoKuj0fbYLUb cHQg SKtsFXK5Q80xl4H4CX FzPTSjLXY9oSC4aW4u bGlnbjogbGVmdDsgdm WsyJpnPRliCRweJ618 IHRv kOlsFw5AXji0F0IjRe o0OURqgKbmUP8ryUHv MTzrDe6sxBcntTvgAO 3nQRYdsodjv712BfCi b2xk IUZsyUChZVleYVD3B1 6mm7T2RPFrKZCxMSH8 vFI0jQ7qzUdbxudujE VmdDsgdmVydGljYWwt YWxp A689DMMwuUrjTiXrpS VyOjwvdGQ+EH78hb11 T0LlDewfMbc4QXEpJI W5tSP5iV9pMSGcVYbx c3R5 bGU (more content not included)... [facility] Provider Orderson 08-24-2023 Provider Orders [id number]#1.00OTGTIFF [facility] SARS-CoV-2 (COVID-19) RNA NA A+probe Ql (Resp)on 08-24-2023 SARS-CoV-2 (COVID-19) RNA NIRANJAN+probe Ql (Unsp spec) Positive [employer] Other CBC AUTO DIFFon 12-20-2022 BASO # 0.1 103/ul Normal 0.0-0.1 [facility] Comment on above: Performed By: #### C BC #### [facility] [address] [address] [address] Ana Leo Basophils/100 WBC (Bld) 0.6 % Normal 0.2-2.0 [facility] Comment on above: Performed By: #### C BC #### [facility] [address] [address] [address] Ana Leo EO # 0.2 103/ul Normal 0.0-0.7 [facility] Comment on above: Performed By: #### C BC #### [facility] [address] [address] [address] Ana Leo Eosinophils/100 WBC (Bld) 1.9 % Normal 0.9-7.0 [facility] Comment on above: Performed By: #### C BC #### [facility] [address] [address] [address] Ana Leo Erythrocyte distribution width (RBC) [Ratio] 12.9 % Normal 11.0-15.0 [facility] Comment on above: Performed By: #### C BC #### [facility] [address] [address] [address] Ana Leo Hematocrit (Bld) [Volume fraction] 39.4 % Normal 36.0-48.0 [facility] Comment on above: Performed By: #### C BC #### [facility] [address] [address] [address] Ana Leo Hemoglobin (Bld) [Mass/Vol] 13.2 g/dL Normal 12.0-16.0 [facility] Comment on above: Performed By: #### C BC #### [facility] [address] [place] [address] Dr. Ana Leo IG # 0.01 10e3/ul Normal 0.00-0.03 [facility] Comment on above: Performed By: #### C BC #### [facility] [address] [place] [address] Dr. Ana Leo IG % 0.1 % Normal 0.0-0.5 [facility] Comment on above: Performed By: #### C BC #### [facility] [address] [place] [address] Dr. Ana Leo LYMPH # 2.3 103/ul Normal 1.2-3.8 [facility] Comment on above: Performed By: #### C BC #### [facility] [address] [place] [address] Dr. Ana Leo Lymphocytes/100 WBC (Bld) 27.7 % Normal 20.5-60.0 [facility] Comment on above: Performed By: #### C BC #### [facility] [address] [place] [address] Dr. Ana Leo MANUAL DIFF REQ NO Normal [facility] Comment on above: Performed By: #### C BC #### [facility] [address] [place] [address] Dr. Ana Leo MCH (RBC) [Entitic mass] 28.2 pg Normal 26.7-34.0 [facility] Comment on above: Performed By: #### C BC #### [facility] [address] [place] [address] Dr. Ana Leo MCHC (RBC) [Mass/Vol] 33.5 g/dL Normal 29.9-35.2 [facility] Comment on above: Performed By: #### C BC #### [facility] [address] [place] [address] Dr. Ana Leo MCV (RBC) [Entitic vol] 84.2 fL Normal 81.0-99.0 [facility] Comment on above: Performed By: #### C BC #### [facility] [address] [place] [address] Dr. Ana Leo MONO # 0.8 103/ul Normal 0.3-0.8 [facility] Comment on above: Performed By: #### C BC #### [facility] [address] [address] [address] Ana Leo Monocytes/100 WBC (Bld) 10.0 % Normal 1.7-12.0 [facility] Comment on above: Performed By: #### C BC #### [facility] [address] [address] [address] Ana Leo NEUT # 5.0 103/ul Normal 1.4-6.5 [facility] Comment on above: Performed By: #### C BC #### [facility] [address] [place] [address] Dr. Ana Leo Neutrophils/100 WBC (Bld) 59.7 % Normal 43.0-75.0 [facility] Comment on above: Performed By: #### C BC #### [facility] [address] [place] [address] Dr. Ana Leo Platelet mean volume (Bld) [Entitic vol] 8.6 fL Critically low 9.5-13.5 [facility] Comment on above: Performed By: #### C BC #### [facility] [address] [place] [address] Dr. Ana Leo PLT 300 103/ul Normal 150-450 [facility] Comment on above: Performed By: #### C BC #### [facility] [address] [place] [address] Dr. Ana Leo RBC 4.68 106/ul Normal 4.20-5.40 [facility] Comment on above: Performed By: #### C BC #### [facility] [address] [place] [address] Dr. Ana Leo WBC 8.4 103/ul Normal 4.0-11.0 [facility] Comment on above: Performed By: #### C BC #### [facility] [address] [place] [address] Dr. Ana Leo LIPID PROFILEon 12-20-2022 CHOL-HDL RATIO NORM SEE BELOW Normal [facility] Comment on above: Result Comment: 3.3 - 4.4 LOW RISK 4.4 - 7.1 AVERAGE RISK 7.1 - 11.0 MODERATE RISK >11.0 HIGH RISK Performed By: #### C MP, TSH, LIPID ####[facility] [id number] [id number] Ana Leo Cholesterol [Mass/Vol] 173 mg/dL Normal <=200 Th [facility] Comment on above: Performed By: #### C MP, TSH, LIPID ####[facility] [id number] [id number][address] Ana Leo Cholesterol in HDL [Mass/Vol] 62 mg/dL Critically high 40-60 [facility] Comment on above: Performed By: #### C MP, TSH, LIPID ####[facility] [id number] [id number][address] Ana Leo Cholesterol in LDL [Mass/Vol] 85.0 mg/dL Normal [facility] Comment on above: Performed By: #### C MP, TSH, LIPID ####[facility] [id number] [address]Dr[address] Ana Leo Cholesterol.total/Chol esterol in HDL [Mass ratio] 2.8 {ratio} Normal [facility] Comment on above: Performed By: #### C MP, TSH, LIPID ####[facility] [id number] [id number][address] Ana Leo HDL NORMAL > or = 60 mg/dl - LOW CARDIOVASCULAR RISK <40 mg/dl - HIGH CARDIOVASCULAR RISK Normal [facility] Comment on above: Performed By: #### C MP, TSH, LIPID ####[facility] [id number] [id number][address] Avivalan Leo LDL CALC NORMAL SEE BELOW Normal [facility] Comment on above: Result Comment: <100 mg/dl OPTIMAL 100 - 129 mg/dl NEAR OR ABOVE OPTIMAL 130 - 159 mg/dl BORDERLINE HIGH 160 - 189 mg/dl HIGH >190 mg/dl VERY HIGH Performed By: #### C MP, TSH, LIPID ####[facility] [id number] [id number][address] Avivalan Leo Triglyceride [Mass/Vol] 130 mg/dL Normal <=150 [facility] Comment on above: Performed By: #### C MP, TSH, LIPID ####[facility] [id number] [place], [place] [address]JtDr. Ana Leo VLDL CALC 26.0 mg/dL Normal [facility] Comment on above: Performed By: #### C MP, TSH, LIPID ####[facility] [id number] [place], [place] [address]DkDr. Ana Leo PROF 14(COMP METB)on 023 Albumin [Mass/Vol] 3.7 g/dL Normal 3.4-5.0 [facility] Comment on above: Performed By: #### C MP, TSH, LIPID #### [facility] [address] [address] [address] Ana Leo Albumin/Globulin [Mass ratio] 1.0 {ratio} Normal [facility] Comment on above: Performed By: #### C MP, TSH, LIPID #### [facility] [address] [address] [address] Ana Leo ALP [Catalytic activity/Vol] 99 U/L Normal 46-116 [facility] Comment on above: Performed By: #### C MP, TSH, LIPID #### [facility] [address] [place] [address] Dr. Ana Leo ALT [Catalytic activity/Vol] 42 U/L Normal 14-59 [facility] Comment on above: Performed By: #### C MP, TSH, LIPID #### [facility] [address] [address] [address] Ana Leo Anion gap [Moles/Vol] 12.6 mmol/L Normal [facility] Comment on above: Performed By: #### C MP, TSH, LIPID #### [facility] [address] [address] [address] Ana Leo AST [Catalytic activity/Vol] 24 U/L Normal 15-37 [facility] Comment on above: Performed By: #### C MP, TSH, LIPID #### [facility] [address] [address] [address] Ana Leo Bilirubin [Mass/Vol] 0.2 mg/dL Normal 0.2-1.0 [facility] Comment on above: Performed By: #### C MP, TSH, LIPID #### [facility] [address] [place] [address] Dr. Ana Leo Calcium [Mass/Vol] 8.8 mg/dL Normal 8.5-10.1 [facility] Comment on above: Performed By: #### C MP, TSH, LIPID #### [facility] [address] [place] [address] Dr. Ana Leo Chloride [Moles/Vol] 105 mmol/L Normal 98-107 [facility] Comment on above: Performed By: #### C MP, TSH, LIPID #### [facility] [address] [place] [address] Dr. Ana Leo CO2 [Moles/Vol] 27.5 mmol/L Normal 21.0-32.0 [facility] Comment on above: Performed By: #### C MP, TSH, LIPID #### [facility] [address] [place] [address] Dr. Ana Leo Creatinine [Mass/Vol] 0.77 mg/dL Normal 0.55-1.02 [facility] Comment on above: Performed By: #### C MP, TSH, LIPID #### [facility] [address] [place] [address] Dr. Ana Leo EGFR-AF MOZAMBICAN >60 Normal >=60 [facility] Comment on above: Performed By: #### C MP, TSH, LIPID #### [facility] [address] [place] [address] Dr. Ana Leo EGFR-NON AF MOZAMBICAN >60 Normal >=60 [facility] Comment on above: Performed By: #### C MP, TSH, LIPID #### [facility] [address] [place] [address] Dr. Ana Leo Globulin (S) [Mass/Vol] 3.6 g/dL Normal [facility] Comment on above: Performed By: #### C MP, TSH, LIPID #### [facility] [address] [place] [address] Dr. Ana Leo Glucose [Mass/Vol] 103 mg/dL Normal 74-106 [facility] Comment on above: Performed By: #### C MP, TSH, LIPID #### [facility] [address] [address] [address] Ana Leo Potassium [Moles/Vol] 4.1 mmol/L Normal 3.5-5.1 [facility] Comment on above: Performed By: #### C MP, TSH, LIPID #### [facility] [address] [address] [address] Ana Leo Protein [Mass/Vol] 7.3 g/dL Normal 6.4-8.2 [facility] Comment on above: Performed By: #### C MP, TSH, LIPID #### [facility] [address] [address] [address] Ana Leo Sodium [Moles/Vol] 141 mmol/L Normal 136-145 [facility] Comment on above: Performed By: #### C MP, TSH, LIPID #### [facility] [address] [address] [address] Ana Leo Urea nitrogen [Mass/Vol] 9.0 mg/dL Normal 7.0-18.0 [facility] Comment on above: Performed By: #### C MP, TSH, LIPID #### [facility] [address] [address] [address] Ana Leo Urea nitrogen/Creatinine [Mass ratio] 11.7 mg/mg Normal [facility] Comment on above: Performed By: #### C MP, TSH, LIPID #### [facility] [address] [address] [address] Ana Leo TSHon 12-20-2022 TSH 1.924 uIU/mL Normal 0.358-3.740 [facility] Comment on above: Performed By: #### C MP, TSH, LIPID ####[facility] [id number] [address]Dr. Ana Leo VITAMIN D 25 OHon 12-20-2022 VIT D 25-OH 49.3 ng/mL Normal [facility] Comment on above: Performed By: #### V ITAD #### [facility] [address] [address] [address] Ana Leo VIT D RANGES SEE BELOW Normal [facility] Comment on above: Result Comment: <20 ng/mL Vit D deficient 20 - <30 ng/mL Vit D insufficient 30 - 100 ng/mL Vit D sufficient >100 ng/mL Potential Toxicity Performed By: #### V ITAD #### [facility] [address] [place] [address] Dr. Ana Leo COVID/FLU/RSV RT-PCRon 10-20 SARS-CoV-2 (COVID-19) RNA NIRANJAN+probe Ql (Unsp spec) Negative [facility] [employer] Other COVID/FLU/RSV RT-PCR Negative [facility] [employer] Other Quick Strepon 10-20-2022 S. pyogenes Org specific cx Ql (Throat) Negative [facility] [employer] Other Quick Strep [facility] [employer] Other XR ANKLE RT MIN 3 VIEWSon [...] by: MAYO ELLIS Date: 2022-07-31 09:22 Normal [facility] FREE T4on 06-09-2022 Free T4 [Mass/Vol] 1.01 ng/dL Normal 0.76-1.46 [facility] Comment on above: Performed By: #### F T4 #### [facility] [address] [place] [address] Dr. Ana Leo TSHon 06-09-2022 TSH 1.337 uIU/mL Normal 0.358-3.740 [facility] Comment on above: Performed By: #### T SH #### [facility] [address] [place], [place] [address] Dr. nAa Leo Basophils Auto (Bld) [#/Vol] Ordered By: Jaz Farrell on 04-17-2022 Basophils (Bld) [#/Vol] 0.1 10*3/uL 0.0-0.2 [facility] Basophils/100 WBC Auto (Bld) Ordered By: Jaz Farrell on 04-17-2022 Basophils/100 WBC (Bld) 0.7 % . [facility] Bilirubin Test strip Ql (U)O rdered By: Jaz Farrell on 04-17-2022 Bilirubin Ql (U) Negative Negative [facility] Blood hemoglobin measurement (mass/volume)Ordered By: Jaz Farrell on 04-17-2022 Hemoglobin (Bld) [Mass/Vol] 13.5 g/dL 11.8-15.4 [facility] Blood leukocytes automated c ount (number/volume)Ordered By: Jaz Farrell on 04-17-2022 WBC (Bld) [#/Vol] 7.9 10*3/uL 4.5-11.0 [facility] COVID-19 SOFIAOrdered By: Fox Farrell on 04-17-2022 SARS-CoV+SARS-CoV-2 (COVID-19) Ag IA.rapid Ql (Resp) Negative Negative [facility] Comment on above: This is a duplicate [facility] SARS Antigen (HUMZA) result to be used for statistical tracking purpose only. Color Auto (U)Ordered By: Fox Farrell on 04-17-2022 Color (U) Yellow Yellow [facility] Creatinine and Glomerular fi ltration rate.predicted panel (S/P/Bld)Ordered By: Jaz Farrell on 04-17-2022 Creatinine [Mass/Vol] 0.81 mg/dL 0.44-1.03 [facility] Eosinophils Auto (Bld) [#/Vo l]Ordered By: Jaz Farrell on 04-17-2022 Eosinophils (Bld) [#/Vol] 0.3 10*3/uL 0.0-0.45 [facility] Eosinophils/100 WBC Auto (Bl d)Ordered By: Jaz Farrell on 04-17-2022 Eosinophils/100 WBC (Bld) 3.6 % . [facility] Erythrocyte distribution wid th Auto (RBC) [Ratio]Ordered By: Jaz Farrell on 04-17-2022 Erythrocyte distribution width (RBC) [Ratio] 13.3 % 11.9-15.3 [facility] Estimated glomerular filtrat ion rate (GFR) non- AmericanOrdered By: Jaz Farrell on 04-17-2022 GFR/1.73 sq M.predicted among non-blacks MDRD (S/P/Bld) [Vol rate/Area] > 60 mL/Min [facility] HCG ( test) IA.rapi d Ql (U)Ordered By: Jaz Farrell on 04-17-2022 HCG ( test) Ql (U) Negative [facility] Hematocrit Auto (Bld) [Volum e fraction]Ordered By: Jaz Farrell on 04-17-2022 Hematocrit (Bld) [Volume fraction] 40.0 % 34.0-46.4 [facility] Ketones Auto test strip (U) [Mass/Vol]Ordered By: Jaz Farrell on 04-17-2022 Ketones (U) [Mass/Vol] Negative Negative [facility] - Hematology and Cell countsOrdered By: Jaz Farrell on 04-17-2022 Nucleated RBC/100 WBC (Bld) [Ratio] 0.1 % 0-0.5 [facility] Lymphocytes Auto (Bld) [#/Vo l]Ordered By: Jaz Farrell on 04-17-2022 Lymphocytes (Bld) [#/Vol] 2.2 10*3/uL 1.00-4.8 [facility] Lymphocytes/100 WBC Auto (Bl d)Ordered By: Jaz Farrell on 04-17-2022 Lymphocytes/100 WBC (Bld) 28.1 % . [facility] MCH Auto (RBC) [Entitic mass ]Ordered By: Jaz Farrell on 04-17-2022 MCH (RBC) [Entitic mass] 28.9 pg 24.7-34.3 [facility] MCHC Auto (RBC) [Mass/Vol]Or dered By: Jaz Farrell on 04-17-2022 MCHC (RBC) [Mass/Vol] 33.7 g/dL 32.0-35.0 [facility] MCV Auto (RBC) [Entitic vol] Ordered By: Jaz Farrell on 04-17-2022 MCV (RBC) [Entitic vol] 85.9 fL 80-100 [facility] Monocytes Auto (Bld) [#/Vol] Ordered By: Jaz Farrell on 04-17-2022 Monocytes (Bld) [#/Vol] 0.7 10*3/uL 0.0-0.8 [facility] Monocytes/100 WBC Auto (Bld) Ordered By: Jaz Farrell on 04-17-2022 Monocytes/100 WBC (Bld) 9.4 % . [facility] Neutrophils Auto (Bld) [#/Vo l]Ordered By: Jaz Farrell on 04-17-2022 Neutrophils (Bld) [#/Vol] 4.6 10*3/uL 1.8-7.7 [facility] Neutrophils/100 WBC Auto (Bl d)Ordered By: Jaz Farerll on 04-17-2022 Neutrophils/100 WBC (Bld) 58.2 % . [facility] Nitrite Test strip Ql (U)Ord ered By: Jaz Farrell on 04-17-2022 Nitrite Ql (U) Negative Negative [facility] No Panel InformationOrdered By: Jaz Farrell on 04-17-2022 D-Dimer Quantitative (PE/DVT) < 200 ng/mL 0-243 [facility] Comment on above: The reference range for [...] conditions. Estimated GFR () > 60 mL/Min [facility] Comment on above: GFR estimated refere nce range: According to KDOQI guidelines, <60 ml/min/1.73m2 is sufficient to diagnose a patient with chronic kidney disease. Pharmacy Creatinine Clearance (Chem 117.87 [facility] [facility] SARS Antigen (LFIA) [facility] Platelet mean volume Auto (B ld) [Entitic vol]Ordered By: Jaz Farrell on 04-17-2022 Platelet mean volume (Bld) [Entitic vol] 7.0 fL 6.3-10.7 [facility] Platelets Auto (Bld) [#/Vol] Ordered By: Jaz Farrell on 04-17-2022 Platelets (Bld) [#/Vol] 299 10*3/uL 150-450 [facility] Protein Auto test strip (U) [Mass/Vol]Ordered By: Jaz Farrell on 04-17-2022 Protein (U) [Mass/Vol] Negative Negative [facility] RBC Auto (Bld) [#/Vol]Ordere d By: Jaz Farrell on 04-17-2022 RBC (Bld) [#/Vol] 4.66 10*6/uL 3.60-5.00 [facility] Serum or plasma calcium trupti urement (mass/volume)Ordered By: Jaz Farrell on 04-17-2022 Calcium [Mass/Vol] 9.1 mg/dL 8.2-10.2 [facility] Serum or plasma chloride nicole surement (moles/volume)Ordered By: Jaz Farrell on 04-17-2022 Chloride [Moles/Vol] 103 mmol/L 95-114 [facility] Serum or plasma glucose trupti urement (mass/volume)Ordered By: Jaz Farrell on 04-17-2022 Glucose [Mass/Vol] 92 mg/dL 70-100 [facility] Comment on above: ADA recommended refe rence range Random Glucose Reference Range is dependent on time and content of last meal. Glucose of more than 200 mg/dL in a nonstressed, ambulatory subject supports the diagnosis of Diabetes Mellitus. Serum or plasma potassium me asurement (moles/volume)Ordered By: Jaz Farrell on 04-17-2022 Potassium [Moles/Vol] 3.8 mmol/L 3.5-5.1 [facility] Serum or plasma sodium measu rement (moles/volume)Ordered By: Jaz Farrell on 04-17-2022 Sodium [Moles/Vol] 138 mmol/L 136-146 [facility] Serum or plasma total carbon dioxide measurement (moles/volume)Ordered By: Jaz Farrell on 04-17-2022 CO2 [Moles/Vol] 25.8 mmol/L 22.0-30.0 [facility] Serum or plasma urea nitroge n measurement (mass/volume)Ordered By: Jaz Farrell on 04-17-2022 Urea nitrogen [Mass/Vol] 11 mg/dL 06-18 [facility] Specific gravity Auto test s trip (U) [Rel density]Ordered By: Jaz Farrell on 04-17-2022 Specific gravity (U) [Rel density] 1.010 1.001-1.030 [facility] Troponin I.cardiac [Mass/vol ume] in Serum or Plasma by High sensitivity methodOrdered By: Jaz Farrell on 04-17-2022 Troponin I.cardiac High sensitivity method [Mass/Vol] < 3 pg/mL 0-15 [facility] Urine clarity by refractomet ry automatedOrdered By: Jaz Farrell on 04-17-2022 Clarity Refractometry automated (U) Clear Clear [facility] Urine glucose measurement by automated test strip (mass/volume)Ordered By: Jaz Farrell on 04-17-2022 Glucose Auto test strip (U) [Mass/Vol] Normal mg/dL Normal [facility] Urine hemoglobin detection b y automated test stripOrdered By: Jaz Farrell on 04-17-2022 Hemoglobin Auto test strip Ql (U) Negative Negative [facility] Urine leukocyte esterase det ection by automated test stripOrdered By: Jaz Farrell on 04-17-2022 Leukocyte esterase Auto test strip Ql (U) Negative Negative [facility] Urobilinogen Auto test strip (U) [Mass/Vol]Ordered By: Jaz Farrell on 07-23-2022 Urobilinogen (U) [Mass/Vol] Normal mg/dL Normal [facility] pH Auto test strip (U)Ordere d By: Jaz Farrell on 04-17-2022 pH (U) 6.5 [pH] 5.0-9.0 [facility] CBC AUTO DIFFon 03-03-2022 BASO # 0.1 103/ul Normal 0.0-0.1 [facility] Comment on above: Performed By: #### C BC #### [facility] [address] [address] [address] Ana Leo Basophils/100 WBC (Bld) 0.9 % Normal 0.2-2.0 [facility] Comment on above: Performed By: #### C BC #### [facility] [address] [place] [address] Dr. Ana Leo EO # 0.3 103/ul Normal 0.0-0.7 [facility] Comment on above: Performed By: #### C BC #### [facility] [address] [place] [address] Dr. Ana Leo Eosinophils/100 WBC (Bld) 4.0 % Normal 0.9-7.0 [facility] Comment on above: Performed By: #### C BC #### [facility] [address] [place] [address] Dr. Ana Leo Erythrocyte distribution width (RBC) [Ratio] 12.9 % Normal 11.0-15.0 [facility] Comment on above: Performed By: #### C BC #### [facility] [address] [place] [address] Dr. Ana Leo Hematocrit (Bld) [Volume fraction] 39.5 % Normal 36.0-48.0 [facility] Comment on above: Performed By: #### C BC #### [facility] [address] [place] [address] Dr. Ana Leo Hemoglobin (Bld) [Mass/Vol] 12.9 g/dL Normal 12.0-16.0 [facility] Comment on above: Performed By: #### C BC #### [facility] [address] [place] [address] Dr. Ana Leo IG # 0.01 10e3/ul Normal 0.00-0.03 [facility] Comment on above: Performed By: #### C BC #### [facility] [address] [place] [address] Dr. Ana Leo IG % 0.1 % Normal 0.0-0.5 [facility] Comment on above: Performed By: #### C BC #### [facility] [address] [place] [address] Dr. Ana Leo LYMPH # 3.0 103/ul Normal 1.2-3.8 [facility] Comment on above: Performed By: #### C BC #### [facility] [address] [place] [address] Dr. Ana Leo Lymphocytes/100 WBC (Bld) 40.4 % Normal 20.5-60.0 [facility] Comment on above: Performed By: #### C BC #### [facility] [address] [place] [address] Dr. Ana Leo MANUAL DIFF REQ NO Normal [facility] Comment on above: Performed By: #### C BC #### [facility] [address] [place] [address] Dr. Ana Leo MCH (RBC) [Entitic mass] 28.5 pg Normal 26.7-34.0 [facility] Comment on above: Performed By: #### C BC #### [facility] [address] [place] [address] Dr. Ana Leo MCHC (RBC) [Mass/Vol] 32.7 g/dL Normal 29.9-35.2 [facility] Comment on above: Performed By: #### C BC #### [facility] [address] [place] [address] Dr. Ana Leo MCV (RBC) [Entitic vol] 87.2 fL Normal 81.0-99.0 [facility] Comment on above: Performed By: #### C BC #### [facility] [address] [place] [address] Dr. Ana Leo MONO # 0.9 103/ul Critically high 0.3-0.8 [facility] Comment on above: Performed By: #### C BC #### [facility] [address] [address] [address] Ana Leo Monocytes/100 WBC (Bld) 12.4 % Critically high 1.7-12.0 [facility] Comment on above: Performed By: #### C BC #### [facility] [address] [place] [address] Dr. Ana Leo NEUT # 3.2 103/ul Normal 1.4-6.5 [facility] Comment on above: Performed By: #### C BC #### [facility] [address] [place] [address] Dr. Ana Leo Neutrophils/100 WBC (Bld) 42.2 % Critically low 43.0-75.0 [facility] Comment on above: Performed By: #### C BC #### [facility] [address] [place] [address] Dr. Ana Leo Platelet mean volume (Bld) [Entitic vol] 9.2 fL Critically low 9.5-13.5 [facility] Comment on above: Performed By: #### C BC #### [facility] [address] [place] [address] Dr. Ana Leo PLT 267 103/ul Normal 150-450 [facility] Comment on above: Performed By: #### C BC #### [facility] [address] [place] [address] Dr. Ana Leo RBC 4.53 106/ul Normal 4.20-5.40 [facility] Comment on above: Performed By: #### C BC #### [facility] [address] [place] [address] Dr. Ana Leo WBC 7.5 103/ul Normal 4.0-11.0 [facility] Comment on above: Performed By: #### C BC #### [facility] [address] [place] [address] Dr. Ana Leo LIPID PROFILEon 03-03-2022 CHOL-HDL RATIO NORM SEE BELOW Normal [facility] Comment on above: Result Comment: 3.3 - 4.4 LOW RISK 4.4 - 7.1 AVERAGE RISK 7.1 - 11.0 MODERATE RISK >11.0 HIGH RISK Performed By: #### L IPID, BMP, TSH #### [facility] [address] [address] [address] Ana Leo Cholesterol [Mass/Vol] 164 mg/dL Normal <=200 [facility] Comment on above: Performed By: #### L IPID, BMP, TSH #### [facility] [address] [address] [address] Ana Leo Cholesterol in HDL [Mass/Vol] 65 mg/dL Critically high 40-60 [facility] Comment on above: Performed By: #### L IPID, BMP, TSH #### [facility] [address] [address] [address] Ana Leo Cholesterol in LDL [Mass/Vol] 85.4 mg/dL Normal [facility] Comment on above: Performed By: #### L IPID, BMP, TSH #### [facility] [address] [address] [address] Ana Leo Cholesterol.total/Chol esterol in HDL [Mass ratio] 2.5 {ratio} Normal [facility] Comment on above: Performed By: #### L IPID, BMP, TSH #### [facility] [address] [address] [address] Ana Leo HDL NORMAL > or = 60 mg/dl - LOW CARDIOVASCULAR RISK <40 mg/dl - HIGH CARDIOVASCULAR RISK Normal [facility] Comment on above: Performed By: #### L IPID, BMP, TSH #### [facility] [address] [address] [address] Ana Leo LDL CALC NORMAL SEE BELOW Normal [facility] Comment on above: Result Comment: <100 mg/dl OPTIMAL 100 - 129 mg/dl NEAR OR ABOVE OPTIMAL 130 - 159 mg/dl BORDERLINE HIGH 160 - 189 mg/dl HIGH >190 mg/dl VERY HIGH Performed By: #### L IPID, BMP, TSH #### [facility] [address] [address] [address] Ana Leo Triglyceride [Mass/Vol] 68 mg/dL Normal <=150 [facility] Comment on above: Performed By: #### L IPID, BMP, TSH #### [facility] [address] [address] [address] Ana Leo VLDL CALC 13.6 mg/dL Normal [facility] Comment on above: Performed By: #### L IPID, BMP, TSH #### [facility] [address] [address] [address] Ana Leo PROF CHEM 8 (BAS METB)on Anion gap [Moles/Vol] 10.5 mmol/L Normal [facility] Comment on above: Performed By: #### L IPID, BMP, TSH #### [facility] [address] [address] [address] Ana Leo Calcium [Mass/Vol] 8.5 mg/dL Normal 8.5-10.1 [facility] Comment on above: Performed By: #### L IPID, BMP, TSH #### [facility] [address] [address] [address] Ana Leo Chloride [Moles/Vol] 107 mmol/L Normal 98-107 [facility] Comment on above: Performed By: #### L IPID, BMP, TSH #### [facility] [address] [address] [address] Ana Leo CO2 [Moles/Vol] 27.9 mmol/L Normal 21.0-32.0 [facility] Comment on above: Performed By: #### L IPID, BMP, TSH #### [facility] [address] [address] [address] Ana Leo Creatinine [Mass/Vol] 0.93 mg/dL Normal 0.55-1.02 [facility] Comment on above: Performed By: #### L IPID, BMP, TSH #### [facility] [address] [address] [address] Ana Leo EGFR-AF MOZAMBICAN >60 Normal >=60 [facility] Comment on above: Performed By: #### L IPID, BMP, TSH #### [facility] [address] [address] [address] Ana Leo EGFR-NON AF MOZAMBICAN >60 Normal >=60 [facility] Comment on above: Performed By: #### L IPID, BMP, TSH #### [facility] [address] [address] [address] Ana Leo Glucose [Mass/Vol] 88 mg/dL Normal 74-106 [facility] Comment on above: Performed By: #### L IPID, BMP, TSH #### [facility] [address] [address] [address] Ana Leo Potassium [Moles/Vol] 4.4 mmol/L Normal 3.5-5.1 [facility] Comment on above: Performed By: #### L IPID, BMP, TSH #### [facility] [address] [place] [address] Dr. Ana Leo Sodium [Moles/Vol] 141 mmol/L Normal 136-145 [facility] Comment on above: Performed By: #### L IPID, BMP, TSH #### [facility] [address] [address] [address] Ana Leo Urea nitrogen [Mass/Vol] 10.0 mg/dL Normal 7.0-18.0 [facility] Comment on above: Performed By: #### L IPID, BMP, TSH #### [facility] [address] [address] [address] Ana Leo Urea nitrogen/Creatinine [Mass ratio] 10.8 mg/mg Normal [facility] Comment on above: Performed By: #### L IPID, BMP, TSH #### [facility] [address] [address] [address] Ana Leo TSHon 03-03-2022 TSH 4.155 uIU/mL Critically high 0.358-3.740 [facility] Comment on above: Performed By: #### L IPID, BMP, TSH #### [facility] [address] [place] [address] Dr. Ana Leo TSH RANGE SEE BELOW Normal [facility] Comment on above: Result Comment: <0.3 4 UIU/ml HYPERTHYROID 0.34-5.60 UIU/ml EUTHYROID >5.60 UIU/ml HYPOTHYROID Performed By: #### L IPID, BMP, TSH #### [facility] [address] [place], [place] [address] Dr. Ana Leo Basic Metabolic Panelon 07-27 Anion gap [Moles/Vol] 12 mmol/L 10 - 20 mmol/L [facility] Calcium [Mass/Vol] 8.8 mg/dL 8.4 - 10. 2 mg/dL [facility] Chloride [Moles/Vol] 104 mmol/L 98 - 10 8 mmol/L [facility] Creatinine [Mass/Vol] 0.57 mg/dL 0.40 - 1.10 [facility] GFR/1.73 sq M predicted among non-blacks MDRD (S/P/Bld) [Vol rate/Area] The eGFR should be used for monitoring renal function only and not for medication dosing. [facility] GFR/1.73 sq M.predicted CKD-EPI (S/P/Bld) [Vol rate/Area] 132 >=60 mL/min/1.73 m2 [facility] Glucose [Mass/Vol] 161 mg/dL High 65 - 99 mg/dL [facility] HCO3 [Moles/Vol] 24 mmol/L 21 - 32 mmol/L [facility] Interpretation and review of laboratory results Abnormal [facility] Potassium [Moles/Vol] 4.3 mmol/L 3.5 - 5.1 mmol/L [facility] Sodium [Moles/Vol] 136 mmol/L 135 - 145 mmol/L [facility] Urea nitrogen [Mass/Vol] 6 mg/dL Low 8 - 25 mg/dL [facility] Urea nitrogen/Creatinine [Mass ratio] 10.5 mg/mg [facility] CBCon 08-07-2020 Erythrocyte distribution width (RBC) [Entitic vol] 13.5 % 11.6 - 14.8 % [facility] Hematocrit (Bld) [Volume fraction] 37.5 % 36 - 46 % [facility] Hemoglobin (Bld) [Mass/Vol] 12.4 g/dL 12 - 16 g/dL [facility] Interpretation and review of laboratory results Abnormal [facility] MCH (RBC) [Entitic mass] 28.3 pg 26 - 34 pg [facility] MCHC (RBC) [Mass/Vol] 33.1 g/dL 31 - 37 g/dL [facility] MCV (RBC) [Entitic vol] 85.6 fL 80 - 100 fL [facility] Nucleated RBC (Bld) [#/Vol] 0.00 10*3/uL [facility] Nucleated RBC/100 WBC (Bld) [Ratio] 0.0 % [facility] Platelet mean volume (Bld) [Entitic vol] 9.0 fL Low 9.4 - 12.4 fL [facility] Platelets (Bld) [#/Vol] 284 10*3/uL [facility] RBC (Bld) [#/Vol] 4.38 10*6/uL [facility] ealth WBC (Bld) [#/Vol] 20.39 10*3/uL High [facility] CHLAMYDIA/GONORRHOEAE AMPLIF IED RNAon 08-07-2020 C. trachomatis rRNA NIRANJAN+probe Ql (Cvx) Negative Negative [facility] N. gonorrhoeae rRNA NIRANJAN+probe Ql (Cvx) Negative Negative [facility] ECG 12-LEADon 08-07-2020 Atrial Rate 61 BPM [facility] P [place] 33 degrees [facility] P-R Interval 122 ms [facility] Q-T Interval 418 ms [facility] QRS Duration 84 ms [facility] QTC Calculation (Bezet) 420 ms [facility] R [place] 104 degrees [facility] T [place] 49 degrees [facility] Ventricular Rate 61 BPM [facility] Normal sinus rhythm Rightward axis Borderline ECG Confirmed by Ezequiel Raymond MD ([id number]) on 08/07/2020 8:22:51 AM [facility] Otheron 08-07-2020 Interpretation and review of laboratory results Normal [facility] Trichomonas vaginalis Amplif ied RNAon 08-07-2020 T. vaginalis rRNA NIRANJAN+probe Ql (Cvx) Negative Negative [facility] ABORH VERIFICATIONon 020 ABO and Rh group Nom (Bld) O Positive [facility] ABO and Rh group Nom (Bld) ABO/Rh Verification [facility] Comment on above: Patient's ABO/Rh is verified. CBC WITH AUTO DIFFERENTIALon 08-06-2020 Basophils (Bld) [#/Vol] 0.06 10*3/uL [facility] Basophils/100 WBC (Bld) 0.4 % [facility] Eosinophils (Bld) [#/Vol] 0.09 10*3/uL [facility] Eosinophils/100 WBC (Bld) 0.6 % [facility] Erythrocyte distribution width (RBC) [Entitic vol] 13.2 % 11.6 - 14.8 % [facility] Hematocrit (Bld) [Volume fraction] 43.8 % 36 - 46 % [facility] Hemoglobin (Bld) [Mass/Vol] 14.1 g/dL 12 - 16 g/dL [facility] Immature granulocytes (Bld) [#/Vol] 0.05 10*3/uL [facility] Immature granulocytes/100 WBC (Bld) 0.30 % [facility] Comment on above: The IG parameter is the percentage of metamyelocytes, myelocytes and promyelocytes. An immature granulocyte count (IG) of 1% or more suggests the possibility of infection, an IG count of 3% is very likely related to an infection. Interpretation and review of laboratory results Abnormal [facility] Lymphocytes (Bld) [#/Vol] 1.50 10*3/uL [facility] Lymphocytes/100 WBC (Bld) 10.1 % [facility] MCH (RBC) [Entitic mass] 27.9 pg 26 - 34 pg [facility] MCHC (RBC) [Mass/Vol] 32.2 g/dL 31 - 37 g/dL [facility] MCV (RBC) [Entitic vol] 86.6 fL 80 - 100 fL [facility] Monocytes (Bld) [#/Vol] 0.82 10*3/uL [facility] Monocytes/100 WBC (Bld) 5.5 % [facility] Neutrophils (Bld) [#/Vol] 12.35 10*3/uL High [facility] Neutrophils/100 WBC (Bld) 83.1 % [facility] Nucleated RBC (Bld) [#/Vol] 0.00 10*3/uL [facility] Nucleated RBC/100 WBC (Bld) [Ratio] 0.0 % [facility] Platelet mean volume (Bld) [Entitic vol] 8.7 fL Low 9.4 - 12.4 fL [facility] Platelets (Bld) [#/Vol] 323 10*3/uL [facility] RBC (Bld) [#/Vol] 5.06 10*6/uL [facility] ealth WBC (Bld) [#/Vol] 14.87 10*3/uL [facility] COVID-19, MOLECULARon 2019 SARS-COV-2 (NGUYEN ID) Not Detected Normal Not Detecte d [facility] Comment on above: Result Comment: This test was performed under the FDA's Emergency Use Authorization (EUA). Testing was performed using the [employer] ID NOW COVID-19 assay on the ID NOW platform. This test has not been approved for use in asymptomatic patients and its performance in this patient population has not been evaluated. Negative results do not rule out the presence of SARS-CoV-2/COVID-19. Fact sheets for the EUA can be found at the following links: For Healthcare Providers: https://www.fda.gov/media/075915/download For Patients: https://www.fda.gov/media/966945/download Performed By: #### L [id number] #### [facility] [address] [place] [address] Jignesh Leija M.D. [id number] COVID-19, Molecularon 2019 Interpretation and review of laboratory results Normal [facility] SARS-CoV-2 Not Detected Not Detected [facility] Comment on above: This test was perfor med under the FDA's Emergency Use Authorization (EUA). Testing was performed using the [employer] ID NOW COVID-19 assay on the ID NOW platform. This test has not been approved for use in asymptomatic patients and its performance in this patient population has not been evaluated. Negative results do not rule out the presence of SARS-CoV-2/COVID-19. Fact sheets for the EUA can be found at the following links: For Healthcare Providers: https://www.fda.gov/media/925626/download For Patients: https://www.fda.gov/media/209356/download CT ABDOMEN PELVIS WITH IV CO NTRAST [...] called by Dr. Brii Young to Dr. ISAAC GIBSON on 08/06/2020 at 17:30. [employer] Workstation ID: [id number] Dictated by: BRII YOUNG on TueAug 06, 2020 5:32:28 PM EST Transcribed by: LISA JUAREZ on TueAug 06, 2020 5:39:06 PM EST Finalized by: BRII YOUNG on TueAug 06, 2020 6:26:37 PM EST Normal [facility] Comment on above: Order Comment: Injur [...] called by Dr. Brii Young to Dr. ISAAC GIBSON on 08/06/2020 at 17:30. [employer] Workstation ID: [id number] [facility], Rad In Replaced By [facility] - 08/06/2020 6:29 PM EST EXAMINATION: CT [...] called by Dr. Brii Young to Dr. ISAAC GIBSON on 08/06/2020 at 17:30. [employer] Workstation ID: [id number] [facility] EXAMINATION: CT ABDOMEN PELVIS WITH IV CONTRAST [...] abscess. No acute osseous abnormality is identified. [facility] Chem 7on 08-06-2020 Anion gap [Moles/Vol] 17 mmol/L 10 - 20 mmol/L [facility] Chloride [Moles/Vol] 100 mmol/L 98 - 10 8 mmol/L [facility] Creatinine [Mass/Vol] 0.66 mg/dL 0.40 - 1.10 [facility] GFR/1.73 sq M predicted among non-blacks MDRD (S/P/Bld) [Vol rate/Area] The eGFR should be used for monitoring renal function only and not for medication dosing. [facility] GFR/1.73 sq M.predicted CKD-EPI (S/P/Bld) [Vol rate/Area] 126 >=60 mL/min/1.73 m2 [facility] Glucose [Mass/Vol] 88 mg/dL 65 - 99 mg/dL [facility] HCO3 [Moles/Vol] 23 mmol/L 21 - 32 mmol/L [facility] Interpretation and review of laboratory results Normal [facility] Potassium [Moles/Vol] 4.1 mmol/L 3.5 - 5.1 mmol/L [facility] Sodium [Moles/Vol] 136 mmol/L 135 - 145 mmol/L [facility] Urea nitrogen [Mass/Vol] 10 mg/dL 8 - 25 mg/dL [facility] Urea nitrogen/Creatinine [Mass ratio] 15.2 mg/mg [facility] Hepatic Function Panel (LFT) on 08-06-2020 Albumin [Mass/Vol] 4.5 g/dL 3.2 - 5.2 g/dL [facility] ALP [Catalytic activity/Vol] 67 U/L 40 - 140 U/L [facility] ALT [Catalytic activity/Vol] 21 U/L 0 - 40 U/L [facility] AST [Catalytic activity/Vol] 33 U/L 0 - 45 U/L [facility] Comment on above: Slightly Hemolyzed Bilirubin [Mass/Vol] 0.3 mg/dL 0 - 1.3 mg/dL [facility] Bilirubin.conjugated [Mass/Vol] mg/dL 0 - 0.4 mg/dL [facility] Interpretation and review of laboratory results Abnormal [facility] Protein [Mass/Vol] 8.2 g/dL High 6 - 8 g/dL [facility] Lipaseon 08-06-2020 Interpretation and review of laboratory results Normal [facility] Lipase [Catalytic activity/Vol] 34 U/L 15 - 65 U/L [facility] Otheron 08-06-2020 Extra Tube Hold for add-ons. [facility] Comment on above: Auto resulted. PT/INRon 08-06-2020 INR Coag (PPP) [Relative time] 1.0 {INR} [facility] Interpretation and review of laboratory results Normal [facility] PT Coag (PPP) [Time] 12.8 s [facility] During the induction phase of oral anticoagulation, the INR may not reflect the anticoagulation status of the patient. Therapeutic ranges for INR's are: Most clinical situations: INR 2.0-3.0 Mechanical Prosthetic Valve: INR 2.5-3.5 Critical: INR >5.0 [facility] Type and Screenon 08-06-2020 ABO and Rh group Nom (Bld) O Positive [facility] Blood group antibody screen Ql Negative [facility] Specimen Expires 08/09/2020 23:59 EST [facility] URINALYSISon 08-06-2020 Bacteria Auto Ql (U) None Seen None Seen /hpf [facility] Bilirubin Ql (U) Negative Negative [facility] th Clarity Refractometry automated (U) [facility] Abnormal Clear [facility] Color (U) Yellow Colorless, Yellow [facility] Epithelial cells.squamous Auto (Urine sed) [#/Area] 11 High [facility] Glucose Auto test strip (U) [Mass/Vol] Negative Negative mg/dL [facility] Hemoglobin Auto test strip Ql (U) Negative Negative [facility] Interpretation and review of laboratory results Abnormal [facility] Ketones (U) [Mass/Vol] 20 Abnormal Negative mg/d L [facility] Leukocyte esterase Auto test strip Ql (U) Negative Negative [facility] h Mucus Auto (Urine sed) [#/Area] Few Abnormal None Seen, Rare /lpf [facility] Nitrite Auto test strip Ql (U) Negative Negative [facility] pH (U) 6.0 [pH] [facility] Protein (U) [Mass/Vol] 30 Abnormal Negative mg/d L [facility] Comment on above: False positive resul ts may occur in urines with large amounts of hemoglobin, pH greater than 8.0, contrast medium, or disinfectants including ammonium compounds. Specific gravity (U) [Rel density] 1.033 High [facility] Urobilinogen (U) [Mass/Vol] <2.0 <2.0 mg/dL [facility] Microscopic examination is performed on all urinalysis samples and only positive findings are reported. The test for blood on the chemical analytic portion of urinalysis may also be positive due to hemoglobinuria and myoglobinuria and if red blood cells are present they are quantified by microscopic examination. [facility] Urine Pregnancyon 08-06-2020 HCG ( test) Ql (U) Negative Negative [facility] Interpretation and review of laboratory results Normal [facility] WET PREPARATIONon 08-06-2020 Clue cells Wet prep Ql (Unsp spec) No Clue Cells Seen No Clue Cells Seen [facility] Interpretation and review of laboratory results Abnormal [facility] T. vaginalis Wet prep Ql (Genital specimen) No Trichomonas Seen No Trichomonas Seen [facility] WBC Wet prep Ql (Unsp spec) Few WBC's Seen Abnormal No WBC's Seen [facility] Yeast Wet prep Ql (Genital specimen) No Yeast Seen No Yeast Seen [facility] Yeast.hyphae Wet prep Ql (Unsp spec) No Yeast with Hyphae Seen No Yeast with Hyphae Seen [facility] Vital Signs Date Time Vital Sign Value Performing Clinician Facility 10-30-2024 15:22-0500 Body height 162.56 cm [facility] 10-30-2024 15:22-0500 Body mass index (BMI) [Ratio] 39.4 kg/m2 [facility] 10-30-2024 15:22-0500 Body weight 104.32 kg [facility] 10-30-2024 15:22-0500 Diastolic blood pressure 69 mm[Hg] [facility] 10-30-2024 15:22-0500 Heart rate 99 /min [facility] 10-30-2024 15:22-0500 Systolic blood pressure 108 mm[Hg] [facility] 10-22-2024 13:12-0500 Body height 162.6 cm Thelma Richardson MD Work Phone: [facility] 10-22-2024 13:12-0500 Body mass index (BMI) [Ratio] 39.48 kg/m2 Thelma Richardson MD Work Phone: [facility] 10-22-2024 13:12-0500 Body weight 104.33 kg Thelma Richardson MD Work Phone: [facility] 10-22-2024 13:12-0500 Diastolic blood pressure 94 mm[Hg] Thelma Richardson MD Work Phone: [facility] 10-22-2024 13:12-0500 Heart rate 82 /min Thelma Richardson MD Work Phone: [facility] 10-22-2024 13:12-0500 Respiratory rate 18 /min Thelma Richardson MD Work Phone: [facility] 10-22-2024 13:12-0500 Systolic blood pressure 128 mm[Hg] Thelma Richardson MD Work Phone: [facility] 09-24-2024 09:30-0500 Body height 162.56 cm [facility] 09-24-2024 09:30-0500 Body mass index (BMI) [Ratio] 39.2 kg/m2 [facility] 09-24-2024 09:30-0500 Body temperature 98.5 [degF] [facility] 09-24-2024 09:30-0500 Body weight 103.53 kg [facility] 09-24-2024 09:30-0500 Diastolic blood pressure 80 mm[Hg] [facility] 09-24-2024 09:30-0500 Heart rate 85 /min [facility] 09-24-2024 09:30-0500 SaO2% (BldA) [Mass fraction] 96 % [facility] 09-24-2024 09:30-0500 Systolic blood pressure 141 mm[Hg] [facility] 08-31-2024 14:40-0500 Body height 160.02 cm [facility] 08-31-2024 14:40-0500 Body mass index (BMI) [Ratio] 40 kg/m2 [facility] 08-31-2024 14:40-0500 Body weight 102.51 kg [facility] 08-31-2024 14:40-0500 Diastolic blood pressure 85 mm[Hg] [facility] 08-31-2024 14:40-0500 Heart rate 91 /min [facility] 08-31-2024 14:40-0500 Systolic blood pressure 120 mm[Hg] [facility] 03-15-2024 15:04-0400 Body height 160.02 cm MD Sarah Olmos Work Phone: [facility] 03-15-2024 15:04-0400 Body temperature 97.9 [degF] MD Sarah Olmos Work Phone: [facility] 03-15-2024 15:04-0400 Body weight 94 kg MD Sarah Olmos Work Phone: [facility] 03-15-2024 15:04-0400 Diastolic blood pressure 80 mm[Hg] MD Sarah Olmos Work Phone: [facility] 03-15-2024 15:04-0400 Heart rate 91 /min MD Sarah Olmos Work Phone: [facility] 03-15-2024 15:04-0400 Respiratory rate 16 /min MD Sarah Olmos Work Phone: [facility] 03-15-2024 15:04-0400 SaO2% (BldA) [Mass fraction] 98 % MD Sarah Olmos Work Phone: [facility] 03-15-2024 15:04-0400 Systolic blood pressure 134 mm[Hg] MD Sarah Olmos Work Phone: [facility] 03-14-2024 20:58-0400 Body height 160.02 cm MD Sarah Olmos Work Phone: [facility] 03-14-2024 20:58-0400 Body temperature 97.7 [degF] MD Sarah Olmos Work Phone: [facility] 03-14-2024 20:58-0400 Body weight 96.1 kg MD Sarah Olmos Work Phone: [facility] 03-14-2024 20:58-0400 Diastolic blood pressure 94 mm[Hg] MD Sarah Olmos Work Phone: [facility] 03-14-2024 20:58-0400 Heart rate 95 /min MD Sarah Olmos Work Phone: [facility] 03-14-2024 20:58-0400 Respiratory rate 18 /min MD Sarah Olmos Work Phone: [facility] 03-14-2024 20:58-0400 SaO2% (BldA) [Mass fraction] 100 % MD Sarah Olmos Work Phone: [facility] 03-14-2024 20:58-0400 Systolic blood pressure 137 mm[Hg] MD Sarah Olmos Work Phone: [facility] 08-24-2023 14:55-0500 Body height 162.56 cm Sarah Cynthia Other [facility] Other 08-24-2023 14:55-0500 Body mass index (BMI) [Ratio] 35.49 kg/m2 Sarah Cynthia Other [facility] Other 08-24-2023 14:55-0500 Body temperature 98.2 [degF] Sarah Cynthia Other [facility] Other 08-24-2023 14:55-0500 Body weight 93.8 kg Sarah Cynthia Other [facility] Other 08-24-2023 14:55-0500 Diastolic blood pressure 89 mm[Hg] Sarah Cynthia Other [facility] Other 08-24-2023 14:55-0500 Respiratory rate 18 /min Sarah Cynthia Other [facility] Other 08-24-2023 14:55-0500 SaO2% (BldA) [Mass fraction] 98 % Sarah Cynthia Other [facility] Other 08-24-2023 14:55-0500 Systolic blood pressure 140 mm[Hg] Sarah Cynthia Other [facility] Other 07-22-2023 14:30-0400 Body height 162.56 cm Sarah Olmos Other [facility] Other 07-22-2023 14:30-0400 Body mass index (BMI) [Ratio] 34.6 kg/m2 Sarah Olmos Other [facility] Other 07-22-2023 14:30-0400 Body weight 91.45 kg Sarah Olmos Other [facility] Other 07-22-2023 14:30-0400 Diastolic blood pressure 87 mm[Hg] Sarah Olmos Other [facility] Other 07-22-2023 14:30-0400 Systolic blood pressure 123 mm[Hg] Sarah Olmos Other [facility] Other 10-20-2022 11:20-0500 Body height 162.56 cm Sarah Riveramond Other [facility] Other 10-20-2022 11:20-0500 Body mass index (BMI) [Ratio] 35.18 kg/m2 Sarah Riveramond Other [facility] Other 10-20-2022 11:20-0500 Body temperature 98 [degF] Sarah Bennett Other [facility] Other 10-20-2022 11:20-0500 Body weight 92.99 kg Sarah Bennett Other [facility] Other 10-20-2022 11:20-0500 Diastolic blood pressure 85 mm[Hg] Sarah Sabrina Other [facility] Other 10-20-2022 11:20-0500 Respiratory rate 18 /min Sarah Riveramond Other [facility] Other 10-20-2022 11:20-0500 SaO2% (BldA) [Mass fraction] 97 % Sarah Riveramond Other [facility] Other 10-20-2022 11:20-0500 Systolic blood pressure 125 mm[Hg] Sarah Bennett Other [facility] [employer] Other 04-17-2022 18:14-0400 Diastolic blood pressure 80 mm[Hg] MD Sarah Olmos Work Phone: [facility] 04-17-2022 18:14-0400 Heart rate 85 /min MD Sarah Olmos Work Phone: [facility] 04-17-2022 18:14-0400 Respiratory rate 20 /min MD Sarah Olmos Work Phone: [facility] 04-17-2022 18:14-0400 SaO2% (BldA) [Mass fraction] 100 % MD Sarah Olmos Work Phone: [facility] 04-17-2022 18:14-0400 Systolic blood pressure 133 mm[Hg] MD Sarah Olmos Work Phone: [facility] 04-17-2022 15:27-0400 Body height 162.56 cm MD Sarah Olmos Work Phone: [facility] 04-17-2022 15:27-0400 Body temperature 98.7 [degF] MD Sarah Olmos Work Phone: [facility] 04-17-2022 15:27-0400 Body weight 92.25 kg MD Sarah Olmos Work Phone: [facility] 08-07-2020 12:20-0500 Respiratory Rate 12 /min [facility] 08-07-2020 10:21-0500 Body Temperature 98.49 [degF] [facility] 08-07-2020 10:21-0500 BP Diastolic 73 mm[Hg] [facility] 08-07-2020 10:21-0500 BP Systolic 113 mm[Hg] [facility] 08-07-2020 10:21-0500 Pulse (Heart Rate) 90 /min [facility] 08-07-2020 10:21-0500 Pulse Oximetry 96 % [facility] 08-06-2020 13:08-0500 BMI (Body Mass Index) 31.84 kg/m2 Berlin Garcia [facility] 08-06-2020 13:08-0500 Body weight 84.14 kg Berlin Garcia [facility] 08-06-2020 13:08-0500 Height 162.6 cm Berlin Garcia [facility] 08-06-2020 12:02-0500 BMI (Body Mass Index) 31.93 kg/m2 Jaz Campos [facility] 08-06-2020 12:02-0500 Body Temperature 97.59 [degF] Jaz Campos [facility] 08-06-2020 12:02-0500 Body weight 84.37 kg Jaz Campos [facility] 08-06-2020 12:02-0500 BP Diastolic 88 mm[Hg] Jaz Campos [facility] 08-06-2020 12:02-0500 BP Systolic 129 mm[Hg] Jaz Campos [facility] 08-06-2020 12:02-0500 Height 162.6 cm Jaz Campos [facility] 08-06-2020 12:02-0500 Pulse (Heart Rate) 71 /min Jaz Campos [facility] 08-06-2020 12:02-0500 Pulse Oximetry 97 % Jaz Campos [facility] 08-06-2020 12:02-0500 Respiratory Rate 15 /min Jaz Campos [facility] Encounters Encounter Date Encounter Type Care Provider Facility Start: 10-30-2024 End: 10-30-2024 ambulatory [facility] Work Phone: Start: 10-30-2024 End: 10-30-2024 Patient encounter procedure [facility] Work Phone: Start: 10-22-2024 End: 10-22-2024 Bamboo flowsheet Thelma Richardson MD Work Phone: [facility] Start: 10-22-2024 End: 10-22-2024 Bamboo flowsheet Thelma Richardson MD Work Phone: [facility] Start: 10-22-2024 End: 10-22-2024 Office outpatient new 45 minutes Thelma Richardson MD Work Phone: [facility] Comment on above: PCOS (polycystic ova elio syndrome) (Primary Dx); Vitamin D deficiency; Encounter for dietary consultation; Class 2 obesity due to excess calories without serious comorbidity with body mass index (BMI) of 39.0 to 39.9 in adult; Paras's disease ([facility]/HCC) Start: 10-22-2024 End: 10-22-2024 ambulatory THELMA RICHARDSON Not Available Start: 09-24-2024 End: 09-24-2024 Patient encounter procedure [facility] Physician [facility] Work Phone: Start: 08-31-2024 Patient encounter status [facility] Start: 08-31-2024 End: 08-31-2024 Encounter for general adult medical examination without abnormal findings [facility] Start: 08-31-2024 End: 08-31-2024 Patient encounter procedure [facility] Work Phone: Start: 08-31-2024 Non-patient / Non-visit [facility] Work Phone: Start: 07-13-2024 End: 07-13-2024 ambulatory DEBRA A KIEPERT Not Available Start: 07-13-2024 End: 07-13-2024 Office outpatient new 30 minutes Debra A Kiepert [employer] Work Phone: [facility] Comment on above: Paronychia of great toe of right foot (Primary Dx) Start: 03-15-2024 End: 03-15-2024 Emergency department patient visit MD Sarah Olmos Work Phone: [facility] Work Phone: Start: 03-14-2024 End: 03-14-2024 Emergency department patient visit MD Sarah Olmos Work Phone: [facility] Work Phone: Start: 01-11-2024 Non-patient / Non-visit MD Neda Olmos Work Phone: [facility] Physician [facility] Work Phone: Start: 10-28-2023 End: 10-28-2023 ambulatory Sarah Olmos Other [facility] Other Start: 10-28-2023 Office outpatient vi sit 15 minutes Sarah Olmos [facility] Start: 09-01-2023 End: 09-28-2023 ambulatory NABOR PIKE Facility:[facility] Start: 08-24-2023 End: 08-24-2023 ambulatory Sarah Cynthia Other [facility] Other Start: 08-24-2023 Office outpatient vi sit 15 minutes Saraheric Marei [facility] Start: 07-28-2023 End: 07-28-2023 ambulatory Sarah Olmos Other [facility] Other Start: 07-28-2023 Telephone encounter Sarah Olmos [facility] Start: 07-22-2023 End: 07-22-2023 ambulatory Sarah Olmos Other [facility] Other Start: 07-22-2023 Office outpatient vi sit 15 minutes Sarah Olmos [facility] Start: 12-20-2022 End: 12-21-[address] SARAH OLMOS Facility: Start: 10-21-2022 (Televisit) Televisit Sarah [facility] Start: 10-21-2022 End: 10-21-2022 ambulatory Sarah Omlos Other [facility] Other Start: 10-20-2022 End: 10-20-2022 ambulatory Sarah Bennett Other [facility] Other Start: 10-20-2022 Office outpatient ne w 20 minutes Sarahalia Bennett [facility] Start: 10-19-2022 End: 10-19-2022 ambulatory Sarah Olmos Other [facility] Other Start: 10-19-2022 Telephone encounter Sarah Olmos [facility] Start: 07-31-2022 End: 07-31-2022 ambulatory RAJEEV KIM . Facility:[facility] Start: 06-09-2022 End: 06-10-[address] SARAH OLMOS Facility:[facility] Start: 06-01-2022 Adult health examination Sarah Olmos Other [facility] Other Start: 04-17-2022 End: 04-17-2022 Emergency department patient visit MD Sarah Olmos Work Phone: [facility] Start: 03-06-2022 Encounter for genera l adult medical examination without abnormal findings DR SARAH OLMOS [facility] Start: 03-03-2022 End: 03-04-[address] SARAH OLMOS Facility:[facility] Start: 03-03-2022 End: 03-04-2022 Encounter for general adult medical examination without abnormal findings DR SARAH OLMOS Facility:[facility] Start: 08-06-2020 End: 08-07-2020 Patient encounter procedure PHYSICIAN [facility] Start: 08-06-2020 End: 08-06-2020 Patient encounter procedure PHYSICIAN [facility] Start: 08-06-2020 End: 08-07-2020 Evaluation and management of inpatient Berlin Garcia Work Phone: [facility] Comment on above: Appendicitis, unspec ified appendicitis type (Primary Dx); Appendicolith Start: 08-06-2020 End: 08-06-2020 Patient encounter procedure Jaz Campos Work Phone: [facility] Comment on above: Lower abdominal pain (Primary Dx) Start: 06-18-2020 Routine infant or ch ild health check Sarah Olmos Other [facility] Other Start: 06-18-2020 Well child visit Sarah Olmos Other [facility] Other Procedures Date Procedure Procedure Detail Performing Clinician Start: 04-17-2022 Plain chest X-ray MD Sarah Olmos Work Phone: Start: 08-07-2020 End: 08-07-2020 APPENDECTOMY LAPAROSCOPIC Zane Escobedo Work Phone: Start: 08-07-2020 Basic metabolic 1999 panel - Serum or Plasma Terrell John Work Phone: Start: 08-07-2020 Complete blood count (hemogram) panel - Blood by Automated count Terrell John Work Phone: Start: 08-06-2020 COVID-19, MOLECULAR Berlin Garcia Work Phone: Start: 08-06-2020 12 lead ECG Brandon Santy Gagan Work Phone: Start: 08-06-2020 Blood group typing Aracely Mcclain Yamil Work Phone: Start: 08-06-2020 Ct abdomen & pelvis w/contrast material Isaac Chanel Gibson Work Phone: Start: 08-06-2020 Cast care: wet Isaac Chanel Gibson Work Phone: Start: 08-06-2020 Chlamydia trachomatis rRNA assay Isaac Buchanan Arthur Work Phone: Start: 08-06-2020 Iadna trichomonas vaginalis amplified probe tech Isaac Aggarwalpatricia Gibson Work Phone: Start: 08-06-2020 Neisseria gonorrhoeae nucleic acid detection Isaac Aggarwalpatricia Gibson Work Phone: Start: 08-06-2020 Basic metabolic 1998 panel - Serum or Plasma Berlin Garcia Work Phone: Start: 08-06-2020 Blood type and Indirect antibody screen panel - Blood Brandon Santy Conner Work Phone: Start: 08-06-2020 Choriogonadotropin ( test) [Presence] in Urine Berlin Garcia Work Phone: Start: 08-06-2020 Complete blood count with white cell differential, automated Berlin Garcia Work Phone: Start: 08-06-2020 Complete blood count with white cell differential, manual Berlin Garcia Work Phone: Start: 08-06-2020 ROLLINS TOP Berlin Garcia Work Phone: Start: 08-06-2020 Hepatic function 2000 panel - Serum or Plasma Isaac Gibson Work Phone: Start: 08-06-2020 INR in Platelet poor plasma by Coagulation assay Brandon Conner Work Phone: Start: 08-06-2020 LAVENDER TOP Berlin Garcia Work Phone: Start: 08-06-2020 LIGHT BLUE TOP Berlin Garcia Work Phone: Start: 08-06-2020 LIGHT GREEN TOP Berlin Garcia Work Phone: Start: 08-06-2020 Lipase [Enzymatic activity/volume] in Serum or Plasma Isaac Gibson Work Phone: Start: 08-06-2020 MINT GREEN TOP Berlin Garcia Work Phone: Start: 08-06-2020 PINK TOP Berlin Garcia Work Phone: Start: 08-06-2020 RAINBOW DRAW Berlin Garcia Work Phone: Start: 08-06-2020 Urinalysis Berlin Garcia Work Phone: Start: 12-01-2016 Contraception care education Sarah duff Other SARS Antigen (LFIA) MD Urvashi Olmos Work Phone: Plan of Treatment Date Care Activity Detail Author Start: 01-21-2025 End: 01-21-2025 Patient encounter procedure 01/21/2025 2:40 PM EDT Office Visit [facility] [address] [place] [phone] Thelma Richardson MD [address] [place] [address] [facility] Start: 01-01-2025 End: 01-01-2025 Patient encounter procedure 01/01/2025 10:00 AM EDT Office Visit [facility] [address] [place] [id number] Kristine Chávez, DO [address] [place] [address] [facility] Start: 10-30-2024 Patient referral [facility] Work Phone: Start: 10-22-2024 End: 10-22-2025 17-Hydroxyprogesterone 17-Hydroxyprogesterone Lab Routine PCOS (polycystic ovarian syndrome) Expected: 10/22/2024 (Approximate), Expires: 10/22/2025 [facility] Comment on above: Expected: 10/22/2024 (Approximate), Expires: 10/22/2025 Start: 10-22-2024 End: 10-22-2025 Basic metabolic 1998 panel - Serum or Plasma Basic metabolic panel Lab Routine PCOS (polycystic ovarian syndrome) Expected: 10/22/2024 (Approximate), Expires: 10/22/2025 [facility] Work Phone: Comment on above: Expected: 10/22/2024 (Approximate), Expires: 10/22/2025 Start: 10-22-2024 End: 10-22-2025 Cortisol AM Cortisol AM Lab Routine PCOS (polycystic ovarian syndrome) Expected: 10/22/2024 (Approximate), Expires: 10/22/2025 [facility] Comment on above: Expected: 10/22/2024 (Approximate), Expires: 10/22/2025 Start: 10-22-2024 End: 10-22-2025 Testosterone [Mass/volume] in Serum or Plasma Testosterone Lab Routine PCOS (polycystic ovarian syndrome) Expected: 10/22/2024 (Approximate), Expires: 10/22/2025 [facility] Comment on above: Expected: 10/22/2024 (Approximate), Expires: 10/22/2025 Start: 10-22-2024 End: 10-22-2024 Patient encounter procedure 10/22/2024 1:10 PM EST Office Visit [facility] [address] [place] [phone] Thelma Richardson MD [address] [place] [address] Arrived [facility] Comment on above: Arrived Start: 05-27-2020 Influenza vaccinatio n given Sequential Influenza Vaccine (#1) [facility] Start: 2016 Hepatitis C antibody , confirmatory test Hepatitis C Screening [facility] Start: 2013 HIV screening HIV Screening [facility] Start: 2009 Vaccination for lexus n papillomavirus HPV Vaccines (1 - 2-dose series) [facility] Start: 2001 History and physical examination, annual for health maintenance Wellness Visit [facility] Start: 1998 Screening for Chlamy olvin trachomatis Chlamydia Screening [facility] Start: 1998 Screening for malign ant neoplasm of cervix Pap Smear [facility] Start: 1998 Tetanus vaccination Tetanus: Every 1 0yrs [facility] Patient Education [facility] Work Phone: Patient referral [facility] Work Phone: Procedure on tissue specimen [facility] Comment on above: Release Upon Orderin g for 1 Occurrences starting 08/07/2020, 1 completed [facility] Immunizations Immunization Date Immunization Notes Care Provider Fa [email or web address] 03-03-2021 COVID-19 Vaccine Pfi zer - Documentation Purposes Only Sarah Olmos Other [facility] 02-10-2021 COVID-19 Vaccine Mod theodore - Documentation Purposes Only Sarah Olmos Other [facility] Payers Date Payer Category Payer Private Health Insurance [employer] [id number] 2024 Unknown [id number] 2024 Self-pay [id number] 2023 Blue Cross Blue Shield [id number] 2018 Unknown ANTHEM ANTHEM BLUE/PREF/HMO/PPO [id number] 2018-Present [id number] 1998 Unknown [id number] 903 1998 Unknown [id number] 900 1998 Unknown [id number]. 593 1998 Unknown [id number]. 593 1998 Unknown [id number] 593 1998 Unknown [id number]. 593 1998 Unknown [id number] 718 1998 Unknown [id number]. 1259 1998 Unknown [id number]. 1259 1959 Unknown [id number] Unknown [id number] 531 Unknown [id number] 531 Social History Date Type Detail Facility Start: 08-06-2020 End: 07-11-2023 Tobacco smoking status NHIS Never smoker [facility] Start: 08-06-2020 End: 07-11-2023 Tobacco use and exposure Never used [facility] Start: 08-06-2020 End: 08-07-2020 Alcohol intake Current drinker of alcohol (finding) [facility] Start: 1998 Sex Assigned At Not on file [facility] Exposure to SARS-CoV-2 (event) Not sure [facility] Start: 2000 Sex Assigned At Female [facility] Start: 05-02-2024 Sex Assigned At [facility] Other Start: 03-14-2024 End: 03-15-2024 Tobacco smoking status [facility] Current Light tobacco smoker [facility] Start: 07-13-2024 Alcoholic beverage intake Ex-drinker (finding) [facility] Start: 05-02-2024 History of Social function [facility] Start: 05-17-2023 Alcohol Comment 1-2 drinks 2-4 x a month in the past year, Caffeine intake: coffee 2-3 x a week [facility] Start: 10-30-2024 Sex Female (finding) [facility] NEGATED: Highlighted row [facility] Clinical Notes 10-20-2022 to 10-22-2024 Thelma Richardson MD - 10/22/2024 1:10 PM EST Note Date & Type Note Facility 10-22-2024 History of Presen t illness Narrative Rhea Corcoran is a 24 y.o. female Thelma Richardson MD presents with chief complaint of Polycystic Ovary Syndrome (NEW NO A1C IN THE PAST/ SOME LABS NO REFERRL) HPI: HPI 09/2024 New patient came by herSelf for PCOS, diagnosed long time ago, has regular cycles, hirsutism bothering her and weight gain, not interested with at this time. SUBJECTIVE: MEDICATIONS: Current Outpatient Medications Medication Instructions Cariprazine HCl (Vraylar) 4.5 MG capsule 1 tablet, Daily dexAMETHasone (DECADRON) 1 mg, Oral, Once escitalopram (Lexapro) 10 MG tablet 1 tablet, Daily lamoTRIgine (LaMICtal) 150 MG tablet 1 tablet, Daily levothyroxine (Synthroid, Levoxyl) 50 MCG tablet Every 24 hours metFORMIN (GLUCOPHAGE) 500 mg, Oral, 2 times daily with meals norgestimate-ethinyl estradiol (Sprintec 28) 0.25-35 MG-MCG tablet 1 tablet, Oral, Every 24 hours QUEtiapine (SEROquel) 50 MG tablet 1 tablet, Nightly Rimegepant Sulfate (Nurtec) 75 MG tablet dispersible 1 tablet orally as needed (prn) Strattera 18 mg, Oral, Daily temazepam (RESTORIL) 7.5 mg, Nightly PRN tiZANidine (Zanaflex) 4 MG tablet 1 tablet ALLERGIES: No Known Allergies Past Medical History: Diagnosis Date Abnormal Pap smear of cervix HPV (human papilloma virus) infection PCOS (polycystic ovarian syndrome) Radius fracture right Past Surgical History: Procedure Laterality Date APPENDECTOMY 08/07/2020 CAST / SPLINT / FX Right casting: Radius Fracture WISDOM TOOTH EXTRACTION REVIEW OF SYMPTOMS: 14 POINT OF SYSTEM REVIEWED AND NEGATIVE OBJECTIVE: Visit Vitals BP (!) 128/94 Pulse 82 Resp 18 Ht 5' 4 Wt 230 lb BMI 39.48 kg/m Smoking Status Never BSA 2.17 m Physical Exam Constitutional: Appearance: Normal appearance. She is normal weight. HENT: Head: Normocephalic and atraumatic. Right Ear: External ear normal. Nose: Nose normal. Mouth/Throat: Pharynx: Oropharynx is clear. Eyes: Extraocular Movements: Extraocular movements intact. Pupils: Pupils are equal, round, and reactive to light. Cardiovascular: Rate and Rhythm: Normal rate and regular rhythm. Pulmonary: Effort: Pulmonary effort is normal. Abdominal: General: Abdomen is flat. Palpations: Abdomen is soft. Musculoskeletal: General: Normal range of motion. Skin: General: Skin is warm. Neurological: General: No focal deficit present. Mental Status: She is alert. Psychiatric: Mood and Affect: Mood normal. Behavior: Behavior normal. Ferriman- gallwey score 9 ASSESSMENT AND PLAN: Assessment/Plan Diagnoses and all orders for this visit: PCOS (polycystic ovarian syndrome) - dexAMETHasone (Decadron) 1 MG tablet; Take 1 tablet (1 mg) by mouth 1 (one) time for 1 dose - metFORMIN (Glucophage) 500 MG tablet; Take 1 tablet (500 mg) by mouth in the morning and 1 tablet (500 mg) in the evening. Take with meals. - Basic metabolic panel; Future - Testosterone; Future - 17-Hydroxyprogesterone; Future - Cortisol AM; Future We will rule out hyper androgenic, [place], CAH, I will start metformin 500 twice a day. Vitamin D deficiency Encounter for dietary consultation Diet and exercise reviewed with the patient Advised to lose 5-7 percent of her weight at least Class 2 obesity due to excess calories without serious comorbidity with body mass index (BMI) of 39.0 to 39.9 in adult Paras's disease (CMS/HCC) Follow up in about 3 months (around 01/20/2025). documented in this encounter [facility] 08-31-2024 Evaluation note Diagnosis Onset Date Resolution Fatigue acute August 31, 2024 2:35pm Hypothyroid acute August 31, 2024 2:35pm Wellness examination acute Dece mb2023 2:35pm URI (upper respiratory infection) noneactive September 24, 024 9:19am GERD (gastroesophageal reflux disease) acute October 30 3:21pm [facility] Work Phone: 1(472) 895-974810-18-2024 History of Present illness Narrative* Debra Lamb NP - 07/13/2024 6:45 PM EDT HPI: Historian of HPI: patient Rhea Corcoran is a 24 y.o. female who presents today to the Urgent Care with the following complaints and denials which have been present for 2 day(s) C/O Denies Symptom Comments [] [x] Lesion [] [x] Rash [] [x] Lump [] [x] Bump [] [x] Depression [] [x] abscess [] [x] cellulitis [] [x] itching [x] [] pain [] [x] burning [] [x] Sensation of insects crawling Additional Comments: Pt reports she thought he had an ingrown toenail and used a nipper to remove it. Pt's rt big toe is now red swollen and painful. Some bloody drainage from corner of nailbed. Pt denies fever/chills/NVD. ROS: A complete system ROS was performed and negative aside from the pertinent positives noted in the HPI and PE. Physical Exam Constitutional: Appearance: Normal appearance. HENT: Head: Normocephalic and atraumatic. Skin: General: Skin is warm and dry. Capillary Refill: Capillary refill takes less than 2 seconds. Comments: Right great toe: paronychia noted lateral edge nail bed Neurological: Mental Status: She is alert. Psychiatric: Mood and Affect: Mood normal. 1. Paronychia of great toe of right foot (Primary) Diagnosis and medication discussed. Epsom salt soaks as directed. Push fluids. Good handwashing. ToER for marked worsening of symptoms. - cephalexin (Keflex) 500 MG capsule; Take 1 capsule (500 mg) by mouth in the morning and 1 capsule(500 mg) in the evening and 1 capsule (500 mg) before bedtime. Do all this for 10 days. Dispense: 30 capsule; Refill: 0 [id number] Hospital Discharge instructions Additional Instructions Avoid soaking or swimming Sutures should be removed in 7 to 10 days Observe for signs of infection redness, swelling, purulent drainage follow-up immediately Tylenol or Motrin if needed for [facility] Work Phone: 1(100) 756-165306-19-2024 Hospital Discharge instructions Additional Instructions Avoid soaking or swimming Sutures should be removed in 7 to 10 days Observe for signs of infection redness, swelling, purulent drainage follow-up immediately Tylenol or Motrin if needed for [facility] Work Phone: 1(183) 642-988502-02-2024 Evaluation note* Encounter Date Diagnosis Assessment Notes Treatment Notes Treatment Clinical Notes Oct, Acute non-recurrent maxillary sinusitis (ICD-10 - J01.00) Sinus infections [...] verbalized understanding and agreement with treatment plan. [facility] Other 12-12-2023 Note [id number]-29-2023 Evaluation note* Encounter Date Diagnosis Assessment [...] pain, shortness o fbreath, pain with breathing. [facility] Other 10-27-2023 Evaluation note* Encounter Date Diagnosis Assessment Notes Treatment Notes Treatment Clinical Notes Jun, Syncope, unspecified syncope type (ICD-10 - R55) Discussed possible etiologies - dehydration, illness, stress. will check labs and EKG to be complete. Has never had this problem before or since this episode. Jun, Hypothyroidism (ICD-10 - E03.9) chronic problem, due for labs. [facility] Other 01-26-2023 Evaluation note* Encounter Date Diagnosis [...] even if you start to feel better. [facility] Other 01-25-2023 Evaluation note* Encounter Date Diagnosis [...] days. Sep, Sore throat (ICD-10 - J02.9) [facility] Other Evaluation noteNo assessment information available [facility] Work Phone: Evaluation noteNo InformationNort [facility] Other Evaluation note* Diagnosis Paronychia of great toe of right foot- Primary documented in this encounter [facility] HealthcareEvaluation note* Diagnosis PCOS (polycystic ovarian syndrome)- Primary Polycystic ovaries Vitamin D deficiency Encounter for dietary consultation Class 2 obesity due to excess calories without serious comorbidity with body mass index (BMI) of 39.0 to 39.9 in adult Paras's disease ([facility]) Chronic lymphocytic thyroiditis documented in this encounter [facility] general Narrative - Reported* Type Description Date Medical History Hypothyroidism Medical History Anxiety Medical History Bacterial sinusitis Medical History Anxiety and depression Medical History Migraine Medical History Tension-type headache, unspecifi ed, intractable Surgical History appendectomy 2020 Surgical History wisdom teeth Hospitalization History see surgical hx [facility] Other Hospital Discharge instructions Additional Instructions Increase your intake of fluids. Take Motrin Tylenol as needed for any recurrent headache. Take Zofran as prescribed for any nausea or vomiting. Follow-up with your primary care physician within 5 to 7 days for any recurrent symptoms.[facility] Work Phone: Hospital Discharge instructionsAmbulatory Orders* Referral to Gastroenterology Location: None Selected [facility] Work Phone: Instructions * Patient Instructions* Jaz Campos PA-C - 08/06/2020 12:48 PM EST Please go directly to [facility] Emergency Room for further evaluation and treatment. Address: [address] [place] [address] documented in this encounter History of Present Illness * Jaz Campos PA-C - 08/06/2020 12:47 PM EST [facility] Brief Evaluation Form Patient Name: [facility] Location: Rhea Corcoran [address] [place] [address] Date Of : Date Of Visit: 2000 08/06/2020 MRN# Provider: [id number] Jaz Campos PA-C SUBJECTIVE Rhea Corcoran presented to [facility] with Abdominal Pain (horrible cramping all over abd since 4am today. rates pain 7/10) HPI: Patient woke up at 0400 with [...] abdominal pain Medical Decision Making: Send to [facility] ED. Suspect patient needs labs and advanced imaging. [facility] COVID-19 suspected symptoms and mask status: Does the patient have suspected COVID-19 symptoms? No, the patient does not have COVID-19 symptoms,the patient WAS wearing a mask during the visit and I (the provider) WAS wearing a mask during the visit. PLAN Patient is being recommended to go to [facility] for further evaluation and treatment. 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 Expl anation Advance Directives and Living Will Documents on File Type Date Recorded Patient Replenishment Merchandising Associate Expl anation Advance Directives and Livin g Will 08/06/2020 5:25 PM Latest Code Status on File Code Status Date Activated Date Inactivated Comments Full Code - Unverified 08/06/2020 7:26 PM 08/07/2020 4 :20 PM Advance Directive Response Recorded Date/ Time Advance Directives No January 26, 2021 10:27am Advance Directive Response Recorded Date/ Time Advance Directives No January 08, 11:40am Advance Directive Response Recorded Date/ Time Advance Directives No January 08 10:40am Summary Purpose Family History No Family History Records FoundNo Family History Records FoundNo Family History Records FoundNo Family History Records FoundNo Family History Records FoundNo Family History Records Found Discharge Instructions * Attachments The following attachments cannot be sent through Care Everywhere. * Appendectomy: Post-op (Citizen [place]) documented in this encounter Chief Complaint and Reason for Visit Chief Complaint nausea and dizzyness Chief Complaint left thumb laceratio n Chief Complaint left thumb laceratio n L thumb stitch untied Chief Complaint Admit Date CC Adult Risk Stratification August 11:14am wellness August 31, 2024 2 :35pm Congestion, sore throat, earache Decembe r 2023 9:19am Throwing Up October 30, 2024 3 :21pm Reason for Visit Admit Date Fatigue August 31, 2024 2 :35pm Hypothyroid August 31, 2024 2 :35pm Wellness examination August 31, 2024 2:35pm URI (upper respiratory infection) Decemb er 2023 9:19am GERD (gastroesophageal reflux disease) F ebruary 2024 3:21pm Additional Source Comments Reason for Visit (unrecogniz ed section and content) Reason Comments Abdominal Pain horrible cramping al l over abd since 4am today. rates pain 7/10 Reason Comments Abdominal Pain Emesis Status Reason Specialty Diagnoses / Procedures Referre d By Contact Referred To Contact Diagnoses Acute appendicitis Appendicolith Appendicitis, unspecified appendicitis type Reason Comments Polycystic Ovary Syndrome NEW NO A1C IN THE PAST/ SOME LABS NO REFERRL INFORMATION SOURCE (unrecogn ized section and content) DATE CREATED AUTHOR 08/06/2020 [facility] DATE CREATED AUTHOR AUTHOR'S ORGANIZ ATION 08/15/2020 [facility] DATE CREATED AUTHOR AUTHOR'S ORGANIZ ATION 12/29/2022 [facility] DATE CREATED AUTHOR AUTHOR'S ORGANIZ ATION 10/03/2023 [facility] DATE CREATED AUTHOR AUTHOR'S ORGANIZ ATION 05/13/2024 [facility] DATE CREATED AUTHOR AUTHOR'S ORGANIZ ATION 10/23/2024 [facility] Zane Robin MD - 08/07/2020 7:03 AM Brandon Coombs MD - 08/06/2020 5:48 PM EST H&P Notes (unrecognized sect ion and content) INTERVAL HISTORY AND PHYSICAL Patient Name: Rhea Corcoran Admit Date: MR #: [id number] : 2000 The H&P has been reviewed and the patient has been examined. I concur with the findings of the H&P. There are no significant changes. It is appropriate to proceed with the planned procedure. Zane Jimenez MD 08/07/2020 7:03 AM General Surgery H&P Note Patient Name: Rhea Corcoran Admit Date: MR #: [id number] : 2000 Assessment/Plan: Ms. Rhea Corcoran is a 20 y.o. female w/ PMH of anxiety and PCOS who presents to [facility] on 08/06 for abdominal pain. -CT [...] of anxiety and PCOS who presents to [facility] on 08/06 for abdominal pain. Her [...] file Gets together: Not on file Attends hinduism service: Not on file Active member of [...] called by Dr. Brii Young to Dr. ISAAC GIBSON on 08/06/2020 at 17:30. 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 I discussed the case with the resident/GATE GUARD and agree with the findings and plan as documented in his/her note and/or any note I supplied. Risks and benefits of lap appy are explained. She agrees to proceed.documented in this encounter Natali Fitzpatrick RN - 08/06/2020 8:58 PM ESTMicheal Mendenhall - 08/06/2020 5:45 PM Micheal Venegas - 08/06/2020 5:42 PM Isaac Walter PA-C - 08/06/2020 5:09 PM EST ED Notes (unrecognized secti on and content) Pt w/ episode of emesis immediately after ingestion of oxicodone, zofran given at this time Dr conner to speak to dr garcia on 1200 Dr conner to write orders for admission [phone] ED PROVIDER NOTE [facility] EM[facility] NAME: Rhea Corcoran AGE: 20 y.o. : 2000 VISIT DATE: 08/06/2020 CSN: [id number] PCP: Physician No Chief Complaint Patient presents with Abdominal Pain Emesis HPI Reha Corcoran is a 20 y.o. female that [...] file Gets together: Not on file Attends hinduism service: Not on file Active member of [...] nursing note reviewed. Exam conducted with a hotel maintenance worker present. Constitutional: Appearance: Normal appearance. She is [...] Yellow Clarity, Urine Hazy (A) Clear Specific [place] 1.033 (H) 1.005 - 1.025 pH, Urine [...] called by Dr. Brii Young to Dr. ISAAC GIBSON on 08/06/2020 at 17:30. Workstation ID: [id number] Procedures [facility] This is a 20-year-old female presents emergency [...] evaluation of possible pre-hypertension or hypertension. . Isaac Gibson PA-C 08/06/20 1736 Pt reports feeling [...] the patient. I discussed the patient with GATE GUARD/PA. I agree with the GATE GUARD/PA treatment plan. I agree with the GATE GUARD/PA plan of care. I agree with the GATE GUARD/PA dispo as documented. The patient has been [...] Team Status: Inactive Member Role Status Dates Sarah Olmos MD Primary Care Provider Active Jaz Farrell DO Emergency Provider Active Team Status: Active Member Role Status Dates Sarah Olmos MD Primary Care Provider Active Team Status: Active Member Role Status Dates Sarah Olmos MD Primary Care Provide r, Attending Provider Active Start: January 11, 2024 Team Status: Inactive Member Role Status Dates Sarah Olmos MD Primary Care Provider Active Start: March 14, 2024 End: March 14, 2024 Arielle Payne APRN Emergency Provider Active Start: March 14, 2024 End: March 14, 2024 Team Status: Inactive Member Role Status Dates Sarah Olmos MD Primary Care Provider Active Start: March 15, 2024 End: March 15, 2024 Tonie Salas APRN Emergency Provider Active Start: March 15, 2024 End: March 15, 2024 Exhaust And Muffler Fitter Relationship Specialty Start Date End Date Sarah Olmos MD [address] [place] [address] PCP - General Family Medicine 04/18/23 Ex[employer] And Muffler Fitter Relationship Specialty Start Date End Date Sarah Olmos MD [address] [place] [address] PCP - General Family Medicine 04/18/23 Exhaust And Muffler Fitter Relationship Specialty Start Date End Date Sarah Olmos MD [address] [place] [address] PCP - General Family Medicine 04/18/23 Team Status: Active Member Role Status Dates Sarah Olmos MD Primary Care Provide r, Attending Provider Active Start: August 31, 2024 Team Status: Inactive Member Role Status Dates Sarah Olmos MD Primary Care Provide r, Attending Provider Active Start: August 31, 2024 End: August 31, 2024 Team Status: Inactive Member Role Status Dates Sarah Olmos MD Primary Care Provider Active Start: September 24, 2024 End: September 24, 2024 Rossy Dawn APRN Attending Provider Active Start: September 24, 2024 End: September 24, 2024 Team Status: Inactive Member Role Status Dates Sarah Olmos MD Primary Care Provide r, Attending Provider Active Start: October 30, 2024 End: October 30, 2024 Goals (unrecognized section and content) Goals may be documented in a n alternate sectionNo InformationNo InformationNo InformationNo InformationNo InformationNo InformationNo InformationGoals may be documented in an alternate sectionGoals may be documented in an alternate sectionGoals [...] BE BASED ON THE PRIMARY CLINICAL RECORDS. [facility]. provides no warranty or guarantee of the accuracy or completeness of information in this document.
--- NOTE | 2024-11-13 17:53 | ED_ITS ---
HPI HPI - General Adult General Chief complaint: Nausea/Vomiting/Diarrhea Stated complaint: nausea/ vomiting Time Seen by Provider: 11/13/24 17:38 Source: patient Mode of arrival: walk-in Limitations: no limitations History of Present Illness HPI narrative: Patient is a 24-year-old female who presents to the emergency department for increased vomiting today. She denies any significant abdominal pain. She states her throat is sore now that she has vomited multiple times. She has had no fevers or upper respiratory symptoms. She states for the last several weeks she has been vomiting 2-3 times daily, her primary care provider placed her on a medication that she does not know the name of and she is supposed to take it once in the morning and once at night. She has not noted any improvement with these medications. She states she is supposed to see a GI doctor next week for endoscopy. She has had a previous appendectomy, no other abdominal surgeries. She has no concern for . She has not had any diarrhea or urinary symptoms. Related Data Previous Rx's ?Medication ?Instructions ?Recorded ondansetron 4 mg disintegrating 4 mg PO Q6H PRN nausea and 11/13/24 tablet vomiting #12 tabs pantoprazole 40 mg tablet,delayed 40 mg PO DAILY #7 tabs 11/13/24 release (Protonix) Allergies Allergy/AdvReac Type Severity Reaction Status Date / Time No Known Drug Allergies Allergy Verified 11/13/24 17:37 Opioid HPI Opioid Management Most Recent Opioid Data: Last Pain Scale 5 04/14/24 15:05 04/14/24 Review of Systems ROS Constitutional Denies: fever or chills Ears, nose, mouth, and throat Reports: throat pain; Denies: nasal congestion Cardiovascular Denies: chest pain Respiratory Denies: shortness of breath Gastrointestinal Reports: nausea and vomiting; Denies: abdominal pain or diarrhea Musculoskeletal Denies: back pain Integumentary/Breast Denies: rash Neurological Denies: numbness in extremities or weakness in extremities Hematologic/Lymphatic Denies: easy bruising or easy bleeding PFSH PFSH Social History Smoking status: Never smoker Little interest or pleasure in doing things: not at all Feeling down, depressed, or hopeless: not at all Exam Narrative Exam Narrative: Gen.: Awake, alert, in no distress Head: Normocephalic, atraumatic ENT: Moist mucous membranes Respiratory: No respiratory distress, lungs clear bilaterally Cardio: Regular rate and rhythm Gastrointestinal: Abdomen is soft, nondistended and nontender to palpation Extremities: Moves extremities equally Psych: Normal mood and affect Neuro: No focal neuro deficit Skin: Warm, dry, intact Constitutional Vital Signs, click to edit/add: Last Vital Signs Temp 98 F 11/13/24 17:38 Pulse 96 H 11/13/24 17:38 Resp 16 11/13/24 17:38 BP 174/96 H 11/13/24 17:38 Pulse Ox 100 11/13/24 17:38 O2 Del Method Room Air 11/13/24 17:38 Course Vital Signs Vital signs: Vital Signs Temperature 98 F 11/13/24 17:38 Pulse Rate 96 H 11/13/24 17:38 Respiratory Rate 16 11/13/24 17:38 Blood Pressure 174/96 H 11/13/24 17:38 Pulse Oximetry 100 11/13/24 17:38 Oxygen Delivery Method Room Air 11/13/24 17:38 Temperature 98 F 11/13/24 17:38 Pulse Rate 96 H 11/13/24 17:38 Respiratory Rate 16 11/13/24 17:38 Blood Pressure 174/96 H 11/13/24 17:38 Pulse Oximetry 100 11/13/24 17:38 Oxygen Delivery Method Room Air 11/13/24 17:38 Medical Decision Making MDM Narrative Medical decision making narrative: Laboratory studies reviewed and noted unremarkable, CT of the abdomen and pelvis was reviewed by the radiologist with evidence of mild enteritis and mild mesenteric adenitis. Abdomen is soft and benign and the patient is hemodynamically stable. She will be placed on Zofran and Protonix. She was given IV fluids, Zofran and Protonix in the ER with significant improvement. She should still follow-up next week for endoscopy and follow-up with GI. Return to the ER if symptoms change or worsen SHARED APC VISIT, PHYSICIAN ATTESTATION: [id number] I performed a substantive part of the MDM during the patient?s E/M visit. I personally evaluated and examined the patient. I personally made or approved the documented management plan and acknowledge its risk of complications. Medical Records Medical records reviewed: Yes I reviewed the patient's medical records Lab Data Lab results reviewed: Yes I reviewed the patient's lab results Labs: Lab Results 11/13/24 11/13/24 11/13/24 Range/Units 17:55 18:25 18:46 WBC 11.0 (4.0-11.0) 10^3/uL RBC 5.16 (4.20-5.40) 10^6/uL Hgb 13.7 (12.0-16.0) g/dL Hct 42.0 (36.0-48.0) % MCV 81.4 (81.0-99.0) fL MCH 26.6 L (26.7-34.0) pg MCHC 32.6 (29.9-35.2) g/dL RDW 13.8 (11.0-15.0) % Plt Count 361 (150-450) 10^3/uL MPV 8.6 L (9.5-13.5) fL Neut % (Auto) 63.7 (43.0-75.0) % Lymph % (Auto) 26.7 (20.5-60.0) % [place] % (Auto) 7.8 (1.7-12.0) % Eos % (Auto) 1.0 (0.9-7.0) % Baso % (Auto) 0.6 (0.2-2.0) % Neut # (Auto) 7.0 H (1.4-6.5) 10^3/uL Lymph # (Auto) 2.9 (1.2-3.8) 10^3/uL [place] # (Auto) 0.9 H (0.3-0.8) 10^3/uL Eos # (Auto) 0.1 (0.0-0.7) 10^3/uL Baso # (Auto) 0.1 (0.0-0.1) 10^3/uL Abs Immat Gran (auto) 0.02 (0.00-0.03) 10^3/uL Imm/Tot Granulo (auto) 0.2 (0.0-0.5) % Sodium 138 (136-145) mmol/L Potassium 3.4 L (3.5-5.1) mmol/L Chloride 102 (98-107) mmol/L Carbon Dioxide 26.8 (21.0-32.0) mmol/L Anion Gap 12.6 BUN 7.0 (7.0-18.0) mg/dL Creatinine 0.98 (0.55-1.02) mg/dL Est GFR ( Amer) >60 (>=60 mL/min/1.73m^2) Est GFR (Non-Af Amer) >60 (>=60 mL/min/1.73m^2) BUN/Creatinine Ratio 7.1 Glucose 90 (74-106) mg/dL Lactate 1.1 (0.4-2.0) mmol/L Calcium 9.7 (8.5-10.1) mg/dL Total Bilirubin 0.3 (0.2-1.0) mg/dL AST 32 (15-37) U/L ALT 60 H (14-59) U/L Alkaline Phosphatase 81 (46-116) U/L Total Protein 8.4 H (6.4-8.2) g/dL Albumin 4.4 (3.4-5.0) g/dL Globulin 4.0 g/dL Albumin/Globulin Ratio 1.1 Lipase 39.0 (16.0-77.0) U/L Serum HCG, Qual Negative (NEGATIVE) Urine Color Lt. yellow (YELLOW) Urine Clarity Clear (CLEAR) Urine pH 8.0 (5.0-9.0) Ur Specific [place] 1.015 (1.005-1.025) Urine Protein Negative (NEG/TRACE) mg/dL Urine Glucose (UA) Negative (NEGATIVE) mg/dL Urine Ketones Negative (NEGATIVE) mg/dL Urine Occult Blood Negative (NEGATIVE) Urine Nitrite Negative (NEGATIVE) Urine Bilirubin Negative (NEGATIVE) Urine Urobilinogen 0.2 (0.2-1.0) EU/dL Ur Leukocyte Esterase Negative (NEGATIVE) Urine RBC None seen (0-2) #/HPF Urine WBC None seen (NONE SEEN) #/HPF Ur Squamous Epith Cells Rare (NONE/RARE) #/LPF Urine Crystals None seen (None Seen) #/HPF Urine Bacteria Trace A (NONE SEEN) #/HPF Urine Casts None seen (NONE SEEN) #/LPF Urine Mucus None seen (NONE SEEN) Ur Culture Indicated? No Imaging Data CT scan - abdomen: Attestation: I have reviewed the pertinent imaging results. Radiologist's impression: Mild enteritis, mild mesenteric adenitis. Fatty infiltration of liver. No pancreatitis or cholecystitis. No pyelonephritis. No free fluid or free air. Previous appendectomy. Small follicular cyst in the right and left ovary. No renal or bowel obstruction. Discharge Plan Discharge Chief Complaint: Nausea/Vomiting/Diarrhea Clinical Impression: Nausea & vomiting Patient Disposition: Home, Self-Care Time of Disposition Decision: 20:27 Condition: Good Prescriptions / Home Meds: New pantoprazole [Protonix] 40 mg tablet,delayed release (DR/EC) 40 mg PO DAILY Qty: 7 0RF ondansetron 4 mg tablet,disintegrating 4 mg PO Q6H PRN (Reason: nausea and vomiting) Qty: 12 0RF Print Language: Macedonian Instructions: Acute Nausea and Vomiting (ED) Referrals: Meena Tim MD [Primary Care Provider] - 1 week
[2024-11-13 18:18] LABS: Bilirubin Urine NEGATIVE (NEGATIVE); Blood Urine NEGATIVE (NEGATIVE); Clarity Urine CLEAR (CLEAR); Color Urine LT. YELLOW (YELLOW); Glucose Urine UA NEGATIVE (NEGATIVE); Ketones Urine NEGATIVE (NEGATIVE); Leukocyte Esterase Urine NEGATIVE (NEGATIVE); Nitrite Urine NEGATIVE (NEGATIVE); Protein Urine NEGATIVE (NEG/TRACE); Specific Gravity Urine 1.015 (1.005-1.025); Urobilinogen Urine 0.2 EU/dL (0.2-1.0)
[2024-11-13 18:27] LABS: Bacteria Urine TRACE #/HPF (NONE SEEN); RBC Urine NONE SEEN #/HPF (0-2); WBC Urine NONE SEEN #/HPF (NONE SEEN)
[2024-11-13 18:28] LABS: Cast Seen? NONE SEEN #/LPF (NONE SEEN); Crystals Seen? None Seen #/HPF (None Seen); Mucus Urine NONE SEEN (NONE SEEN); Squamous Epithelial Cell Urine RARE #/LPF (NONE/RARE); Urine Culture Indicated NO
[2024-11-13 18:35] LABS: Basophils Absolute Auto 0.1 10^3/uL (0.0-0.1); Basophils Percent Auto 0.6 % (0.2-2.0); Eosinophils Absolute Auto 0.1 10^3/uL (0.0-0.7); Hemoglobin 13.7 g/dL (12.0-16.0); Immature Granulocytes Abs Auto 0.02 10^3/uL (0.00-0.03); Immature Granulocytes Pct Auto 0.2 % (0.0-0.5); Lymphocytes Absolute Auto 2.9 10^3/uL (1.2-3.8); Lymphocytes Percent Auto 26.7 % (20.5-60.0); Mean Corpuscular HGB Conc 32.6 g/dL (29.9-35.2); Mean Corpuscular Hemoglobin 26.6 pg (26.7-34.0); Mean Corpuscular Volume 81.4 fL (81.0-99.0); Mean Platelet Volume 8.6 fL (9.5-13.5); Monocytes Absolute Auto 0.9 10^3/uL (0.3-0.8); Monocytes Percent Auto 7.8 % (1.7-12.0); Neutrophils Percent Auto 63.7 % (43.0-75.0); Platelet Count 361 10^3/uL (150-450); Red Blood Count 5.16 10^6/uL (4.20-5.40); Red Cell Distribution Width 13.8 % (11.0-15.0)
[2024-11-13] MEDS: 0.9 % SODIUM CHLORIDE 1,000 ML 999 ML IV (18:50)
[2024-11-13 18:51] LABS: HCG Qualitative NEGATIVE (NEGATIVE); Internal Control Within Normal Limits
[2024-11-13 18:52] LABS: Alanine Aminotransferase 60 U/L (14-59); Albumin Globulin Ratio 1.1; Albumin Level 4.4 g/dL (3.4-5.0); Alkaline Phosphatase 81 U/L (46-116); Anion Gap 12.6; Aspartate Amino Transferase 32 U/L (15-37); BUN Creatinine Ratio 7.1; Bilirubin Total 0.3 mg/dL (0.2-1.0); Calcium 9.7 mg/dL (8.5-10.1); Carbon Dioxide 26.8 mmol/L (21.0-32.0); Chloride 102 mmol/L (98-107); Estimated GFR (African America >60 (>=60 mL/min/1.73m^2); Estimated GFR (Non-African Ame >60 (>=60 mL/min/1.73m^2); Glucose 90 mg/dL (74-106); Potassium 3.4 mmol/L (3.5-5.1); Sodium 138 mmol/L (136-145); Total Protein 8.4 g/dL (6.4-8.2)
[2024-11-13] MEDS: ONDANSETRON PF 4 MG/2 ML VIAL IV (18:53)
[2024-11-13] MEDS: PANTOPRAZOLE SODIUM 40 MG VIAL IV (18:55)
[2024-11-13 19:12] LABS: Lactate/Lactic Acid 1.1 mmol/L (0.4-2.0)
[2024-11-13 20:35] VITALS: BP 152/88; PULSE 82; O2SAT 98
== END 2024-11-13 20:37 | disposition home or self-care (01) ==
PROVIDERS: Physician Assistant; Emergency Provider Emergency Medicine; PCP Family Medicine
DX: R11.2 Nausea with vomiting, unspecified (principal); K52.9 Noninfective gastroenteritis and colitis, unspecified; I88.0 Nonspecific mesenteric lymphadenitis
CPT/HCPCS: 36415; 74177; 80053; 81001; 83605; 83690; 84703; 85025; 96361; 96374; 96375; 99285; J2405; Q9967

== ENCOUNTER 2024-12-05 15:29 | Outpatient (OUT) | payer OTHER, SELFPAY ==
[2024-12-06 16:09] LABS: Deamidated Gliadin Abs, IgA >150 units (0-19); Deamidated Gliadin Abs, IgG 34 units (0-19); Endomysial Antibody IgA Positive (Negative); Immunoglobulin A, Qn, Serum 261 mg/dL (87-352); t-Transglutaminase (tTG) IgA >100 U/mL (0-3); t-Transglutaminase (tTG) IgG 6 U/mL (0-5)
== END 2024-12-05 15:30 | disposition home or self-care (01) ==
LOC: LAB 15:31
PROVIDERS: PCP Family Medicine; Visit Provider Internal Medicine
DX: K90.0 Celiac disease (principal)
CPT/HCPCS: 36415; 81377; 82784; 86231; 86258; 86364